=== PATIENT | female | born 1960 | race Caucasian/White ===

== ENCOUNTER 2019-01-30 07:50 | Emergency (ER) | payer BC ==
--- OUTSIDE RECORDS SUMMARY | 2019-01-30 08:04 | XMS REPORT | Continuity of Care Document ---
:1960 External Reference #:[id number] Author Name Bhavana Ragland, [employer] Address [address] [place] [address] Care Team Providers Name Role Phone Danna Capps MD - Internal Medicine Care Team Information International Logistics Coordinator [phone] Jose Newton M.D. - Radiation Care Team Information International Logistics Coordinator [phone] Oncology Problems Active Problems Provider Date Vitamin D deficiency Wilma Goodrich DO Onset: 08/28/2018 Malignant neoplasm of lower lobe, bronchus or Wilma Goodrich DO Onset: 04/2019 lung Screening for malignant neoplasm of colon Chirag Moran MD Onset: 06/01/2016 Digestive symptom Chirag Moran MD Onset: 06/01/2016 Social History Type Date Description Comments Sex Unknown ETOH Use Currently consumes alcohol socially Tobacco Use Start: Unknown End: Patient is a former smoker Recreational Drug Use Denies Drug Use Allergies, Adverse Reactions, Alerts Active Allergies Reaction Severity Comments Date NKDA 08/17/2018 Decongestion make Pt feel high 08/17/2018 Inactive Allergies NKDA 06/01/2016 NKDA 08/17/2018 Medications Active Medications SIG Qnty Indications Ordering Date Provider Docu Soft 1 capsule by mouth 60caps Bokelseyal, 10/11/2018 100mg twice a day as Wilma, DO Capsules needed for constipation Senokot take 1-2 tablets by 60tabs Boufal, 10/11/2018 8.6mg Tablets mouth twice daily Wilma, DO as needed for constipation Emla apply 20 min prior 75gm Crystal, 08/29/2018 2.5-2.5% Cream to port access Wilma, DO Decadron 1 tabl by mouth 6tabs Crystal, 08/28/2018 4mg Tablets twice a day start DO Wilma day before chmo Pantoprazole Sodium 1 tabl by mouth 90tabs Crystal, 08/28/2018 every day DO Wilma 40mg Tablets Ondansetron take one tablet by 30tabs Vidawv, 08/28/2018 8mg Tablets mouth every 8 hours DO Wilma Dispers as needed for nausea Folic Acid 1 tabl by mouth 30tabs Crystal, 08/19/2018 1mg Tablets every day DO Wilma Celexa 1 by mouth every Unknown 20mg Tablets day Meloxicam 1 tablet daily Unknown 15mg Tablets Symbicort 2 puffs PO bid Lamar, 80-4.5mcg/Act Gala Garcia Aerosol Bupropion Rom, Hydrochloride ER (XL) Gypsy BRIGHT 300mg Tablets ER 24HR History Medications Ergocalciferol 1 cap by mouth 6caps Wilma Goodrich, 08/18/2018 - 98358Heyl every week DO 01/03/2019 Capsules Medications Administered in Office Medication SIG Qnty Indications Ordering Provider Date Vitamin B12 Injection 1000 Wilma Goodrich, DO 08/17/2018 mcg/Ml Injection Immunizations Description No Information Available Vital Signs Date Vital Result Comment 01/03/2019 10:35am BP Systolic 144 mmHg BP Diastolic 96 mmHg Body Temperature 97.3 F Heart Rate 88 /min Respiratory Rate 20 /min Weight 219.00 lb O2 % BldC Oximetry 97 % Pain Level 0 12/13/2018 10:20am BP Systolic 134 mmHg Left BP Diastolic 91 mmHg Left Body Temperature 97.7 F Heart Rate 96 /min Respiratory Rate 20 /min Weight 217.38 lb O2 % BldC Oximetry 97 % Pain Level 0 Results Test Date Facility Test Result H/L Range Note CBC 01/02/2019 [facility] White Blood 4.5 K/uL Normal 3.1-10.7 1 W/Automated [address] [place] [address] [phone] Red Blood Count 3.68 M/uL Low 3.90-5.40 Hemoglobin 12.6 gm/dL Normal 11.6-15.8 Hematocrit 36.9 % Normal 36.0-46.1 Mean Cell Volume 100.3 fl High 80.9-99.0 Mean Corpuscular HGB 34.2 pg High 25.9-32.7 Mean Corpuscular HGB Conc 34.1 g/dL Normal 30.8-34.3 Platelet Count 178 K/uL Normal 155-360 Red Cell Distri Width SD 59.3 fl High 36-47 Red Cell Distri Width %CV 16.2 % High 11.7-14.4 Mean Platelet Volume 9.3 fl Normal 8.9-12.4 Neut% 89.4 % High 40.4-72.8 Lymph % 7.2 % Low 20.0-42.0 Evans % 2.5 % Low 4.3-13.2 Eo% 0.0 % Normal 0.0-6.6 Bas% 0.2 % Normal 0.0-1.1 Immature Grans 0.7 % Normal 0.0-5.0 NRBC % 0.0 /100WBC < 10/ 100 WBC Neut# 3.98 K/uL Normal 1.8-7.0 Lymph # 0.32 K/uL Low 1.0-4.0 Evans # 0.11 K/uL Low 0.3-0.9 Eos # 0.00 K/uL Normal 0.0-0.5 Baso # 0.01 K/uL Normal 0.0-0.1 Immature Grans Absolute 0.03 K/uL NRBC # 0.00 K/uL Comprehensive Metabolic 01/02/2019 [facility] Glucose 201 mg/dL High 74-106 Panel [address] [place] [address] [phone] BUN 21 mg/dL High 7-18 Creatinine 1.0 mg/dL Normal 0.6-1.3 Glom Filtration Rate, Estimate >60 mL/min >60 If >60 mL/min >60 2 BUN/Creat 21.0 ratio Sodium 136 mmol/L Normal 136-145 Potassium 4.3 mmol/L Normal 3.5-5.1 Chloride 105 mmol/L Normal 98-107 Carbon Dioxide 23 mmol/L Normal 21-32 Anion Gap 8 mEq/L Normal 8-16 Calcium 9.1 mg/dL Normal 8.5-10.1 Total Protein 7.7 g/dL Normal 6.4-8.2 Albumin 3.2 g/dL Low 3.4-5.0 Globulin 4.5 g/dL High 1.9-4.3 Alb/Glob 0.7 ratio Bilirubin,Total 0.2 mg/dL Normal 0.2-1.0 Sgot/Ast 30 U/L Normal 15-37 SGPT/Alt 45 U/L Normal 12-78 Alkaline Phosphatase 146 U/L High 45-117 Laboratory test 01/02/2019 [facility] Magnesium 2.0 mg/dL Normal 1.8-2.[address] [place], [place] [id number] [phone] CBC W/Automated 12/27/2018 [facility] White Blood 4.2 K/uL Normal 3.1-10.7 [address] [place] [address] [phone] Red Blood Count 3.33 M/uL Low 3.90-5.40 Hemoglobin 11.1 gm/dL Low 11.6-15.8 Hematocrit 33.3 % Low 36.0-46.1 Mean Cell Volume 100.0 fl High 80.9-99.0 Mean Corpuscular HGB 33.3 pg High 25.9-32.7 Mean Corpuscular HGB Conc 33.3 g/dL Normal 30.8-34.3 Platelet Count 104 K/uL Low 155-360 Red Cell Distri Width SD 55.5 fl High 36-47 Red Cell Distri Width %CV 15.9 % High 11.7-14.4 Mean Platelet Volume 9.2 fl Normal 8.9-12.4 Neut% 66.8 % Normal 40.4-72.8 Lymph % 13.4 % Low 20.0-42.0 Evans % 17.9 % High 4.3-13.2 Eo% 1.2 % Normal 0.0-6.6 Bas% 0.2 % Normal 0.0-1.1 Immature Grans 0.5 % Normal 0.0-5.0 NRBC % 0.0 /100WBC < 10/ 100 WBC Neut# 2.79 K/uL Normal 1.8-7.0 Lymph # 0.56 K/uL Low 1.0-4.0 Evans # 0.75 K/uL Normal 0.3-0.9 Eos # 0.05 K/uL Normal 0.0-0.5 Baso # 0.01 K/uL Normal 0.0-0.1 Immature Grans Absolute 0.02 K/uL NRBC # 0.00 K/uL Differential-WBC Confirm 12/19/2018 [facility] Total Cells 100 #CELLS [address] [place] [address] [phone] Neutrophils% 65 % Normal 33-73 Lymph% 20 % Normal 20-42 Monocyte% 11 % High 0-10 Eosinophil% 1 % Normal 0-5 Basophil% 3 % High 0-2 Platelet Estimate NORMAL RBC Morphology NORMAL Laboratory test 12/19/2018 [facility] Path Review: <pending> finding [address] [place] [address] [phone] Slide Review 12/19/2018 [facility] Slide Review DIFF ORDERED [address] [place], [place] [id number] [phone] Laboratory test 12/19/2018 [facility] Vitamin 24.5 ng/mL Low 30.0- 4 finding [address] D,25-Hydroxy 100.0 [place] [address] [phone] Vitamin B12 And 12/19/2018 [facility] Vitamin B12 1343 pg/mL High 193-9 Folate [address] [place], [place] [id number] [phone] Folic Acid > 20.0 ng/mL High 3.1-17.5 Laboratory test 12/19/2018 [facility] Ferritin 618 ng/mL High 8-252 finding [address] [place] [address] [phone] Iron-Tibc-%Sat 12/19/2018 [facility] Serum Iron 264 g/dL High 50-170 [address] [place] [address] [phone] Total Iron Binding Capacity 332 g/dL Normal 250-450 Transferrin %Saturation 80 % High 12-57 Laboratory test 12/19/2018 [facility] Magnesium 2.1 mg/dL Normal 1.8-2.4 finding [address] [place] [address] [phone] Comprehensive 12/19/2018 [facility] Glucose 106 mg/dL Normal 74-106 Metabolic Panel [address] [place] [address] [phone] BUN 17 mg/dL Normal 7-18 Creatinine 0.9 mg/dL Normal 0.6-1.3 Glom Filtration Rate, Estimate >60 mL/min >60 If >60 mL/min >60 5 BUN/Creat 18.8 ratio Sodium 140 mmol/L Normal 136-145 Potassium 4.3 mmol/L Normal 3.5-5.1 Chloride 106 mmol/L Normal 98-107 Carbon Dioxide 29 mmol/L Normal 21-32 Anion Gap 5 mEq/L Low 8-16 Calcium 8.8 mg/dL Normal 8.5-10.1 Total Protein 7.1 g/dL Normal 6.4-8.2 Albumin 3.3 g/dL Low 3.4-5.0 Globulin 3.8 g/dL Normal 1.9-4.3 Alb/Glob 0.9 ratio Bilirubin,Total 0.4 mg/dL Normal 0.2-1.0 Sgot/Ast 33 U/L Normal 15-37 SGPT/Alt 76 U/L 12-78 Alkaline Phosphatase 125 U/L High 45-117 CBC W/Automated 12/19/2018 [facility] White Blood 2.6 K/uL Low 3.1-10.[address] [place] [address] [phone] Red Blood Count 3.56 M/uL Low 3.90-5.40 Hemoglobin 11.9 gm/dL Normal 11.6-15.8 Hematocrit 34.9 % Low 36.0-46.1 Mean Cell Volume 98.0 fl Normal 80.9-99.0 Mean Corpuscular HGB 33.4 pg High 25.9-32.7 Mean Corpuscular HGB Conc 34.1 g/dL Normal 30.8-34.3 Platelet Count 168 K/uL Normal 155-360 Red Cell Distri Width SD 57.0 fl High 36-47 Red Cell Distri Width %CV 15.8 % High 11.7-14.4 Mean Platelet Volume 8.9 fl Normal 8.9-12.4 Neut% 60.7 % Normal 40.4-72.8 Lymph % 22.0 % Normal 20.0-42.0 Evans % 14.5 % High 4.3-13.2 Eo% 1.6 % Normal 0.0-6.6 Bas% 0.8 % Normal 0.0-1.1 Immature Grans 0.4 % Normal 0.0-5.0 NRBC % 0.0 /100WBC < 10/ 100 WBC Neut# 1.55 K/uL Low 1.8-7.0 Lymph # 0.56 K/uL Low 1.0-4.0 Evans # 0.37 K/uL Normal 0.3-0.9 Eos # 0.04 K/uL Normal 0.0-0.5 Baso # 0.02 K/uL Normal 0.0-0.1 Immature Grans Absolute 0.01 K/uL NRBC # 0.00 K/uL Differential-WBC Confirm 12/13/2018 [facility] Total Cells 100 #CELLS 6 [address] [place] [address] [phone] Neutrophils% 92 % High 33-73 Lymph% 7 % Low 20-42 Monocyte% 1 % Normal 0-10 Platelet Estimate NORMAL Polychromasia 0-1+ Anisocytosis 0-1+ Macrocytosis 0-1+ Laboratory test 12/13/2018 [facility] Magnesium 2.1 mg/dL Normal 1.8-2.4 7 finding [address] [place], [place] [id number] [phone] Slide Review DIFF ORDERED 8 Comprehensive Metabolic 12/13/2018 [facility] Glucose 200 mg/dL High 74-106 Panel [address] [place], [place] [id number] [phone] BUN 17 mg/dL Normal 7-18 Creatinine 0.8 mg/dL Normal 0.6-1.3 Glom Filtration Rate, Estimate >60 mL/min >60 If >60 mL/min >60 9 BUN/Creat 21.2 ratio Sodium 139 mmol/L Normal 136-145 Potassium 3.9 mmol/L Normal 3.5-5.1 Chloride 108 mmol/L High 98-107 Carbon Dioxide 25 mmol/L Normal 21-32 Anion Gap 6 mEq/L Low 8-16 Calcium 9.3 mg/dL Normal 8.5-10.1 Total Protein 7.8 g/dL Normal 6.4-8.2 Albumin 3.4 g/dL Normal 3.4-5.0 Globulin 4.4 g/dL High 1.9-4.3 Alb/Glob 0.8 ratio Bilirubin,Total 0.3 mg/dL Normal 0.2-1.0 Sgot/Ast 27 U/L Normal 15-37 SGPT/Alt 38 U/L Normal 12-78 Alkaline Phosphatase 139 U/L High 45-117 CBC W/Automated 12/13/2018 [facility] White Blood 6.6 K/uL Normal 3.1-10.[address] [place], [place] [id number] [phone] Red Blood Count 3.71 M/uL Low 3.90-5.40 Hemoglobin 12.1 gm/dL Normal 11.6-15.8 Hematocrit 35.9 % Low 36.0-46.1 Mean Cell Volume 96.8 fl Normal 80.9-99.0 Mean Corpuscular HGB 32.6 pg Normal 25.9-32.7 Mean Corpuscular HGB Conc 33.7 g/dL Normal 30.8-34.3 Platelet Count 234 K/uL Normal 155-360 Red Cell Distri Width SD 63.7 fl High 36-47 Red Cell Distri Width %CV 17.7 % High 11.7-14.4 Mean Platelet Volume 9.0 fl Normal 8.9-12.4 Neut% 88.3 % High 40.4-72.8 Lymph % 5.9 % Low 20.0-42.0 Evans % 3.6 % Low 4.3-13.2 Eo% 1.5 % Normal 0.0-6.6 Bas% 0.2 % Normal 0.0-1.1 Immature Grans 0.5 % Normal 0.0-5.0 NRBC % 0.0 /100WBC < 10/ 100 WBC Neut# 5.84 K/uL Normal 1.8-7.0 Lymph # 0.39 K/uL Low 1.0-4.0 Evans # 0.24 K/uL Low 0.3-0.9 Eos # 0.10 K/uL Normal 0.0-0.5 Baso # 0.01 K/uL Normal 0.0-0.1 Immature Grans Absolute 0.03 K/uL NRBC # 0.00 K/uL CBC W/Automated 12/06/2018 [facility] White 4.6 K/uL Normal 3.1-10.7 [address] [place] [address] Count [phone] Red Blood Count 3.55 M/uL Low 3.90-5.40 Hemoglobin 11.2 gm/dL Low 11.6-15.8 Hematocrit 34.8 % Low 36.0-46.1 Mean Cell Volume 98.0 fl Normal 80.9-99.0 Mean Corpuscular HGB 31.5 pg Normal 25.9-32.7 Mean Corpuscular HGB Conc 32.2 g/dL Normal 30.8-34.3 Platelet Count 134 K/uL Low 155-360 Red Cell Distri Width SD 65.7 fl High 36-47 Red Cell Distri Width %CV 18.7 % High 11.7-14.4 Mean Platelet Volume 9.2 fl Normal 8.9-12.4 Neut% 66.9 % Normal 40.4-72.8 Lymph % 13.1 % Low 20.0-42.0 Evans % 18.7 % High 4.3-13.2 Eo% 0.7 % Normal 0.0-6.6 Bas% 0.2 % Normal 0.0-1.1 Immature Grans 0.4 % Normal 0.0-5.0 NRBC % 0.0 /100WBC < 10/ 100 WBC Neut# 3.07 K/uL Normal 1.8-7.0 Lymph # 0.60 K/uL Low 1.0-4.0 Evans # 0.86 K/uL Normal 0.3-0.9 Eos # 0.03 K/uL Normal 0.0-0.5 Baso # 0.01 K/uL Normal 0.0-0.1 Immature Grans Absolute 0.02 K/uL NRBC # 0.00 K/uL Comprehensive Metabolic 12/06/2018 [facility] Glucose 120 mg/dL High 74-106 Panel [address] [place] [address] [phone] BUN 21 mg/dL High 7-18 Creatinine 1.0 mg/dL Normal 0.6-1.3 Glom Filtration Rate, Estimate >60 mL/min >60 If >60 mL/min >60 11 BUN/Creat 21.0 ratio Sodium 141 mmol/L Normal 136-145 Potassium 3.9 mmol/L Normal 3.5-5.1 Chloride 109 mmol/L High 98-107 Carbon Dioxide 26 mmol/L Normal 21-32 Anion Gap 6 mEq/L Low 8-16 Calcium 8.7 mg/dL Normal 8.5-10.1 Total Protein 7.3 g/dL Normal 6.4-8.2 Albumin 3.3 g/dL Low 3.4-5.0 Globulin 4.0 g/dL Normal 1.9-4.3 Alb/Glob 0.8 ratio Bilirubin,Total 0.3 mg/dL Normal 0.2-1.0 Sgot/Ast 32 U/L Normal 15-37 SGPT/Alt 49 U/L Normal 12-78 Alkaline Phosphatase 138 U/L High 45-117 Laboratory test 12/06/2018 [facility] Magnesium 2.3 mg/dL Normal 1.8-2.4 [address] [place] [address] [phone] CBC W/Automated 11/27/2018 [facility] White Blood 4.0 K/uL Normal 3.1-10.7 [address] [place] [address] [phone] Red Blood Count 3.96 M/uL Normal 3.90-5.40 Hemoglobin 12.5 gm/dL Normal 11.6-15.8 Hematocrit 37.0 % Normal 36.0-46.1 Mean Cell Volume 93.4 fl Normal 80.9-99.0 Mean Corpuscular HGB 31.6 pg Normal 25.9-32.7 Mean Corpuscular HGB Conc 33.8 g/dL Normal 30.8-34.3 Platelet Count 223 K/uL Normal 155-360 Red Cell Distri Width SD 62.4 fl High 36-47 Red Cell Distri Width %CV 18.2 % High 11.7-14.4 Mean Platelet Volume 8.4 fl Low 8.9-12.4 Neut% 79.1 % High 40.4-72.8 Lymph % 12.3 % Low 20.0-42.0 Evans % 6.0 % Normal 4.3-13.2 Eo% 1.3 % Normal 0.0-6.6 Bas% 0.8 % Normal 0.0-1.1 Immature Grans 0.5 % Normal 0.0-5.0 NRBC % 0.0 /100WBC < 10/ 100 WBC Neut# 3.17 K/uL Normal 1.8-7.0 Lymph # 0.49 K/uL Low 1.0-4.0 Evans # 0.24 K/uL Low 0.3-0.9 Eos # 0.05 K/uL Normal 0.0-0.5 Baso # 0.03 K/uL Normal 0.0-0.1 Immature Grans Absolute 0.02 K/uL NRBC # 0.00 K/uL Comprehensive 11/27/2018 [facility] Glucose 78 mg/dL Normal 74-106 Metabolic Panel [address] [place] [address] [phone] BUN 21 mg/dL High 7-18 Creatinine 0.9 mg/dL Normal 0.6-1.3 Glom Filtration Rate, Estimate >60 mL/min >60 If >60 mL/min >60 14 BUN/Creat 23.3 ratio Sodium 139 mmol/L Normal 136-145 Potassium 4.4 mmol/L Normal 3.5-5.1 Chloride 106 mmol/L Normal 98-107 Carbon Dioxide 28 mmol/L Normal 21-32 Anion Gap 5 mEq/L Low 8-16 Calcium 8.3 mg/dL Low 8.5-10.1 Total Protein 7.2 g/dL Normal 6.4-8.2 Albumin 3.2 g/dL Low 3.4-5.0 Globulin 4.0 g/dL Normal 1.9-4.3 Alb/Glob 0.8 ratio Bilirubin,Total 0.4 mg/dL Normal 0.2-1.0 Sgot/Ast 30 U/L Normal 15-37 SGPT/Alt 54 U/L Normal 12-78 Alkaline Phosphatase 145 U/L High 45-117 Laboratory test 11/27/2018 [facility] Magnesium 2.4 Normal 1.8-2.4 [address] mg/[place] [address] [phone] Slide Review 11/21/2018 [facility] Slide Review (SEE [address], [address] NOTE) 17 [place] [address] [phone] Laboratory test 11/21/2018 [facility] Magnesium 2.3 Normal 1.8-2.[address] mg/[place] [address] [phone] Comprehensive 11/21/2018 [facility] Glucose 209 High 74-106 Metabolic Panel [address] mg/[place] [address] [phone] BUN 17 mg/dL Normal 7-18 Creatinine 1.0 mg/dL Normal 0.6-1.3 Glom Filtration Rate, Estimate >60 mL/min >60 If >60 mL/min >60 18 BUN/Creat 17.0 ratio Sodium 139 mmol/L Normal 136-145 Potassium 4.4 mmol/L Normal 3.5-5.1 Chloride 108 mmol/L High 98-107 Carbon Dioxide 24 mmol/L Normal 21-32 Anion Gap 7 mEq/L Low 8-16 Calcium 9.0 mg/dL Normal 8.5-10.1 Total Protein 7.6 g/dL Normal 6.4-8.2 Albumin 3.3 g/dL Low 3.4-5.0 Globulin 4.3 g/dL Normal 1.9-4.3 Alb/Glob 0.8 ratio Bilirubin,Total 0.2 mg/dL Normal 0.2-1.0 Sgot/Ast 28 U/L Normal 15-37 SGPT/Alt 39 U/L Normal 12-78 Alkaline Phosphatase 153 U/L High 45-117 CBC W/Automated 11/21/2018 [facility] White Blood 4.3 K/uL Normal 3.1-10.[address] [place] [address] [phone] Red Blood Count 3.63 M/uL Low 3.90-5.40 Hemoglobin 11.0 gm/dL Low 11.6-15.8 Hematocrit 34.7 % Low 36.0-46.1 Mean Cell Volume 95.6 fl Normal 80.9-99.0 Mean Corpuscular HGB 30.3 pg Normal 25.9-32.7 Mean Corpuscular HGB Conc 31.7 g/dL Normal 30.8-34.3 Platelet Count 229 K/uL Normal 155-360 Red Cell Distri Width SD 67.1 fl High 36-47 Red Cell Distri Width %CV 19.0 % High 11.7-14.4 Mean Platelet Volume 8.9 fl Normal 8.9-12.4 Neut% 82.9 % High 40.4-72.8 Lymph % 9.6 % Low 20.0-42.0 Evans % 6.1 % Normal 4.3-13.2 Eo% 0.0 % Normal 0.0-6.6 Bas% 0.2 % Normal 0.0-1.1 Immature Grans 1.2 % Normal 0.0-5.0 NRBC % 0.0 /100WBC < 10/ 100 WBC Neut# 3.56 K/uL Normal 1.8-7.0 Lymph # 0.41 K/uL Low 1.0-4.0 Evans # 0.26 K/uL Low 0.3-0.9 Eos # 0.00 K/uL Normal 0.0-0.5 Baso # 0.01 K/uL Normal 0.0-0.1 Immature Grans Absolute 0.05 K/uL NRBC # 0.00 K/uL CBC W/Automated 10/31/2018 [facility] White 4.2 K/uL Normal 3.1-10.7 19 Diff [address] [facility] [place] [address] Count [phone] Red Blood Count 3.93 M/uL Normal 3.90-5.40 Hemoglobin 11.7 gm/dL Normal 11.6-15.8 Hematocrit 35.5 % Low 36.0-46.1 Mean Cell Volume 90.3 fl Normal 80.9-99.0 Mean Corpuscular HGB 29.8 pg Normal 25.9-32.7 Mean Corpuscular HGB Conc 33.0 g/dL Normal 30.8-34.3 Platelet Count 259 K/uL Normal 155-360 Red Cell Distri Width SD 62.7 fl High 36-47 Red Cell Distri Width %CV 19.6 % High 11.7-14.4 Mean Platelet Volume 8.9 fl Normal 8.9-12.4 Neut% 80.6 % High 40.4-72.8 Lymph % 10.3 % Low 20.0-42.0 Evans % 7.9 % Normal 4.3-13.2 Eo% 0.0 % Normal 0.0-6.6 Bas% 0.2 % Normal 0.0-1.1 Immature Grans 1.0 % Normal 0.0-5.0 NRBC % 0.0 /100WBC < 10/ 100 WBC Neut# 3.38 K/uL Normal 1.8-7.0 Lymph # 0.43 K/uL Low 1.0-4.0 Evans # 0.33 K/uL Normal 0.3-0.9 Eos # 0.00 K/uL Normal 0.0-0.5 Baso # 0.01 K/uL Normal 0.0-0.1 Immature Grans Absolute 0.04 K/uL NRBC # 0.00 K/uL Comprehensive Metabolic 10/31/2018 [facility] Glucose 112 mg/dL High 74-[address] [place] [address] [phone] BUN 15 mg/dL Normal 7-18 Creatinine 0.9 mg/dL Normal 0.6-1.3 Glom Filtration Rate, Estimate >60 mL/min >60 If >60 mL/min >60 20 BUN/Creat 16.6 ratio Sodium 136 mmol/L Normal 136-145 Potassium 4.6 mmol/L Normal 3.5-5.1 Chloride 106 mmol/L Normal 98-107 Carbon Dioxide 23 mmol/L Normal 21-32 Anion Gap 7 mEq/L Low 8-16 Calcium 9.1 mg/dL Normal 8.5-10.1 Total Protein 8.1 g/dL Normal 6.4-8.2 Albumin 3.5 g/dL Normal 3.4-5.0 Globulin 4.6 g/dL High 1.9-4.3 Alb/Glob 0.8 ratio Bilirubin,Total 0.3 mg/dL Normal 0.2-1.0 Sgot/Ast 31 U/L Normal 15-37 SGPT/Alt 49 U/L Normal 12-78 Alkaline Phosphatase 170 U/L High 45-117 Laboratory test 10/31/2018 [facility] Magnesium 2.3 mg/dL Normal 1.8-2.4 [address] [place] [address] [phone] CBC W/Automated 10/10/2018 [facility] White Blood 2.9 K/uL Low 3.1-10.[address] [place] [address] [phone] Red Blood Count 3.91 M/uL Normal 3.90-5.40 Hemoglobin 11.1 gm/dL Low 11.6-15.8 Hematocrit 34.2 % Low 36.0-46.1 Mean Cell Volume 87.5 fl Normal 80.9-99.0 Mean Corpuscular HGB 28.4 pg Normal 25.9-32.7 Mean Corpuscular HGB Conc 32.5 g/dL Normal 30.8-34.3 Platelet Count 184 K/uL Normal 155-360 Red Cell Distri Width SD 48.0 fl High 36-47 Red Cell Distri Width %CV 17.0 % High 11.7-14.4 Mean Platelet Volume 8.9 fl Normal 8.9-12.4 Neut% 89.2 % High 40.4-72.8 Lymph % 5.6 % Low 20.0-42.0 Evans % 4.2 % Low 4.3-13.2 Eo% 0.0 % Normal 0.0-6.6 Bas% 0.3 % Normal 0.0-1.1 Immature Grans 0.7 % Normal 0.0-5.0 NRBC % 0.0 /100WBC < 10/ 100 WBC Neut# 2.56 K/uL Normal 1.8-7.0 Lymph # 0.16 K/uL Low 1.0-4.0 Evans # 0.12 K/uL Low 0.3-0.9 Eos # 0.00 K/uL Normal 0.0-0.5 Baso # 0.01 K/uL Normal 0.0-0.1 Immature Grans Absolute 0.02 K/uL NRBC # 0.00 K/uL Comprehensive Metabolic 10/10/2018 [facility] Glucose 259 mg/dL High 74-106 Panel [address] [place] [address] [phone] BUN 12 mg/dL Normal 7-18 Creatinine 0.9 mg/dL Normal 0.6-1.3 Glom Filtration Rate, Estimate >60 mL/min >60 If >60 mL/min >60 22 BUN/Creat 13.3 ratio Sodium 136 mmol/L Normal 136-145 Potassium 4.1 mmol/L Normal 3.5-5.1 Chloride 104 mmol/L Normal 98-107 Carbon Dioxide 22 mmol/L Normal 21-32 Anion Gap 10 mEq/L Normal 8-16 Calcium 8.9 mg/dL Normal 8.5-10.1 Total Protein 7.5 g/dL Normal 6.4-8.2 Albumin 3.3 g/dL Low 3.4-5.0 Globulin 4.2 g/dL Normal 1.9-4.3 Alb/Glob 0.8 ratio Bilirubin,Total 0.1 mg/dL Low 0.2-1.0 Sgot/Ast 23 U/L Normal 15-37 SGPT/Alt 46 U/L Normal 12-78 Alkaline Phosphatase 132 U/L High 45-117 Laboratory test 10/10/2018 [facility] Magnesium 2.2 mg/dL Normal 1.8-2.[address] [place] [id number] [phone] Slide Review 10/10/2018 [facility] Slide Review DIFF [address] [place] [phone] Laboratory test 10/10/2018 [facility] Path Review: <pending> finding [address] [place] [phone] Differential-WB 10/10/2018 [facility] Total Cells 100 #CELLS C Confirm [address] [place]ed [place] [phone] Neutrophils% 91 % High 33-73 Lymph% 4 % Low 20-42 Monocyte% 3 % Normal 0-10 Eosinophil% 1 % Normal 0-5 Basophil% 1 % Normal 0-2 Platelet Estimate NORMAL Polychromasia 0-1+ Anisocytosis 0-1+ Differential Comment LARGE PLATELETS <SEE NOTE> 23 CBC W/Automated 09/19/2018 [facility] White Blood 4.5 K/uL Normal 3.1-10.[address] [place] [id number] [phone] Red Blood Count 4.19 M/uL Normal 3.90-5.40 Hemoglobin 11.2 gm/dL Low 11.6-15.8 Hematocrit 36.3 % Normal 36.0-46.1 Mean Cell Volume 86.6 fl Normal 80.9-99.0 Mean Corpuscular HGB 26.7 pg Normal 25.9-32.7 Mean Corpuscular HGB Conc 30.9 g/dL Normal 30.8-34.3 Platelet Count 449 K/uL High 155-360 Red Cell Distri Width SD 44.4 fl Normal 36-47 Red Cell Distri Width %CV 14.5 % High 11.7-14.4 Mean Platelet Volume 8.7 fl Low 8.9-12.4 Neut% 85.8 % High 40.4-72.8 Lymph % 8.0 % Low 20.0-42.0 Evans % 4.5 % Normal 4.3-13.2 Eo% 0.0 % Normal 0.0-6.6 Bas% 0.4 % Normal 0.0-1.1 Immature Grans 1.3 % Normal 0.0-5.0 NRBC % 0.0 /100WBC < 10/ 100 WBC Neut# 3.85 K/uL Normal 1.8-7.0 Lymph # 0.36 K/uL Low 1.0-4.0 Evans # 0.20 K/uL Low 0.3-0.9 Eos # 0.00 K/uL Normal 0.0-0.5 Baso # 0.02 K/uL Normal 0.0-0.1 Immature Grans Absolute 0.06 K/uL NRBC # 0.00 K/uL Comprehensive Metabolic 09/19/2018 [facility] Glucose 191 mg/dL High 74-106 Panel [address] [place] [address] [phone] BUN 11 mg/dL Normal 7-18 Creatinine 0.9 mg/dL 0.6-1.3 Glom Filtration Rate, Estimate >60 mL/min >60 If >60 mL/min >60 24 BUN/Creat 12.2 ratio Sodium 135 mmol/L Low 136-145 Potassium 4.1 mmol/L Normal 3.5-5.1 Chloride 104 mmol/L Normal 98-107 Carbon Dioxide 24 mmol/L Normal 21-32 Anion Gap 7 mEq/L Low 8-16 Calcium 8.9 mg/dL Normal 8.5-10.1 Total Protein 8.0 g/dL Normal 6.4-8.2 Albumin 3.1 g/dL Low 3.4-5.0 Globulin 4.9 g/dL High 1.9-4.3 Alb/Glob 0.6 ratio Bilirubin,Total 0.1 mg/dL Low 0.2-1.0 Sgot/Ast 16 U/L Normal 15-37 SGPT/Alt 25 U/L Normal 12-78 Alkaline Phosphatase 116 U/L Normal 45-117 Laboratory test 09/19/2018 [facility] Magnesium 2.2 mg/dL Normal 1.8-2.[address] [place], [place] [phone] CBC W/Automated 09/13/2018 [facility] White Blood 3.5 K/uL Normal 3.1-10.[address] Count [place], [place] [phone] Red Blood Count 3.74 M/uL Low 3.90-5.40 Hemoglobin 9.8 gm/dL Low 11.6-15.8 Hematocrit 32.6 % Low 36.0-46.1 Mean Cell Volume 87.2 fl Normal 80.9-99.0 Mean Corpuscular HGB 26.2 pg Normal 25.9-32.7 Mean Corpuscular HGB Conc 30.1 g/dL Low 30.8-34.3 Platelet Count 330 K/uL Normal 155-360 Red Cell Distri Width SD 43.4 fl Normal 36-47 Red Cell Distri Width %CV 13.9 % Normal 11.7-14.4 Mean Platelet Volume 8.9 fl Normal 8.9-12.4 Neut% 67.4 % Normal 40.4-72.8 Lymph % 18.7 % Low 20.0-42.0 Evans % 12.1 % Normal 4.3-13.2 Eo% 1.2 % Normal 0.0-6.6 Bas% 0.3 % Normal 0.0-1.1 Immature Grans 0.3 % Normal 0.0-5.0 NRBC % 0.0 /100WBC < 10/ 100 WBC Neut# 2.34 K/uL Normal 1.8-7.0 Lymph # 0.65 K/uL Low 1.0-4.0 Evans # 0.42 K/uL Normal 0.3-0.9 Eos # 0.04 K/uL Normal 0.0-0.5 Baso # 0.01 K/uL Normal 0.0-0.1 Immature Grans Absolute 0.01 K/uL NRBC # 0.00 K/uL CBC W/Automated 09/06/2018 [facility] White 4.1 K/uL Normal 3.1-10.7 [address] [place] [address] Count [phone] Red Blood Count 3.76 M/uL Low 3.90-5.40 Hemoglobin 9.9 gm/dL Low 11.6-15.8 Hematocrit 31.9 % Low 36.0-46.1 Mean Cell Volume 84.8 fl Normal 80.9-99.0 Mean Corpuscular HGB 26.3 pg Normal 25.9-32.7 Mean Corpuscular HGB Conc 31.0 g/dL Normal 30.8-34.3 Platelet Count 344 K/uL Normal 155-360 Red Cell Distri Width SD 43.4 fl Normal 36-47 Red Cell Distri Width %CV 13.9 % Normal 11.7-14.4 Mean Platelet Volume 8.3 fl Low 8.9-12.4 Neut% 67.7 % Normal 40.4-72.8 Lymph % 17.4 % Low 20.0-42.0 Evans % 12.0 % Normal 4.3-13.2 Eo% 1.2 % Normal 0.0-6.6 Bas% 0.5 % Normal 0.0-1.1 Immature Grans 1.2 % Normal 0.0-5.0 NRBC % 0.0 /100WBC < 10/ 100 WBC Neut# 2.77 K/uL Normal 1.8-7.0 Lymph # 0.71 K/uL Low 1.0-4.0 Evans # 0.49 K/uL Normal 0.3-0.9 Eos # 0.05 K/uL Normal 0.0-0.5 Baso # 0.02 K/uL Normal 0.0-0.1 Immature Grans Absolute 0.05 K/uL NRBC # 0.00 K/uL Comprehensive 09/06/2018 [facility] Glucose 84 mg/dL Normal 74-106 Metabolic Panel [address] [place] [address] [phone] BUN 9 mg/dL Normal 7-18 Creatinine 0.7 mg/dL Normal 0.6-1.3 Glom Filtration Rate, Estimate >60 mL/min >60 If >60 mL/min >60 26 BUN/Creat 12.8 ratio Sodium 133 mmol/L Low 136-145 Potassium 4.5 mmol/L Normal 3.5-5.1 Chloride 101 mmol/L Normal 98-107 Carbon Dioxide 28 mmol/L Normal 21-32 Anion Gap 4 mEq/L Low 8-16 Calcium 8.8 mg/dL Normal 8.5-10.1 Total Protein 7.5 g/dL Normal 6.4-8.2 Albumin 2.6 g/dL Low 3.4-5.0 Globulin 4.9 g/dL High 1.9-4.3 Alb/Glob 0.5 ratio Bilirubin,Total 0.5 mg/dL Normal 0.2-1.0 Sgot/Ast 30 U/L Normal 15-37 SGPT/Alt 20 U/L Normal 12-78 Alkaline Phosphatase 96 U/L Normal 45-117 Laboratory test 09/06/2018 [facility] Magnesium 2.5 mg/dL High 1.8-2.[address] [place], [place] [id number] [phone] Vitamin B12 And 08/29/2018 [facility] Vitamin B12 719 pg/mL Normal 193-986 [address] [place], [place] [id number] [phone] Folic Acid > 20.0 ng/mL High 3.1-17.5 Laboratory 08/29/2018 [facility] Vitamin 24.1 Low 30.0-100.0 28 test finding [address] D,25-Hydroxy ng/mL [place], [place] [address] [phone] CBC 08/29/2018 [facility] White Blood 9.3 K/uL Normal 3.1-10.7 W/Automated [address] [place] [place] [address] [phone] Red Blood Count 4.07 M/uL Normal 3.90-5.40 Hemoglobin 10.9 gm/dL Low 11.6-15.8 Hematocrit 34.8 % Low 36.0-46.1 Mean Cell Volume 85.5 fl Normal 80.9-99.0 Mean Corpuscular HGB 26.8 pg Normal 25.9-32.7 Mean Corpuscular HGB Conc 31.3 g/dL Normal 30.8-34.3 Platelet Count 496 K/uL High 155-360 Red Cell Distri Width SD 45.1 fl Normal 36-47 Red Cell Distri Width %CV 14.6 % High 11.7-14.4 Mean Platelet Volume 9.0 fl Normal 8.9-12.4 Neut% 66.0 % Normal 40.4-72.8 Lymph % 21.8 % Normal 20.0-42.0 Evans % 8.4 % Normal 4.3-13.2 Eo% 2.3 % Normal 0.0-6.6 Bas% 0.9 % Normal 0.0-1.1 Immature Grans 0.6 % Normal 0.0-5.0 NRBC % 0.0 /100WBC < 10/ 100 WBC Neut# 6.13 K/uL Normal 1.8-7.0 Lymph # 2.02 K/uL Normal 1.0-4.0 Evans # 0.78 K/uL Normal 0.3-0.9 Eos # 0.21 K/uL Normal 0.0-0.5 Baso # 0.08 K/uL Normal 0.0-0.1 Immature Grans Absolute 0.06 K/uL NRBC # 0.00 K/uL Comprehensive Metabolic 08/29/2018 [facility] Glucose 163 mg/dL High 74-106 Panel [address] [place] [address] [phone] BUN 17 mg/dL Normal 7-18 Creatinine 0.9 mg/dL Normal 0.6-1.3 Glom Filtration Rate, Estimate >60 mL/min >60 If >60 mL/min >60 29 BUN/Creat 18.8 ratio Sodium 135 mmol/L Low 136-145 Potassium 4.0 mmol/L Normal 3.5-5.1 Chloride 102 mmol/L Normal 98-107 Carbon Dioxide 27 mmol/L Normal 21-32 Anion Gap 6 mEq/L Low 8-16 Calcium 8.5 mg/dL Normal 8.5-10.1 Total Protein 7.9 g/dL Normal 6.4-8.2 Albumin 3.1 g/dL Low 3.4-5.0 Globulin 4.8 g/dL High 1.9-4.3 Alb/Glob 0.6 ratio Bilirubin,Total 0.2 mg/dL Normal 0.2-1.0 Sgot/Ast 21 U/L Normal 15-37 SGPT/Alt 14 U/L Normal 12-78 Alkaline Phosphatase 91 U/L Normal 45-117 Iron-Tibc-%Sat 08/29/2018 [facility] Serum Iron 26 g/dL Low 50-170 [address] [place] [address] [phone] Total Iron Binding Capacity 231 g/dL Low 250-450 Transferrin %Saturation 11 % Low 12-57 Laboratory test 08/29/2018 [facility] Ferritin 228 ng/mL Normal 8-[address] [place] [address] [phone] Vitamin B12 And 08/17/2018 [facility] Vitamin B12 515 pg/mL Normal 193-[address] [place], [place] [address] [phone] Folic Acid 9.7 ng/mL Normal 3.1-17.5 Laboratory 08/17/2018 [facility] Vitamin 15.5 Low 30.0-100.0 30 test finding [address] D,25-Hydroxy ng/mL [place], [place] [id number] [phone] CBC 08/17/2018 [facility] White Blood 9.1 K/uL Normal 3.1-10.7 W/Automated [address] [place] [address] [phone] Red Blood Count 4.33 M/uL Normal 3.90-5.40 Hemoglobin 11.3 gm/dL Low 11.6-15.8 Hematocrit 36.9 % Normal 36.0-46.1 Mean Cell Volume 85.2 fl Normal 80.9-99.0 Mean Corpuscular HGB 26.1 pg Normal 25.9-32.7 Mean Corpuscular HGB Conc 30.6 g/dL Low 30.8-34.3 Platelet Count 472 K/uL High 155-360 Red Cell Distri Width SD 44.9 fl Normal 36-47 Red Cell Distri Width %CV 14.6 % High 11.7-14.4 Mean Platelet Volume 8.8 fl Low 8.9-12.4 Neut% 66.9 % Normal 40.4-72.8 Lymph % 23.4 % Normal 20.0-42.0 Evans % 7.1 % Normal 4.3-13.2 Eo% 1.5 % Normal 0.0-6.6 Bas% 0.7 % Normal 0.0-1.1 Immature Grans 0.4 % Normal 0.0-5.0 NRBC % 0.0 /100WBC < 10/ 100 WBC Neut# 6.06 K/uL Normal 1.8-7.0 Lymph # 2.12 K/uL Normal 1.0-4.0 Evans # 0.64 K/uL Normal 0.3-0.9 Eos # 0.14 K/uL Normal 0.0-0.5 Baso # 0.06 K/uL Normal 0.0-0.1 Immature Grans Absolute 0.04 K/uL NRBC # 0.00 K/uL 1 C34.31 C78.7 2 Note: Persistent reduction for 3 months or more in an eGFR <60 mL/min/1.73 m2 defines CKD. Patients with eGFR values >/=60 mL/min/1.73 m2 may also have CKD if evidence of persistent proteinuria is present. The original MDRD equation for estimated GFR is not valid for patients less than 18 years of age. Additional information may be found at [email or web address]. 3 C34.31 C78.7 D64.81 4 Vitamin D deficiency has been defined by the [facility] and an Endocrine Society practice guideline as a level of serum 25-OH vitamin D less than 20 ng/mL (1,2). The Endocrine Society went on to further define vitamin D insufficiency as a level between 21 and 29 ng/mL (2). 1. IOM ([facility]). 2010. Dietary reference intakes for calcium and D. [place]: The National Academies Press. 2. Kip MF, Shawn NC, Sultana PEARL, et al. Evaluation, treatment, and prevention of vitamin D deficiency: an Endocrine Society clinical practice guideline. JCEM. 2010; 96(7):1911-30. Performed at: RN - [facility] [address] [id number] Prescription Clerk Lenses: Carlee Ramos MD, Phone: [phone] 5 Note: Persistent reduction for 3 months or more in an eGFR <60 mL/min/1.73 m2 defines CKD. Patients with eGFR values >/=60 mL/min/1.73 m2 may also have CKD if evidence of persistent proteinuria is present. The original MDRD equation for estimated GFR is not valid for patients less than 18 years of age. Additional information may be found at [email or web address]. 6 C34.31 C78.7 Z51.11 E86.[address] GOODRICH [address] GOODRICH 9 Note: Persistent reduction for 3 months or more in an eGFR <60 mL/min/1.73 m2 defines CKD. Patients with eGFR values >/=60 mL/min/1.73 m2 may also have CKD if evidence of persistent proteinuria is present. The original MDRD equation for estimated GFR is not valid for patients less than 18 years of age. Additional information may be found at [email or web address]. 10 C34.31 C78.7 D64.81 E86.0 11 Note: Persistent reduction for 3 months or more in an eGFR <60 mL/min/1.73 m2 defines CKD. Patients with eGFR values >/=60 mL/min/1.73 m2 may also have CKD if evidence of persistent proteinuria is present. The original MDRD equation for estimated GFR is not valid for patients less than 18 years of age. Additional information may be found at [email or web address]. 12 STAT 13 Z51.11 C34.31 C78.7 E86.0 E56.9 E55.9 D64.81 14 Note: Persistent reduction for 3 months or more in an eGFR <60 mL/min/1.73 m2 defines CKD. Patients with eGFR values >/=60 mL/min/1.73 m2 may also have CKD if evidence of persistent proteinuria is present. The original MDRD equation for estimated GFR is not valid for patients less than 18 years of age. Additional information may be found at [email or web address]. 15 STAT [place] PORT DRAW 16 Z51.11 C34.31 C78.7 17 Instrument flagged sample for slide review. Less than 10% Bands seen, no other immature WBC's seen. RBC morphology essentially normal. Platelet estimate = NORMAL 18 Note: Persistent reduction for 3 months or more in an eGFR <60 mL/min/1.73 m2 defines CKD. Patients with eGFR values >/=60 mL/min/1.73 m2 may also have CKD if evidence of persistent proteinuria is present. The original MDRD equation for estimated GFR is not valid for patients less than 18 years of age. Additional information may be found at [email or web address]. 19 C34.31 20 Note: Persistent reduction for 3 months or more in an eGFR <60 mL/min/1.73 m2 defines CKD. Patients with eGFR values >/=60 mL/min/1.73 m2 may also have CKD if evidence of persistent proteinuria is present. The original MDRD equation for estimated GFR is not valid for patients less than 18 years of age. Additional information may be found at [email or web address]. [address] GOODRICH 22 Note: Persistent reduction for 3 months or more in an eGFR <60 mL/min/1.73 m2 defines CKD. Patients with eGFR values >/=60 mL/min/1.73 m2 may also have CKD if evidence of persistent proteinuria is present. The original MDRD equation for estimated GFR is not valid for patients less than 18 years of age. Additional information may be found at [email or web address]. 23 LARGE PLATELETS PRESENT. 24 Note: Persistent reduction for 3 months or more in an eGFR <60 mL/min/1.73 m2 defines CKD. Patients with eGFR values >/=60 mL/min/1.73 m2 may also have CKD if evidence of persistent proteinuria is present. The original MDRD equation for estimated GFR is not valid for patients less than 18 years of age. Additional information may be found at [email or web address]. 25 C34.31 E86.0 26 Note: Persistent reduction for 3 months or more in an eGFR <60 mL/min/1.73 m2 defines CKD. Patients with eGFR values >/=60 mL/min/1.73 m2 may also have CKD if evidence of persistent proteinuria is present. The original MDRD equation for estimated GFR is not valid for patients less than 18 years of age. Additional information may be found at [email or web address]. 27 E56.9 28 Vitamin D deficiency has been defined by the [facility] and an Endocrine Society practice guideline as a level of serum 25-OH vitamin D less than 20 ng/mL (1,2). The Endocrine Society went on to further define vitamin D insufficiency as a level between 21 and 29 ng/mL (2). 1. IOM ([facility]). 2010. Dietary reference intakes for calcium and D. [place]: The National Academies Press. 2. Kip MF, Shawn LOVE, Sultana PEARL, et al. Evaluation, treatment, and prevention of vitamin D deficiency: an Endocrine Society clinical practice guideline. JCEM. 2010; 96(7):1911-30. Performed at: - [facility] [id number] Prescription Clerk Lenses: Carlee Ramos MD, Phone: [phone] 29 Note: Persistent reduction for 3 months or more in an eGFR <60 mL/min/1.73 m2 defines CKD. Patients with eGFR values >/=60 mL/min/1.73 m2 may also have CKD if evidence of persistent proteinuria is present. The original MDRD equation for estimated GFR is not valid for patients less than 18 years of age. Additional information may be found at [email or web address]. 30 Vitamin D deficiency has been defined by the [facility] and an Endocrine Society practice guideline as a level of serum 25-OH vitamin D less than 20 ng/mL (1,2). The Endocrine Society went on to further define vitamin D insufficiency as a level between 21 and 29 ng/mL (2). 1. IOM ([facility]). 2010. Dietary reference intakes for calcium and D. [place]: The National Academies Press. 2. Kip MF, Shawn NC, Sultana PEARL, et al. Evaluation, treatment, and prevention of vitamin D deficiency: an Endocrine Society clinical practice guideline. JCEM. 2010; 96(7):1911-30. Performed at: RN - [facility] [address] [place], [place] [id number] Prescription Clerk Lenses: Carlee Ramos MD, Phone: [phone] Procedures Date Code Description Status 08/29/2018 88848 Irrigation Implanted Venous Access Device For Drug System Completed 08/29/2018 97475 Collect Blood Specimen From Completely Implant Venous Completed Access Dev 08/17/2018 71374 Theraputic Or Diagnostic Injection Completed 08/15/2018 29969 Bronchospasm Provocation Evaluation Multi Spirometric Completed Determinati 08/15/2018 69126 Spirometry Completed Medical Devices Description No Information Available Encounters Type Date Location Provider Dx Diagnosis Office Visit 11/27/2018 9:15a Infusion Center Bhavana Ragland, E86.0 Dehydration SPR[facility]ER C34.31 Malignant neoplasm of lower lobe, right bronchus or lung 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 Office Visit 11/22/2018 11:00a [facility] [place] Z51.11 Encounter for Bhavana Maurer, antineoplastic [facility] [place] chemotherapy C34.31 Malignant neoplasm of lower lobe, right bronchus or lung 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 Office Visit 11/01/2018 11:00a [facility] [place] Z51.11 Encounter for Bhavana Ayala., antineoplastic [place] chemotherapy C34.31 Malignant neoplasm of lower lobe, right bronchus or lung 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 D64.81 Anemia due to antineoplastic chemotherapy Office Visit 10/11/2018 10[facility] [place] Z51.11 Encounter for Bhavana Ayala., antineoplastic [place] chemotherapy C34.31 Malignant neoplasm of lower lobe, right bronchus or lung 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0 Nausea Office Visit 08/28/2018 7:45a Oncology Office [place], C34.31 Malignant Wilma, DO neoplasm of lower lobe, right bronchus or lung E55.9 Vitamin D deficiency, unspecified Office Visit 08/17/2018 8:15a Oncology Office [place], C34.31 Malignant Wilma, DO neoplasm of lower lobe, right bronchus or lung Assessments Date Code Description Provider 01/03/2019 Z51.11 Encounter for antineoplastic chemotherapy EllynBhavana, [place] [place] 01/03/2019 C34.31 Malignant neoplasm of lower lobe, right EllynBhavana , [place] [place] bronchus or lung 01/03/2019 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 Bhavana Ragland, [place] intrahepatic bile duct 01/03/2019 D64.81 Anemia due to antineoplastic chemotherapy Bhavana Ragland, [facility] [place] 01/02/2019 C34.31 Malignant neoplasm of lower lobe, right Boufal, Wilma, DO bronchus or lung 01/02/2019 C34.31 Malignant neoplasm of lower lobe, right Oncology Nurse bronchus or lung 01/02/2019 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 Boufal, Wilma , DO intrahepatic bile duct 01/02/2019 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 Oncology Nurse intrahepatic bile duct 12/27/2018 C34.31 Malignant neoplasm of lower lobe, right Boufal, Wilma, DO bronchus or lung 12/27/2018 C34.31 Malignant neoplasm of lower lobe, right Oncology Nurse bronchus or lung 12/27/2018 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 Boufal, Wilma , DO intrahepatic bile duct 12/27/2018 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 Oncology Nurse intrahepatic bile duct 12/27/2018 D64.81 Anemia due to antineoplastic chemotherapy Boufal, Wilma , DO 12/27/2018 D64.81 Anemia due to antineoplastic chemotherapy Oncology Nurse 12/19/2018 C34.31 Malignant neoplasm of lower lobe, right Boufal, Wilma, DO bronchus or lung 12/19/2018 C34.31 Malignant neoplasm of lower lobe, right Oncology Nurse bronchus or lung 12/19/2018 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 Boufal, Wilma , DO intrahepatic bile duct 12/19/2018 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 Oncology Nurse intrahepatic bile duct 12/19/2018 D64.81 Anemia due to antineoplastic chemotherapy Boufal, Wilma , DO 12/19/2018 D64.81 Anemia due to antineoplastic chemotherapy Oncology Nurse 12/06/2018 C34.31 Malignant neoplasm of lower lobe, right Boufal, Wilma, DO bronchus or lung 12/06/2018 C34.31 Malignant neoplasm of lower lobe, right Oncology Nurse bronchus or lung 12/06/2018 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 Bhavana Ragland., SPR[place]ER intrahepatic bile duct 11/21/2018 Z51.11 Encounter for antineoplastic chemotherapy Wilma Goodrich , DO 11/21/2018 Z51.11 Encounter for antineoplastic chemotherapy Oncology Nurse 11/21/2018 C34.31 Malignant neoplasm of lower lobe, right Wilma Goodrich, DO bronchus or lung 11/21/2018 C34.31 Malignant neoplasm of lower lobe, right Oncology Nurse bronchus or lung 11/21/2018 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 Wilma Goodrich , DO intrahepatic bile duct 11/21/2018 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 Oncology Nurse intrahepatic bile duct 11/01/2018 Z51.11 Encounter for antineoplastic chemotherapy Bhavana Ragland, [employer] [employer]ER 11/01/2018 C34.31 Malignant neoplasm of lower lobe, right Bhavana Ragland , [place] bronchus or lung 11/01/2018 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 Bhavana Ragland., [employer] [place] intrahepatic bile 10/11/2018 D64.81 Anemia due to antineoplastic chemotherapy Bhavana Ragland., [employer] [place] 10/10/2018 C34.31 Malignant neoplasm of lower lobe, right Boufal, Wilma, DO bronchus or lung 10/10/2018 C34.31 Malignant neoplasm of lower lobe, right Oncology Nurse bronchus or lung 10/02/2018 C34.31 Malignant neoplasm of lower lobe, right Boufal, Wilma, DO bronchus or lung 10/02/2018 C34.31 Malignant neoplasm of lower lobe, right Oncology Nurse bronchus or lung 09/20/2018 Z51.11 Encounter for antineoplastic chemotherapy Bhavana Ragland., [facility] [place] 09/20/2018 C34.31 Malignant neoplasm of lower lobe, right Bhavana Ragland. 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 Bhavana Ragland., [employer] intrahepatic bile 09/20/2018 D64.81 Anemia due to antineoplastic chemotherapy Bhavana Ragland, [employer] 09/19/2018 C34.31 Malignant neoplasm of lower lobe, right Boufal, Wilma, DO bronchus or lung 09/19/2018 C34.31 Malignant neoplasm of lower lobe, right Oncology Nurse bronchus or lung 09/13/2018 C34.31 Malignant neoplasm of lower lobe, right Boufal, Wilma, DO bronchus or lung 09/13/2018 C34.31 Malignant neoplasm of lower lobe, right Oncology Nurse bronchus or lung 09/06/2018 E86.0 Dehydration Bhavana Ragland., [employer] [place] 09/06/2018 C34.31 Malignant neoplasm of lower lobe, right Bhavana Ragland B. 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 Bhavana Ragland, [place] intrahepatic bile 08/30/2018 R11.0 Nausea Bhavana Ragland, [place] 08/29/2018 E56.9 Vitamin deficiency, unspecified Boufal, Wilma, DO 08/29/2018 E56.9 Vitamin deficiency, unspecified Oncology Nurse 08/29/2018 C34.31 Malignant neoplasm of lower lobe, right Boufal, Wilma, DO bronchus or lung 08/28/2018 C34.31 Malignant neoplasm of lower lobe, right Boufal, Wilma, DO bronchus or lung 08/28/2018 E55.9 Vitamin D deficiency, unspecified Boufal, Wilma, DO 08/17/2018 C34.31 Malignant neoplasm of lower lobe, right Boufal, Wilma, DO bronchus or lung 08/15/2018 C34.31 Malignant neoplasm of lower lobe, right Deven Francis MD bronchus or lung Plan of Treatment Future Appointment(s):01/24/2019 10:30 am - Infusion Chair 1 at [facility]/24/2019 11:00 am - Bhavana Ragland NP at Infusion Center Functional Status Description No Information Available Mental Status Description No Information Available Referrals Description No Information Available
--- OUTSIDE RECORDS SUMMARY | 2019-01-30 08:04 | XMS REPORT | Continuity of Care Document ---
:1960 External Reference #:[id number] Author Name Wilma Goodrich DO Address [address] [place] [address] Care Team Providers Name Role Phone Danna Capps MD - Internal Medicine Care Team Information Record Systems Analyst Jose Newton M.D. - Radiation Care Team Information Record Systems Analyst Oncology Problems Active Problems Provider Date Encounter for antineoplastic chemotherapy Wilma Goodrich DO Onset: 2018 Vitamin D deficiency Wilma Goodrich DO Onset: [...] Docu Soft 1 capsule by mouth 60caps Boufal, 10/11/2018 100mg twice a day as Wilma, DO Capsules needed for constipation Senokot take 1-2 tablets by 60tabs Boufal, 10/11/2018 8.6mg Tablets mouth twice daily Wilma, DO as needed for constipation Emla apply 20 min prior 75gm Boufal, 08/29/2018 2.5-2.5% Cream to port access Wilma, DO Decadron 1 tabl by mouth 6tabs Bokelseyal, 08/28/2018 4mg Tablets twice a day start Wilma, DO day before chmo Pantoprazole Sodium 1 tabl by mouth 90tabs Boufal, 08/28/2018 every day Wilma, DO 40mg Tablets DR Ondansetron take one tablet by 30tabs Boufal, 08/28/2018 8mg Tablets mouth every 8 hours Wilma, DO Dispers as needed for nausea Folic Acid 1 tabl by mouth 30tabs Boufal, 08/19/2018 1mg Tablets every day Wilma, DO Celexa 1 by mouth every Unknown 20mg Tablets day Meloxicam 1 tablet daily Unknown 15mg Tablets Symbicort 2 puffs PO bid [place], 80-4.5mcg/Act Gala Garcia Aerosol Bupropion Rom, Hydrochloride ER (XL) Gypsy BRIGHT 300mg Tablets ER 24HR History Medications Ergocalciferol 1 cap by mouth 6caps Wilma Goodrich, 08/18/2018 - [id number] every week DO 01/03/2019 Capsules Medications Administered in Office Medication SIG Qnty Indications Ordering Provider Date Vitamin B12 Injection 1000 Crystal Wilma, DO 08/17/2018 mcg/Ml Injection Immunizations Description No Information Available Vital Signs Date Vital Result Comment 01/25/2019 3:42pm BP Systolic 160 mmHg BP Diastolic 90 mmHg Body Temperature 98.1 F Heart Rate 78 /min Respiratory Rate 18 /min Weight 221.12 lb O2 % BldC Oximetry 97 % Pain Level 0 01/24/2019 10:20am BP Systolic 142 mmHg Ra BP Diastolic 85 mmHg Ra Body Temperature 97.3 F Heart Rate 92 /min Respiratory Rate 16 /min Height 61.25 inches 5'1.25" Weight 219.12 lb BMI (Body Mass Index) 41.1 kg/m2 BSA (Body Surface Area) 1.97 m2 [place] body weight in kilograms 48 kg O2 % BldC Oximetry 96 % Pain Level 0 Results Test Date Facility Test Result H/L Range Note CBC 01/23/2019 [facility] White Blood 4.2 K/uL Normal 3.1-10.7 1 W/Automated [address] [place] [address] [phone] Red Blood Count 3.61 M/uL Low 3.90-5.40 Hemoglobin 12.4 gm/dL Normal 11.6-15.8 Hematocrit 36.3 % Normal 36.0-46.1 Mean Cell Volume 100.6 fl High 80.9-99.0 Mean Corpuscular HGB 34.3 pg High 25.9-32.7 Mean Corpuscular HGB Conc 34.2 g/dL Normal 30.8-34.3 Platelet Count 175 K/uL Normal 155-360 Red Cell Distri Width SD 56.3 fl High 36-47 Red Cell Distri Width %CV 15.2 % High 11.7-14.4 Mean Platelet Volume 9.6 fl Normal 8.9-12.4 Neut% 88.0 % High 40.4-72.8 Lymph % 8.2 % Low 20.0-42.0 [place] % 2.9 % Low 4.3-13.2 Eo% 0.0 % Normal 0.0-6.6 Bas% 0.2 % Normal 0.0-1.1 Immature Grans 0.7 % Normal 0.0-5.0 NRBC % 0.0 /100WBC < 10/ 100 WBC Neut# 3.67 K/uL Normal 1.8-7.0 Lymph # 0.34 K/uL Low 1.0-4.0 [place] # 0.12 K/uL Low 0.3-0.9 Eos # 0.00 K/uL Normal 0.0-0.5 Baso # 0.01 K/uL Normal 0.0-0.1 Immature Grans Absolute 0.03 K/uL NRBC # 0.00 K/uL Comprehensive Metabolic 01/23/2019 [facility] Glucose 139 mg/dL High 74-[address] [place], [place] [id number] [phone] BUN 18 mg/dL Normal 7-18 Creatinine 1.0 mg/dL Normal 0.6-1.3 Glom Filtration Rate, Estimate >60 mL/min >60 If >60 mL/min >60 2 BUN/Creat 18.0 ratio Sodium 140 mmol/L Normal 136-145 Potassium 4.2 mmol/L Normal 3.5-5.1 Chloride 108 mmol/L High 98-107 Carbon Dioxide 25 mmol/L Normal 21-32 Anion Gap 7 mEq/L Low 8-16 Calcium 9.3 mg/dL Normal 8.5-10.1 Total Protein 7.3 g/dL Normal 6.4-8.2 Albumin 3.5 g/dL Normal 3.4-5.0 Globulin 3.8 g/dL Normal 1.9-4.3 Alb/Glob 0.9 ratio Bilirubin,Total 0.3 mg/dL Normal 0.2-1.0 Sgot/Ast 34 U/L Normal 15-37 SGPT/Alt 42 U/L Normal 12-78 Alkaline Phosphatase 131 U/L High 45-117 Laboratory test 01/23/2019 [facility] Magnesium 1.8 mg/dL Normal 1.8-2.[address] [place], [place] [id number] [phone] CBC W/Automated 01/02/2019 [facility] White Blood 4.5 K/uL Normal 3.1-10.[address] Count [place], [place] [id number] [phone] Red Blood Count 3.68 M/uL Low 3.90-5.40 [...] 40.4-72.8 Lymph % 7.2 % Low 20.0-42.0 [place] % 2.5 % Low 4.3-13.2 Eo% 0.0 % Normal 0.0-6.6 Bas% 0.2 % Normal 0.0-1.1 Immature Grans 0.7 % Normal 0.0-5.0 NRBC % 0.0 /100WBC < 10/ 100 WBC Neut# 3.98 K/uL Normal 1.8-7.0 Lymph # 0.32 K/uL Low 1.0-4.0 [place] # 0.11 K/uL Low 0.3-0.9 Eos # 0.00 K/uL Normal 0.0-0.5 Baso # 0.01 K/uL Normal 0.0-0.1 Immature Grans Absolute 0.03 K/uL NRBC # 0.00 K/uL Comprehensive Metabolic 01/02/2019 [facility] Glucose 201 mg/dL High 74-106 Panel [address] [place] [address] [phone] BUN 21 mg/dL High 7-18 Creatinine 1.0 mg/dL Normal 0.6-1.3 Glom Filtration Rate, Estimate >60 mL/min >60 If >60 mL/min >60 3 BUN/Creat 21.0 ratio Sodium 136 mmol/L Normal [...] 146 U/L High 45-117 Laboratory test 01/02/2019 [facility] Magnesium 2.0 mg/dL Normal 1.8-2.4 finding [address] [place] [address] [phone] CBC W/Automated 12/27/2018 [facility] White Blood 4.2 K/uL Normal 3.1-10.7 [address] [place] [address] [phone] Red Blood Count 3.33 M/uL Low 3.90-5.40 [...] 40.4-72.8 Lymph % 13.4 % Low 20.0-42.0 [place] % 17.9 % High 4.3-13.2 Eo% 1.2 % Normal 0.0-6.6 Bas% 0.2 % Normal 0.0-1.1 Immature Grans 0.5 % Normal 0.0-5.0 NRBC % 0.0 /100WBC < 10/ 100 WBC Neut# 2.79 K/uL Normal 1.8-7.0 Lymph # 0.56 K/uL Low 1.0-4.0 [place] # 0.75 K/uL Normal 0.3-0.9 Eos # 0.05 K/uL Normal 0.0-0.5 Baso # 0.01 K/uL Normal 0.0-0.1 Immature Grans Absolute 0.02 K/uL NRBC # 0.00 K/uL Differential-WBC Confirm 12/19/2018 [facility] Total Cells 100 #CELLS [address] [place] [address] [phone] Neutrophils% 65 % Normal 33-73 Lymph% 20 % Normal 20-42 Monocyte% 11 % High 0-10 Eosinophil% 1 % Normal 0-5 Basophil% 3 % High 0-2 Platelet Estimate NORMAL RBC Morphology NORMAL Laboratory test 12/19/2018 [facility] Path Review: <pending> finding [address] [place] [address] [phone] Slide Review 12/19/2018 [facility] Slide Review DIFF ORDERED [address] [place] [address] [phone] Laboratory test 12/19/2018 [facility] Vitamin 24.5 ng/mL Low 30.0- 5 finding [address],25-Hydroxy 100.0 [place] [address] [phone] Vitamin B12 And 12/19/2018 [facility] Vitamin B12 1343 pg/mL High 193-9 Folate [address] [place], [place] [id number] [phone] Folic Acid > 20.0 ng/mL High 3.1-17.5 Laboratory test 12/19/2018 [facility] Ferritin 618 ng/mL High 8-252 finding [address] [place] [address] [phone] Iron-Tibc-%Sat 12/19/2018 [facility] Serum Iron 264 g/dL High 50-170 [address] [place] [address] [phone] Total Iron Binding Capacity 332 g/dL Normal 250-450 Transferrin %Saturation 80 % High 12-57 Laboratory test 12/19/2018 [facility] Magnesium 2.1 mg/dL Normal 1.8-2.4 finding [address] [place] [address] [phone] Comprehensive 12/19/2018 [facility] Glucose 106 mg/dL Normal 74-106 Metabolic Panel [address] [place] [address] [phone] BUN 17 mg/dL Normal 7-18 Creatinine 0.9 mg/dL Normal 0.6-1.3 Glom Filtration Rate, Estimate >60 mL/min >60 If >60 mL/min >60 6 BUN/Creat 18.8 ratio Sodium 140 mmol/L Normal [...] 125 U/L High 45-117 CBC W/Automated 12/19/2018 [facility] White Blood 2.6 K/uL Low 3.1-10.[address] [place] [address] [phone] Red Blood Count 3.56 M/uL Low 3.90-5.40 [...] 40.4-72.8 Lymph % 22.0 % Normal 20.0-42.0 [place] % 14.5 % High 4.3-13.2 Eo% 1.6 % Normal 0.0-6.6 Bas% 0.8 % Normal 0.0-1.1 Immature Grans 0.4 % Normal 0.0-5.0 NRBC % 0.0 /100WBC < 10/ 100 WBC Neut# 1.55 K/uL Low 1.8-7.0 Lymph # 0.56 K/uL Low 1.0-4.0 [place] # 0.37 K/uL Normal 0.3-0.9 Eos # 0.04 K/uL Normal 0.0-0.5 Baso # 0.02 K/uL Normal 0.0-0.1 Immature Grans Absolute 0.01 K/uL NRBC # 0.00 K/uL Differential-WBC Confirm 12/13/2018 [facility] Total Cells 100 #CELLS [address] [place] [address] [phone] Neutrophils% 92 % High 33-73 Lymph% 7 % Low 20-42 Monocyte% 1 % Normal 0-10 Platelet Estimate NORMAL Polychromasia 0-1+ Anisocytosis 0-1+ Macrocytosis 0-1+ Laboratory test 12/13/2018 [facility] Magnesium 2.1 mg/dL Normal 1.8-2.4 8 finding [address] [place] [address] [phone] Slide Review DIFF ORDERED 9 Comprehensive Metabolic 12/13/2018 [facility] Glucose 200 mg/dL High 74-106 Panel [address] [place] [address] [phone] BUN 17 mg/dL Normal 7-18 Creatinine 0.8 mg/dL Normal 0.6-1.3 Glom Filtration Rate, Estimate >60 mL/min >60 If >60 mL/min >60 10 BUN/Creat 21.2 ratio Sodium 139 mmol/L Normal [...] 139 U/L High 45-117 CBC W/Automated 12/13/2018 [facility] White Blood 6.6 K/uL Normal 3.1-10.7 Diff [address] [place] [address] [phone] Red Blood Count 3.71 M/uL Low 3.90-5.40 [...] 40.4-72.8 Lymph % 5.9 % Low 20.0-42.0 [place] % 3.6 % Low 4.3-13.2 Eo% 1.5 % Normal 0.0-6.6 Bas% 0.2 % Normal 0.0-1.1 Immature Grans 0.5 % Normal 0.0-5.0 NRBC % 0.0 /100WBC < 10/ 100 WBC Neut# 5.84 K/uL Normal 1.8-7.0 Lymph # 0.39 K/uL Low 1.0-4.0 [place] # 0.24 K/uL Low 0.3-0.9 Eos # 0.10 K/uL Normal 0.0-0.5 Baso # 0.01 K/uL Normal 0.0-0.1 Immature Grans Absolute 0.03 K/uL NRBC # 0.00 K/uL CBC W/Automated 12/06/2018 [facility] White 4.6 K/uL Normal 3.1-10.7 11 Diff [address] [facility] [place] [address] Count [phone] Red Blood Count 3.55 M/uL Low 3.90-5.40 [...] 40.4-72.8 Lymph % 13.1 % Low 20.0-42.0 [place] % 18.7 % High 4.3-13.2 Eo% 0.7 % Normal 0.0-6.6 Bas% 0.2 % Normal 0.0-1.1 Immature Grans 0.4 % Normal 0.0-5.0 NRBC % 0.0 /100WBC < 10/ 100 WBC Neut# 3.07 K/uL Normal 1.8-7.0 Lymph # 0.60 K/uL Low 1.0-4.0 [place] # 0.86 K/uL Normal 0.3-0.9 Eos # 0.03 K/uL Normal 0.0-0.5 Baso # 0.01 K/uL Normal 0.0-0.1 Immature Grans Absolute 0.02 K/uL NRBC # 0.00 K/uL Comprehensive Metabolic 12/06/2018 [facility] Glucose 120 mg/dL High 74-106 Panel [address] [place] [address] [phone] BUN 21 mg/dL High 7-18 Creatinine 1.0 mg/dL Normal 0.6-1.3 Glom Filtration Rate, Estimate >60 mL/min >60 If >60 mL/min >60 12 BUN/Creat 21.0 ratio Sodium 141 mmol/L Normal [...] 138 U/L High 45-117 Laboratory test 12/06/2018 [facility] Magnesium 2.3 mg/dL Normal 1.8-2.4 13 finding [address] [place] [address] [phone] CBC W/Automated 11/27/2018 [facility] White Blood 4.0 K/uL Normal 3.1-10.7 [address] Count [place], [place] [id number] [phone] Red Blood Count 3.96 M/uL Normal 3.90-5.40 [...] 40.4-72.8 Lymph % 12.3 % Low 20.0-42.0 [place] % 6.0 % Normal 4.3-13.2 Eo% 1.3 % Normal 0.0-6.6 Bas% 0.8 % Normal 0.0-1.1 Immature Grans 0.5 % Normal 0.0-5.0 NRBC % 0.0 /100WBC < 10/ 100 WBC Neut# 3.17 K/uL Normal 1.8-7.0 Lymph # 0.49 K/uL Low 1.0-4.0 [place] # 0.24 K/uL Low 0.3-0.9 Eos # 0.05 K/uL Normal 0.0-0.5 Baso # 0.03 K/uL Normal 0.0-0.1 Immature Grans Absolute 0.02 K/uL NRBC # 0.00 K/uL Comprehensive 11/27/2018 [facility] Glucose 78 mg/dL Normal 74-106 Metabolic Panel [address] [place], [place] [id number] [phone] BUN 21 mg/dL High 7-18 Creatinine 0.9 mg/dL Normal 0.6-1.3 Glom Filtration Rate, Estimate >60 mL/min >60 If >60 mL/min >60 15 BUN/Creat 23.3 ratio Sodium 139 mmol/L Normal [...] 145 U/L High 45-117 Laboratory test 11/27/2018 [facility] Magnesium 2.4 Normal 1.8-2.4 [address] mg/[place] [address] [phone] Slide Review 11/21/2018 [facility] Slide Review (SEE 17, [address] NOTE) 18 [place] [address] [phone] Laboratory test 11/21/2018 [facility] Magnesium 2.3 Normal 1.8-2.[address] mg/[place] [address] [phone] Comprehensive 11/21/2018 [facility] Glucose 209 High 74-106 Metabolic Panel [address] mg/[place] [address] [phone] BUN 17 mg/dL Normal 7-18 Creatinine 1.0 mg/dL Normal 0.6-1.3 Glom Filtration Rate, Estimate >60 mL/min >60 If >60 mL/min >60 19 BUN/Creat 17.0 ratio Sodium 139 mmol/L Normal [...] 153 U/L High 45-117 CBC W/Automated 11/21/2018 [facility] White Blood 4.3 K/uL Normal 3.1-10.[address] Count [place], [place] [address] [phone] Red Blood Count 3.63 M/uL Low 3.90-5.40 [...] 40.4-72.8 Lymph % 9.6 % Low 20.0-42.0 [place] % 6.1 % Normal 4.3-13.2 Eo% 0.0 % Normal 0.0-6.6 Bas% 0.2 % Normal 0.0-1.1 Immature Grans 1.2 % Normal 0.0-5.0 NRBC % 0.0 /100WBC < 10/ 100 WBC Neut# 3.56 K/uL Normal 1.8-7.0 Lymph # 0.41 K/uL Low 1.0-4.0 [place] # 0.26 K/uL Low 0.3-0.9 Eos # 0.00 K/uL Normal 0.0-0.5 Baso # 0.01 K/uL Normal 0.0-0.1 Immature Grans Absolute 0.05 K/uL NRBC # 0.00 K/uL CBC W/Automated 10/31/2018 [facility] White 4.2 K/uL Normal 3.1-10.7 [address] [place] [address] Count [phone] Red Blood Count 3.93 M/uL Normal 3.90-5.40 [...] 40.4-72.8 Lymph % 10.3 % Low 20.0-42.0 [place] % 7.9 % Normal 4.3-13.2 Eo% 0.0 % Normal 0.0-6.6 Bas% 0.2 % Normal 0.0-1.1 Immature Grans 1.0 % Normal 0.0-5.0 NRBC % 0.0 /100WBC < 10/ 100 WBC Neut# 3.38 K/uL Normal 1.8-7.0 Lymph # 0.43 K/uL Low 1.0-4.0 [place] # 0.33 K/uL Normal 0.3-0.9 Eos # 0.00 K/uL Normal 0.0-0.5 Baso # 0.01 K/uL Normal 0.0-0.1 Immature Grans Absolute 0.04 K/uL NRBC # 0.00 K/uL Comprehensive Metabolic 10/31/2018 [facility] Glucose 112 mg/dL High 74-106 Panel [address] [place] [address] [phone] BUN 15 mg/dL Normal 7-18 Creatinine 0.9 mg/dL Normal 0.6-1.3 Glom Filtration Rate, Estimate >60 mL/min >60 If >60 mL/min >60 21 BUN/Creat 16.6 ratio Sodium 136 mmol/L Normal [...] 10/31/2018 [facility] Magnesium 2.3 mg/dL Normal 1.8-2.4 [address] [place] [address] [phone] CBC W/Automated 10/10/2018 [facility] White Blood 2.9 K/uL Low 3.1-10.[address] [place] [address] [phone] Red Blood Count 3.91 M/uL Normal 3.90-5.40 [...] 40.4-72.8 Lymph % 5.6 % Low 20.0-42.0 [place] % 4.2 % Low 4.3-13.2 Eo% 0.0 % Normal 0.0-6.6 Bas% 0.3 % Normal 0.0-1.1 Immature Grans 0.7 % Normal 0.0-5.0 NRBC % 0.0 /100WBC < 10/ 100 WBC Neut# 2.56 K/uL Normal 1.8-7.0 Lymph # 0.16 K/uL Low 1.0-4.0 [place] # 0.12 K/uL Low 0.3-0.9 Eos # 0.00 K/uL Normal 0.0-0.5 Baso # 0.01 K/uL Normal 0.0-0.1 Immature Grans Absolute 0.02 K/uL NRBC # 0.00 K/uL Comprehensive Metabolic 10/10/2018 [facility] Glucose 259 mg/dL High 74-106 Panel [address] [place] [address] [phone] BUN 12 mg/dL Normal 7-18 Creatinine 0.9 mg/dL Normal 0.6-1.3 Glom Filtration Rate, Estimate >60 mL/min >60 If >60 mL/min >60 23 BUN/Creat 13.3 ratio Sodium 136 mmol/L Normal [...] 132 U/L High 45-117 Laboratory test 10/10/2018 [facility] Magnesium 2.2 mg/dL Normal 1.8-2.4 finding [address] [place] [address] [phone] Slide Review 10/10/2018 [facility] Slide Review DIFF [address] [place] [address] [phone] Laboratory test 10/10/2018 [facility] Path Review: <pending> finding [address] [place] [address] [phone] Differential-WB 10/10/2018 [facility] Total Cells 100 #CELLS C Confirm [address] Counted [place], [place] [id number] [phone] Neutrophils% 91 % High 33-73 Lymph% 4 % Low 20-42 Monocyte% 3 % Normal 0-10 Eosinophil% 1 % Normal 0-5 Basophil% 1 % Normal 0-2 Platelet Estimate NORMAL Polychromasia 0-1+ Anisocytosis 0-1+ Differential Comment LARGE PLATELETS <SEE NOTE> 24 CBC W/Automated 09/19/2018 [facility] White Blood 4.5 K/uL Normal 3.1-10.[address] [place] [address] [phone] Red Blood Count 4.19 M/uL Normal 3.90-5.40 [...] 40.4-72.8 Lymph % 8.0 % Low 20.0-42.0 [place] % 4.5 % Normal 4.3-13.2 Eo% 0.0 % Normal 0.0-6.6 Bas% 0.4 % Normal 0.0-1.1 Immature Grans 1.3 % Normal 0.0-5.0 NRBC % 0.0 /100WBC < 10/ 100 WBC Neut# 3.85 K/uL Normal 1.8-7.0 Lymph # 0.36 K/uL Low 1.0-4.0 [place] # 0.20 K/uL Low 0.3-0.9 Eos # 0.00 K/uL Normal 0.0-0.5 Baso # 0.02 K/uL Normal 0.0-0.1 Immature Grans Absolute 0.06 K/uL NRBC # 0.00 K/uL Comprehensive Metabolic 09/19/2018 [facility] Glucose 191 mg/dL High 74-106 Panel [address] [place] [address] [phone] BUN 11 mg/dL Normal 7-18 Creatinine 0.9 mg/dL 0.6-1.3 Glom Filtration Rate, Estimate >60 mL/min >60 If >60 mL/min >60 25 BUN/Creat 12.2 ratio Sodium 135 mmol/L Low [...] 116 U/L Normal 45-117 Laboratory test 09/19/2018 [facility] Magnesium 2.2 mg/dL Normal 1.8-2.4 finding [address] [place] [address] [phone] CBC W/Automated 09/13/2018 [facility] White Blood 3.5 K/uL Normal 3.1-10.7 Diff [address] [place] [address] [phone] Red Blood Count 3.74 M/uL Low 3.90-5.40 [...] 40.4-72.8 Lymph % 18.7 % Low 20.0-42.0 [place] % 12.1 % Normal 4.3-13.2 Eo% 1.2 % Normal 0.0-6.6 Bas% 0.3 % Normal 0.0-1.1 Immature Grans 0.3 % Normal 0.0-5.0 NRBC % 0.0 /100WBC < 10/ 100 WBC Neut# 2.34 K/uL Normal 1.8-7.0 Lymph # 0.65 K/uL Low 1.0-4.0 [place] # 0.42 K/uL Normal 0.3-0.9 Eos # 0.04 K/uL Normal 0.0-0.5 Baso # 0.01 K/uL Normal 0.0-0.1 Immature Grans Absolute 0.01 K/uL NRBC # 0.00 K/uL CBC W/Automated 09/06/2018 [facility] White 4.1 K/uL Normal 3.1-10.7 26 Diff [address] [facility] [place] [address] Count [phone] Red Blood Count 3.76 M/uL Low 3.90-5.40 [...] 40.4-72.8 Lymph % 17.4 % Low 20.0-42.0 [place] % 12.0 % Normal 4.3-13.2 Eo% 1.2 % Normal 0.0-6.6 Bas% 0.5 % Normal 0.0-1.1 Immature Grans 1.2 % Normal 0.0-5.0 NRBC % 0.0 /100WBC < 10/ 100 WBC Neut# 2.77 K/uL Normal 1.8-7.0 Lymph # 0.71 K/uL Low 1.0-4.0 [place] # 0.49 K/uL Normal 0.3-0.9 Eos # 0.05 K/uL Normal 0.0-0.5 Baso # 0.02 K/uL Normal 0.0-0.1 Immature Grans Absolute 0.05 K/uL NRBC # 0.00 K/uL Comprehensive 09/06/2018 [facility] Glucose 84 mg/dL Normal 74-106 Metabolic Panel [address] [place] [address] [phone] BUN 9 mg/dL Normal 7-18 Creatinine 0.7 mg/dL Normal 0.6-1.3 Glom Filtration Rate, Estimate >60 mL/min >60 If >60 mL/min >60 27 BUN/Creat 12.8 ratio Sodium 133 mmol/L Low [...] 96 U/L Normal 45-117 Laboratory test 09/06/2018 [facility] Magnesium 2.5 mg/dL High 1.8-2.4 finding [address] [place] [address] [phone] Vitamin B12 And 08/29/2018 [facility] Vitamin B12 719 pg/mL Normal 193-986 28 Folate [address] [place] [address] [phone] Folic Acid > 20.0 ng/mL High 3.1-17.5 Laboratory 08/29/2018 [facility] Vitamin 24.1 Low 30.0-100.0 29 test finding [address] D,25-Hydroxy ng/[place] [address] [phone] CBC 08/29/2018 [facility] White Blood 9.3 K/uL Normal 3.1-10.7 W/Automated [address] [place] [place] [address] [phone] Red Blood Count 4.07 M/uL Normal 3.90-5.40 [...] 40.4-72.8 Lymph % 21.8 % Normal 20.0-42.0 [place] % 8.4 % Normal 4.3-13.2 Eo% 2.3 % Normal 0.0-6.6 Bas% 0.9 % Normal 0.0-1.1 Immature Grans 0.6 % Normal 0.0-5.0 NRBC % 0.0 /100WBC < 10/ 100 WBC Neut# 6.13 K/uL Normal 1.8-7.0 Lymph # 2.02 K/uL Normal 1.0-4.0 [place] # 0.78 K/uL Normal 0.3-0.9 Eos # 0.21 K/uL Normal 0.0-0.5 Baso # 0.08 K/uL Normal 0.0-0.1 Immature Grans Absolute 0.06 K/uL NRBC # 0.00 K/uL Comprehensive Metabolic 08/29/2018 [facility] Glucose 163 mg/dL High 74-[address] [place], [place] [address] [phone] BUN 17 mg/dL Normal 7-18 Creatinine 0.9 mg/dL Normal 0.6-1.3 Glom Filtration Rate, Estimate >60 mL/min >60 If >60 mL/min >60 30 BUN/Creat 18.8 ratio Sodium 135 mmol/L Low [...] Phosphatase 91 U/L Normal 45-117 Iron-Tibc-%Sat 08/29/2018 [facility] Serum Iron 26 g/dL Low 50-170 [address] [place], [place] [id number] [phone] Total Iron Binding Capacity 231 g/dL Low 250-450 Transferrin %Saturation 11 % Low 12-57 Laboratory test 08/29/2018 [facility] Ferritin 228 ng/mL Normal 8-252 finding [address] [place] [address] [phone] Vitamin B12 And 08/17/2018 [facility] Vitamin B12 515 pg/mL Normal 193-986 Folate [address] [place], [place] [address] [phone] Folic Acid 9.7 ng/mL Normal 3.1-17.5 Laboratory 08/17/2018 [facility] Vitamin 15.5 Low 30.0-100.0 31 test finding [address] [facility] D,25-Hydroxy ng/[place] [address] [phone] CBC 08/17/2018 [facility] White Blood 9.1 K/uL Normal 3.1-10.7 W/Automated [address] [place] [address] [phone] Red Blood Count 4.33 M/uL Normal 3.90-5.40 [...] 40.4-72.8 Lymph % 23.4 % Normal 20.0-42.0 [place] % 7.1 % Normal 4.3-13.2 Eo% 1.5 % Normal 0.0-6.6 Bas% 0.7 % Normal 0.0-1.1 Immature Grans 0.4 % Normal 0.0-5.0 NRBC % 0.0 /100WBC < 10/ 100 WBC Neut# 6.06 K/uL Normal 1.8-7.0 Lymph # 2.12 K/uL Normal 1.0-4.0 [place] # 0.64 K/uL Normal 0.3-0.9 Eos # [...] information may be found at [email or web address]. 3 Note: Persistent reduction for 3 months or more in an eGFR <60 mL/min/1.73 m2 defines CKD. Patients with eGFR values >/=60 mL/min/1.73 m2 may also have CKD if evidence of persistent proteinuria is present. The original MDRD equation for estimated GFR is not valid for patients less than 18 years of age. Additional information may be found at [email or web address]. 4 C34.31 C78.7 D64.81 5 Vitamin D deficiency has been defined by the [place] [employer] and an Endocrine Society practice guideline as a level of serum 25-OH vitamin D less than 20 ng/mL (1,2). The Endocrine Society went on to further define vitamin D insufficiency as a level between 21 and 29 ng/mL (2). 1. IOM ([place] [employer]). 2010. Dietary reference intakes for calcium and D. [place]: The National Academies Press. 2. Kip MF, Shawn NC, Sultana PEARL, et al. Evaluation, treatment, and prevention of vitamin D deficiency: an Endocrine Society clinical practice guideline. JCEM. 2010; 96(7):1911-30. Performed at: RN - [facility] [address] [id number] Supervisor Finishing: Carlee Ramos MD, Phone: [phone] 6 Note: Persistent reduction for 3 months or more in an eGFR <60 mL/min/1.73 m2 defines CKD. Patients with eGFR values >/=60 mL/min/1.73 m2 may also have CKD if evidence of persistent proteinuria is present. The original MDRD equation for estimated GFR is not valid for patients less than 18 years of age. Additional information may be found at [email or web address]. 7 C34.31 C78.7 Z51.11 E86.[address] GOODRICH [address] GOODRICH 10 Note: Persistent reduction for 3 months or more in an eGFR <60 mL/min/1.73 m2 defines CKD. Patients with eGFR values >/=60 mL/min/1.73 m2 may also have CKD if evidence of persistent proteinuria is present. The original MDRD equation for estimated GFR is not valid for patients less than 18 years of age. Additional information may be found at [email or web address]. 11 C34.31 C78.7 D64.81 E86.0 12 Note: Persistent reduction for 3 months or more in an eGFR <60 mL/min/1.73 m2 defines CKD. Patients with eGFR values >/=60 mL/min/1.73 m2 may also have CKD if evidence of persistent proteinuria is present. The original MDRD equation for estimated GFR is not valid for patients less than 18 years of age. Additional information may be found at [email or web address]. 13 STAT 14 Z51.11 C34.31 C78.7 E86.0 E56.9 E55.9 D64.81 15 Note: Persistent reduction for 3 months or more in an eGFR <60 mL/min/1.73 m2 defines CKD. Patients with eGFR values >/=60 mL/min/1.73 m2 may also have CKD if evidence of persistent proteinuria is present. The original MDRD equation for estimated GFR is not valid for patients less than 18 years of age. Additional information may be found at [email or web address]. 16 STAT [employer] PORT DRAW 17 Z51.11 C34.31 C78.7 18 Instrument flagged sample for slide review. Less than 10% Bands seen, no other immature WBC's seen. RBC morphology essentially normal. Platelet estimate = NORMAL 19 Note: Persistent reduction for 3 months or more in an eGFR <60 mL/min/1.73 m2 defines CKD. Patients with eGFR values >/=60 mL/min/1.73 m2 may also have CKD if evidence of persistent proteinuria is present. The original MDRD equation for estimated GFR is not valid for patients less than 18 years of age. Additional information may be found at [email or web address]. 20 C34.31 21 Note: Persistent reduction for 3 months or more in an eGFR <60 mL/min/1.73 m2 defines CKD. Patients with eGFR values >/=60 mL/min/1.73 m2 may also have CKD if evidence of persistent proteinuria is present. The original MDRD equation for estimated GFR is not valid for patients less than 18 years of age. Additional information may be found at [email or web address]. [address] GOODRICH 23 Note: Persistent reduction for 3 months or more in an eGFR <60 mL/min/1.73 m2 defines CKD. Patients with eGFR values >/=60 mL/min/1.73 m2 may also have CKD if evidence of persistent proteinuria is present. The original MDRD equation for estimated GFR is not valid for patients less than 18 years of age. Additional information may be found at [email or web address]. 24 LARGE PLATELETS PRESENT. 25 Note: Persistent reduction for 3 months or more in an eGFR <60 mL/min/1.73 m2 defines CKD. Patients with eGFR values >/=60 mL/min/1.73 m2 may also have CKD if evidence of persistent proteinuria is present. The original MDRD equation for estimated GFR is not valid for patients less than 18 years of age. Additional information may be found at [email or web address]. 26 C34.31 E86.0 27 Note: Persistent reduction for 3 months or more in an eGFR <60 mL/min/1.73 m2 defines CKD. Patients with eGFR values >/=60 mL/min/1.73 m2 may also have CKD if evidence of persistent proteinuria is present. The original MDRD equation for estimated GFR is not valid for patients less than 18 years of age. Additional information may be found at [email or web address]. 28 E56.9 29 Vitamin D deficiency has been defined by the [place] [employer] and an Endocrine Society practice guideline as a level of serum 25-OH vitamin D less than 20 ng/mL (1,2). The Endocrine Society went on to further define vitamin D insufficiency as a level between 21 and 29 ng/mL (2). 1. IOM ([place] [employer]). 2010. Dietary reference intakes for calcium and D. [place]: The National Academies Press. 2. Kip MF, Shawn NC, Sultana PEARL, et al. Evaluation, treatment, and prevention of vitamin D deficiency: an Endocrine Society clinical practice guideline. JCEM. 2010; 96(7):1911-30. Performed at: RN - [facility] [address] [id number] Supervisor Finishing: Carlee Ramos MD, Phone: [phone] 30 Note: Persistent reduction for 3 months or more in an eGFR <60 mL/min/1.73 m2 defines CKD. Patients with eGFR values >/=60 mL/min/1.73 m2 may also have CKD if evidence of persistent proteinuria is present. The original MDRD equation for estimated GFR is not valid for patients less than 18 years of age. Additional information may be found at [email or web address]. 31 Vitamin D deficiency has been defined by the [place] [employer] and an Endocrine Society practice guideline as a level of serum 25-OH vitamin D less than 20 ng/mL (1,2). The Endocrine Society went on to further define vitamin D insufficiency as a level between 21 and 29 ng/mL (2). 1. IOM ([place] [employer]). 2010. Dietary reference intakes for calcium and D. [place]: The National Academies Press. 2. Kip MF, Shawn [place], Sultana PEARL, et al. Evaluation, treatment, and prevention of vitamin D deficiency: an Endocrine Society clinical practice guideline. JCEM. 2010; 96(9):1911-30. Performed at: RN - [facility] [address] [id number] Supervisor Finishing: Carlee Ramos MD, Phone: [phone] Procedures Date Code Description Status 08/29/2018 13219 Irrigation Implanted Venous Access Device For Drug System Completed 08/29/2018 91385 Collect Blood Specimen From Completely Implant Venous Completed Access Dev 08/17/2018 36175 Theraputic Or Diagnostic Injection Completed 08/15/2018 01394 Bronchospasm Provocation Evaluation Multi Spirometric Completed Determinati 08/15/2018 70411 Spirometry Completed Medical Devices Description No Information Available Encounters Type Date Location Provider Dx Diagnosis Office Visit 01/03/2019 Infusion Center Bhavana Ragland Z51.11 Encounter for 11:00a B., [employer]ER antineoplastic chemotherapy C34.31 Malignant neoplasm of lower lobe, right bronchus or lung 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 D64.81 Anemia due to antineoplastic chemotherapy Office Visit 12/13/2018 10:30a Oncology Office Boufal, C34.31 Malignant Wilma, DO neoplasm of lower lobe, right bronchus or lung Z51.11 Encounter for antineoplastic chemotherapy Office Visit 11/27/2018 9:15a Infusion Center Bhavana Ragland, E86.0 Dehydration [employer]ER C34.31 Malignant neoplasm of lower lobe, right bronchus or lung 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 Office Visit 11/22/2018 11:00a Infusion Center [place] Z51.11 Encounter for Bhavana Maurer, antineoplastic [employer]ER chemotherapy C34.31 Malignant neoplasm of lower lobe, right bronchus or lung 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 Office Visit 11/14/2018 Oncology Boufal, C34.31 Malignant neoplasm 8:30a Office Wilma, DO of lower lobe, right bronchus or lung Office Visit 11/01/2018 Infusion Bhavana Ragland Z51.11 Encounter for 11:00a Center BYaakov, MACHINE [employer]ER antineoplastic chemotherapy C34.31 Malignant neoplasm of lower lobe, right bronchus or lung 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 D64.81 Anemia due to antineoplastic chemotherapy Office Visit 10/11/2018 10:30a [facility] Z51.11 Encounter for Bhavana AyalaYaakov, antineoplastic [employer]ER chemotherapy C34.31 Malignant neoplasm of lower lobe, right bronchus or lung 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 D64.81 Anemia due to antineoplastic chemotherapy Office Visit 09/20/2018 10:30a [facility] [place] Z51.11 Encounter for Bhavana AyalaYaakov, antineoplastic [employer]ACHINE [employer]ER chemotherapy C34.31 Malignant neoplasm of lower lobe, right bronchus or lung 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 D64.81 Anemia due to antineoplastic chemotherapy Office Visit 09/06/2018 7:30a [facility] EllynBhavana, E86.0 Dehydration MACHINE STEAK T[employer]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 C34.31 Malignant neoplasm of lower lobe, right bronchus or lung 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 D64.81 Anemia due to antineoplastic chemotherapy Office Visit 08/30/2018 9:00a [facility] [place] Z51.11 Encounter for Bhavana AyalaYaakov, antineoplastic [employer]ER chemotherapy C34.31 Malignant neoplasm of lower lobe, [...] or lung Assessments Date Code Description Provider 01/25/2019 C34.31 Malignant neoplasm of lower lobe, right Boufal, Wilma, DO bronchus or lung 01/23/2019 C34.31 Malignant neoplasm of lower lobe, right Boufal, Wilma, DO bronchus or lung 01/23/2019 C34.31 Malignant neoplasm of lower lobe, right Oncology Nurse bronchus or lung 01/23/2019 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 Boufal, Wilma , DO intrahepatic bile duct 01/23/2019 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 Oncology Nurse intrahepatic bile duct 01/03/2019 Z51.11 Encounter for antineoplastic chemotherapy Bhavana Ragland, MACHINE STEAK T[employer]ER[employer]ER 01/03/2019 C34.31 Malignant neoplasm of lower lobe, right Bhavana Ragland , MACHINE [employer]ER[employer]ER bronchus or lung 01/03/2019 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 Bhavana Ragland, MACHINE STE[employer] T[employer]ER[employer]ER intrahepatic bile duct 01/03/2019 D64.81 Anemia due to antineoplastic chemotherapy Bhavana Ragland, MACHINE STE[employer] T[employer]ER[employer]ER 01/02/2019 C34.31 Malignant neoplasm of lower lobe, [...] 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 BokelseyalElenWilma , DO intrahepatic bile duct 12/19/2018 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 Oncology Nurse intrahepatic bile duct 12/19/2018 D64.81 Anemia due to antineoplastic chemotherapy BokelseyalElenWilma , DO 12/19/2018 D64.81 Anemia due to antineoplastic chemotherapy Oncology Nurse 12/13/2018 C34.31 Malignant neoplasm of lower lobe, right Boufal Wilma, DO bronchus or lung 12/13/2018 Z51.11 Encounter for antineoplastic chemotherapy BoufalElenWilma , DO 12/06/2018 C34.31 Malignant neoplasm of lower lobe, right Boufal, Wilma, DO bronchus or lung 12/06/2018 C34.31 Malignant neoplasm of lower lobe, right Oncology Nurse bronchus or lung 12/06/2018 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 BoufalElenWilma , DO intrahepatic bile duct 12/06/2018 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 Oncology Nurse intrahepatic bile duct 12/06/2018 D64.81 Anemia due to antineoplastic chemotherapy Elen Goodricharet , DO 12/06/2018 D64.81 Anemia due to antineoplastic chemotherapy Oncology Nurse 12/06/2018 E86.0 Dehydration Elen Goodricharet, DO 12/06/2018 E86.0 Dehydration Oncology Nurse 11/27/2018 E86.0 Dehydration Bhavana Ragland, MACHINE STE[employer]ER[employer]ER 11/27/2018 C34.31 Malignant neoplasm of lower lobe, right Bhavana Ragland. , MACHINE STEAK [employer]ER[employer]ER bronchus or lung 11/27/2018 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 Bhavana Ragland., MACHINE STEAK TENDER[employer]ER intrahepatic bile duct 11/22/2018 Z51.11 Encounter for antineoplastic chemotherapy Bhavana Ragland., MACHINE STEAK TENDER[employer]ER 11/22/2018 C34.31 Malignant neoplasm of lower lobe, right Bhavana Ragland. , MACHINE STEAK T[employer]ER[employer]ER bronchus or lung 11/22/2018 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 Bhavana Ragland B., MACHINE STEAK TENDER[employer]ER intrahepatic bile duct 11/21/2018 Z51.11 Encounter for antineoplastic chemotherapy BokelseyalElenWilma , DO 11/21/2018 Z51.11 Encounter for antineoplastic chemotherapy Oncology Nurse 11/21/2018 C34.31 Malignant neoplasm of lower lobe, right Boufal, Wilma, DO bronchus or lung 11/21/2018 C34.31 Malignant neoplasm of lower lobe, right Oncology Nurse bronchus or lung 11/21/2018 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 Boufal, Wilma , DO intrahepatic bile duct 11/21/2018 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 Oncology Nurse intrahepatic bile duct 11/14/2018 C34.31 Malignant neoplasm of lower lobe, right Boufal, Wilma, DO bronchus or lung 11/01/2018 Z51.11 Encounter for antineoplastic chemotherapy Bhavana Ragland, MACHINE STEAK T[employer]ER[employer]ER 11/01/2018 C34.31 Malignant neoplasm of lower lobe, right Bhavana Ragland. , MACHINE STEAK T[employer]ER[employer]ER bronchus or lung 11/01/2018 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 Bhavana Ragland., MACHINE STEAK TENDER[employer]ER intrahepatic bile 11/01/2018 D64.81 Anemia due to antineoplastic chemotherapy Bhavana Ragland, MACHINE STEAK T[employer]ER[employer]ER 10/31/2018 C34.31 Malignant neoplasm of lower lobe, right Boufal, Wilma, DO bronchus or lung 10/31/2018 C34.31 Malignant neoplasm of lower lobe, right Oncology Nurse bronchus or lung 10/11/2018 Z51.11 Encounter for antineoplastic chemotherapy Bhavana Ragland, MACHINE STEAK TENDERIZER 10/11/2018 C34.31 Malignant neoplasm of lower lobe, right Bhavana Ragland. , MACHINE STEAK TENDER[employer]ER bronchus or lung 10/11/2018 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 Bhavana Ragland, MACHINE STEAK TENDER[employer]ER intrahepatic bile 10/11/2018 D64.81 Anemia due to antineoplastic chemotherapy Bhavana Ragland, MACHINE STEAK TENDERIZER 10/10/2018 C34.31 Malignant neoplasm of lower lobe, right Boufal, Wilma, DO bronchus or lung 10/10/2018 C34.31 Malignant neoplasm of lower lobe, right Oncology Nurse bronchus or lung 10/02/2018 C34.31 Malignant neoplasm of lower lobe, right Boufal, Wilma, DO bronchus or lung 10/02/2018 C34.31 Malignant neoplasm of lower lobe, right Oncology Nurse bronchus or lung 09/20/2018 Z51.11 Encounter for antineoplastic chemotherapy Bhavana Ragland, MACHINE STEAK TENDERIZER 09/20/2018 C34.31 Malignant neoplasm of lower lobe, right VintonBhavana B. , MACHINE STEAK TENDERIZER bronchus or lung 09/20/2018 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 VintonBhavana myers B., MACHINE STEAK TENDER[employer]ER intrahepatic bile 09/20/2018 D64.81 Anemia due to antineoplastic chemotherapy Bhavana Ragland., MACHINE STEAK TENDER[employer]ER 09/19/2018 C34.31 Malignant neoplasm of lower lobe, right Boufal, Wilma, DO bronchus or lung 09/19/2018 C34.31 Malignant neoplasm of lower lobe, right Oncology Nurse bronchus or lung 09/13/2018 C34.31 Malignant neoplasm of lower lobe, right Boufal, Wilma, DO bronchus or lung 09/13/2018 C34.31 Malignant neoplasm of lower lobe, right Oncology Nurse bronchus or lung 09/06/2018 E86.0 Dehydration Bhavana Ragland., MACHINE STEAK T[employer]ER[employer]ER 09/06/2018 C34.31 Malignant neoplasm of lower lobe, right Bhavana Ragland. , MACHINE STEAK TENDER[employer]ER bronchus or lung 09/06/2018 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 [place], Bhavana B., MACHINE STEAK TENDER[employer]ER intrahepatic bile 09/06/2018 D64.81 Anemia due to antineoplastic chemotherapy Bhavana Ragland., MACHINE STEAK TENDER[employer]ER 08/30/2018 Z51.11 Encounter for antineoplastic chemotherapy Bhavana Ragland., MACHINE STEAK TENDERIZER 08/30/2018 C34.31 Malignant neoplasm of lower lobe, right Bhavana Ragland B. , MACHINE STEAK TENDER[employer]ER bronchus or lung 08/30/2018 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 Bhavana Ragland B., MACHINE STEAK TENDER[employer]ER intrahepatic bile 08/30/2018 R11.0 Nausea Bhavana Ragland B., MACHINE STEAK T[employer]ER[employer]ER 08/29/2018 E56.9 Vitamin deficiency, unspecified Boufal, Wilma, DO 08/29/2018 E56.9 Vitamin deficiency, unspecified Oncology Nurse 08/29/2018 C34.31 Malignant neoplasm of lower lobe, right Boufal, Wilma, DO bronchus or lung 08/28/2018 C34.31 Malignant neoplasm of lower lobe, right Boufal, Wilma, DO bronchus or lung 08/28/2018 E55.9 Vitamin D deficiency, unspecified Boufal, Wilma, DO 08/17/2018 C34.31 Malignant neoplasm of lower lobe, right Wilma Goodrich DO bronchus or lung 08/15/2018 C34.31 Malignant neoplasm of lower lobe, right Deven Francis MD bronchus or lung Plan of Treatment Future Appointment(s):02/01/2019 4:30 pm - Wilma Goodrich DO at Oncology Mmidoy2102/13/2019 1:00 pm - Oncology Nurse at Oncology [id number]/14/2019 10:30 am - Bhavana Ragland MACHINE STEAK TENDERIZER at Infusion Glmmdc4402/14/2019 10:30 am - Infusion Chair 2 at Infusion Center Functional Status Description No Information Available Mental Status Description No Information Available Referrals Description No Information Available
--- OUTSIDE RECORDS SUMMARY | 2019-01-30 08:04 | XMS REPORT | Continuity of Care Document ---
:1960 External Reference #:[id number] Author Name Wilma Goodrich DO (transmitted by agent of provider Mindi Rosales) Address [address] [place] [phone] Care Team Providers Name Role Phone Danna Capps MD - Internal Medicine Care Team Information Technical Buyer Jose Newton M.D. - Radiation Care Team Information Technical Buyer Oncology Problems Active Problems Provider Date Encounter [...] 08/29/2018 2.5-2.5% Cream to port access Wilma, Decadron 1 tabl by mouth 6tabs Crystal, 08/28/2018 4mg Tablets twice a day start Wilma, DO day before chmo Pantoprazole Sodium 1 tabl by mouth 90tabs Crystal, 08/28/2018 every day Wilma, DO 40mg Tablets Ondansetron take one tablet by 30tabs Crystal, 08/28/2018 8mg Tablets mouth every 8 hours Wilma DO Dispers as needed for nausea Folic Acid 1 tabl by mouth 30tabs Crystal, 08/19/2018 1mg Tablets every day Wilma, DO Celexa 1 by mouth every Unknown 20mg Tablets day Meloxicam 1 tablet daily Unknown 15mg Tablets Symbicort 2 puffs PO bid [place], 80-4.5mcg/Dara Garcia M.D. Aerosol Bupropion Rom, Hydrochloride ER (XL) Gypsy BRIGHT 300mg Tablets ER 24HR History Medications Ergocalciferol 1 cap by mouth 6caps Rishikelseyjuan jElenWilma, 08/18/2018 - [id number] every week DO 01/03/2019 Capsules Medications Administered in Office Medication SIG Qnty Indications Ordering Provider Date Vitamin B12 Injection 1000 RishiFede nuñezt, DO 08/17/2018 mcg/Ml Injection Immunizations Description No [...] 1 W/Automated [address] [place] [address] [phone] Red Blood Count 3.68 M/uL Low 3.90-5.40 [...] 40.4-72.8 Lymph % 7.2 % Low 20.0-42.0 [place] % 2.5 % Low 4.3-13.2 Eo% 0.0 % Normal 0.0-6.6 Bas% 0.2 % Normal 0.0-1.1 Immature Grans 0.7 % Normal 0.0-5.0 NRBC % 0.0 /100WBC < 10/ 100 WBC Neut# 3.98 K/uL Normal 1.8-7.0 Lymph # 0.32 K/uL Low 1.0-4.0 [place] # 0.11 K/uL Low 0.3-0.9 Eos # 0.00 K/uL Normal 0.0-0.5 Baso # 0.01 K/uL Normal 0.0-0.1 Immature Grans Absolute 0.03 K/uL NRBC # 0.00 K/uL Comprehensive Metabolic 01/02/2019 [facility] Glucose 201 mg/dL High 74-106 Panel [address] [place], [place] [phone] [phone] BUN 21 mg/dL High 7-18 Creatinine 1.0 [...] 146 U/L High 45-117 Laboratory test 01/02/2019 [facility] Magnesium 2.0 mg/dL Normal 1.8-2.[address] [place] [address] [phone] CBC W/Automated 12/27/2018 [facility] White Blood 4.2 K/uL Normal 3.1-10.[address] [place] [address] [phone] Red Blood Count 3.33 M/uL Low 3.90-5.40 [...] 40.4-72.8 Lymph % 13.4 % Low 20.0-42.0 [place] % 17.9 % High 4.3-13.2 Eo% 1.2 % Normal 0.0-6.6 Bas% 0.2 % Normal 0.0-1.1 Immature Grans 0.5 % Normal 0.0-5.0 NRBC % 0.0 /100WBC < 10/ 100 WBC Neut# 2.79 K/uL Normal 1.8-7.0 Lymph # 0.56 K/uL Low 1.0-4.0 [place] # 0.75 K/uL Normal 0.3-0.9 Eos # 0.05 K/uL Normal 0.0-0.5 Baso # 0.01 K/uL Normal 0.0-0.1 Immature Grans Absolute 0.02 K/uL NRBC # 0.00 K/uL Differential-WBC Confirm 12/19/2018 [facility] Total Cells 100 #CELLS [address] Counted [place], [place] [id number] [phone] Neutrophils% 65 % Normal 33-73 Lymph% 20 % Normal 20-42 Monocyte% 11 % High 0-10 Eosinophil% 1 % Normal 0-5 Basophil% 3 % High 0-2 Platelet Estimate NORMAL RBC Morphology NORMAL Laboratory test 12/19/2018 [facility] Path Review: <pending> finding [address] [place], [place] [id number] [phone] Slide Review 12/19/2018 [facility] Slide Review DIFF ORDERED [address] [place] [address] [phone] Laboratory test 12/19/2018 [facility] Vitamin 24.5 ng/mL Low 30.0- 4 finding [address] D,25-Hydroxy 100.0 [place] [address] [phone] Vitamin B12 And 12/19/2018 [facility] Vitamin B12 1343 pg/mL High 193-9 Folate [address] [place] [address] [phone] Folic Acid > 20.0 ng/mL High 3.1-17.5 Laboratory test 12/19/2018 [facility] Ferritin 618 ng/mL High 8-252 finding [address] [facility] [place] [address] [phone] Iron-Tibc-%Sat 12/19/2018 [facility] Serum Iron 264 g/dL High 50-170 [address] [place] [address] [phone] Total Iron Binding Capacity 332 g/dL Normal 250-450 Transferrin %Saturation 80 % High 12-57 Laboratory test 12/19/2018 [facility] Magnesium 2.1 mg/dL Normal 1.8-2.4 finding [address] [place] [address] [phone] [facility] 12/19/2018 [facility] Glucose 106 mg/dL Normal 74-106 Metabolic Panel [address] [place] [address] [phone] BUN 17 mg/dL Normal 7-18 Creatinine 0.9 [...] 125 U/L High 45-117 CBC W/Automated 12/19/2018 [facility] White Blood 2.6 K/uL Low 3.1-10.[address] Count [place], [place] [address] [phone] Red Blood Count 3.56 M/uL Low 3.90-5.40 [...] 40.4-72.8 Lymph % 22.0 % Normal 20.0-42.0 [place] % 14.5 % High 4.3-13.2 Eo% 1.6 % Normal 0.0-6.6 Bas% 0.8 % Normal 0.0-1.1 Immature Grans 0.4 % Normal 0.0-5.0 NRBC % 0.0 /100WBC < 10/ 100 WBC Neut# 1.55 K/uL Low 1.8-7.0 Lymph # 0.56 K/uL Low 1.0-4.0 [place] # 0.37 K/uL Normal 0.3-0.9 Eos # 0.04 K/uL Normal 0.0-0.5 Baso # 0.02 K/uL Normal 0.0-0.1 Immature Grans Absolute 0.01 K/uL NRBC # 0.00 K/uL Differential-WBC Confirm 12/13/2018 [facility] Total Cells 100 #CELLS [address] [place] [address] [phone] Neutrophils% 92 % High 33-73 Lymph% 7 % Low 20-42 Monocyte% 1 % Normal 0-10 Platelet Estimate NORMAL Polychromasia 0-1+ Anisocytosis 0-1+ Macrocytosis 0-1+ Laboratory test 12/13/2018 [facility] Magnesium 2.1 mg/dL Normal 1.8-2.4 7 finding [address] [place] [address] [phone] Slide Review DIFF ORDERED 8 Comprehensive Metabolic 12/13/2018 [facility] Glucose 200 mg/dL High 74-106 Panel [address] [place] [address] [phone] BUN 17 mg/dL Normal 7-18 Creatinine 0.8 [...] 139 U/L High 45-117 CBC W/Automated 12/13/2018 [facility] White Blood 6.6 K/uL Normal 3.1-10.[address] [place] [address] [phone] Red Blood Count 3.71 M/uL Low 3.90-5.40 [...] 40.4-72.8 Lymph % 5.9 % Low 20.0-42.0 [place] % 3.6 % Low 4.3-13.2 Eo% 1.5 % Normal 0.0-6.6 Bas% 0.2 % Normal 0.0-1.1 Immature Grans 0.5 % Normal 0.0-5.0 NRBC % 0.0 /100WBC < 10/ 100 WBC Neut# 5.84 K/uL Normal 1.8-7.0 Lymph # 0.39 K/uL Low 1.0-4.0 [place] # 0.24 K/uL Low 0.3-0.9 Eos # 0.10 K/uL Normal 0.0-0.5 Baso # 0.01 K/uL Normal 0.0-0.1 Immature Grans Absolute 0.03 K/uL NRBC # 0.00 K/uL CBC W/Automated 12/06/2018 [facility] White 4.6 K/uL Normal 3.1-10.7 10 Diff 134 [facility] [place] [address] Count [phone] Red Blood Count 3.55 M/uL Low 3.90-5.40 [...] 40.4-72.8 Lymph % 13.1 % Low 20.0-42.0 [place] % 18.7 % High 4.3-13.2 Eo% 0.7 % Normal 0.0-6.6 Bas% 0.2 % Normal 0.0-1.1 Immature Grans 0.4 % Normal 0.0-5.0 NRBC % 0.0 /100WBC < 10/ 100 WBC Neut# 3.07 K/uL Normal 1.8-7.0 Lymph # 0.60 K/uL Low 1.0-4.0 [place] # 0.86 K/uL Normal 0.3-0.9 Eos # 0.03 K/uL Normal 0.0-0.5 Baso # 0.01 K/uL Normal 0.0-0.1 Immature Grans Absolute 0.02 K/uL NRBC # 0.00 K/uL Comprehensive Metabolic 12/06/2018 [facility] Glucose 120 mg/dL High 74-106 Panel [address] [place] [address] [phone] BUN 21 mg/dL High 7-18 Creatinine 1.0 [...] 138 U/L High 45-117 Laboratory test 12/06/2018 [facility] Magnesium 2.3 mg/dL Normal 1.8-2.4 [address] [place], [place] [address] [phone] CBC W/Automated 11/27/2018 [facility] White Blood 4.0 K/uL Normal 3.1-10.7 [address] Count [place], [place] [address] [phone] Red Blood Count 3.96 M/uL Normal 3.90-5.40 [...] 40.4-72.8 Lymph % 12.3 % Low 20.0-42.0 [place] % 6.0 % Normal 4.3-13.2 Eo% 1.3 % Normal 0.0-6.6 Bas% 0.8 % Normal 0.0-1.1 Immature Grans 0.5 % Normal 0.0-5.0 NRBC % 0.0 /100WBC < 10/ 100 WBC Neut# 3.17 K/uL Normal 1.8-7.0 Lymph # 0.49 K/uL Low 1.0-4.0 [place] # 0.24 K/uL Low 0.3-0.9 Eos # 0.05 K/uL Normal 0.0-0.5 Baso # 0.03 K/uL Normal 0.0-0.1 Immature Grans Absolute 0.02 K/uL NRBC # 0.00 K/uL Comprehensive 11/27/2018 [facility] Glucose 78 mg/dL Normal 74-106 Metabolic Panel [address] [place] [address] [phone] BUN 21 mg/dL High 7-18 Creatinine 0.9 [...] 145 U/L High 45-117 Laboratory test 11/27/2018 [facility] Magnesium 2.4 Normal 1.8-2.4 [address] mg/dL [place] [address] [phone] Slide Review 11/21/2018 [facility] Slide Review (SEE 16, [address] NOTE) 17 [place] [address] [phone] Laboratory test 11/21/2018 [facility] Magnesium 2.3 Normal 1.8-2.[address] mg/[place] [address] [phone] Comprehensive 11/21/2018 [facility] Glucose 209 High 74-106 Metabolic Panel [address] mg/[place] [address] [phone] BUN 17 mg/dL Normal 7-18 Creatinine 1.0 [...] 153 U/L High 45-117 CBC W/Automated 11/21/2018 [facility] White Blood 4.3 K/uL Normal 3.1-10.[address] [place] [address] [phone] Red Blood Count 3.63 M/uL Low 3.90-5.40 [...] 40.4-72.8 Lymph % 9.6 % Low 20.0-42.0 [place] % 6.1 % Normal 4.3-13.2 Eo% 0.0 % Normal 0.0-6.6 Bas% 0.2 % Normal 0.0-1.1 Immature Grans 1.2 % Normal 0.0-5.0 NRBC % 0.0 /100WBC < 10/ 100 WBC Neut# 3.56 K/uL Normal 1.8-7.0 Lymph # 0.41 K/uL Low 1.0-4.0 [place] # 0.26 K/uL Low 0.3-0.9 Eos # 0.00 K/uL Normal 0.0-0.5 Baso # 0.01 K/uL Normal 0.0-0.1 Immature Grans Absolute 0.05 K/uL NRBC # 0.00 K/uL CBC W/Automated 10/31/2018 [facility] White 4.2 K/uL Normal 3.1-10.7 19 Diff [address] [facility] [place] [address] Count [phone] Red Blood Count 3.93 M/uL Normal 3.90-5.40 [...] 40.4-72.8 Lymph % 10.3 % Low 20.0-42.0 [place] % 7.9 % Normal 4.3-13.2 Eo% 0.0 % Normal 0.0-6.6 Bas% 0.2 % Normal 0.0-1.1 Immature Grans 1.0 % Normal 0.0-5.0 NRBC % 0.0 /100WBC < 10/ 100 WBC Neut# 3.38 K/uL Normal 1.8-7.0 Lymph # 0.43 K/uL Low 1.0-4.0 [place] # 0.33 K/uL Normal 0.3-0.9 Eos # 0.00 K/uL Normal 0.0-0.5 Baso # 0.01 K/uL Normal 0.0-0.1 Immature Grans Absolute 0.04 K/uL NRBC # 0.00 K/uL Comprehensive Metabolic 10/31/2018 [facility] Glucose 112 mg/dL High 74-106 Panel [address] [place] [address] [phone] BUN 15 mg/dL Normal 7-18 Creatinine 0.9 [...] 170 U/L High 45-117 Laboratory test 10/31/2018 [facility] Magnesium 2.3 mg/dL Normal 1.8-2.4 21 finding [place] [address] [phone] CBC W/Automated 10/10/2018 [facility] White Blood 2.9 K/uL Low 3.1-10.[address] [place] [address] [phone] Red Blood Count 3.91 M/uL Normal 3.90-5.40 [...] 40.4-72.8 Lymph % 5.6 % Low 20.0-42.0 [place] % 4.2 % Low 4.3-13.2 Eo% 0.0 % Normal 0.0-6.6 Bas% 0.3 % Normal 0.0-1.1 Immature Grans 0.7 % Normal 0.0-5.0 NRBC % 0.0 /100WBC < 10/ 100 WBC Neut# 2.56 K/uL Normal 1.8-7.0 Lymph # 0.16 K/uL Low 1.0-4.0 [place] # 0.12 K/uL Low 0.3-0.9 Eos # 0.00 K/uL Normal 0.0-0.5 Baso # 0.01 K/uL Normal 0.0-0.1 Immature Grans Absolute 0.02 K/uL NRBC # 0.00 K/uL Comprehensive Metabolic 10/10/2018 [facility] Glucose 259 mg/dL High 74-106 Panel [address] [place], [place] [address] [phone] BUN 12 mg/dL Normal 7-18 Creatinine 0.9 [...] 132 U/L High 45-117 Laboratory test 10/10/2018 [facility] Magnesium 2.2 mg/dL Normal 1.8-2.[address] [place] [address] [phone] Slide Review 10/10/2018 [facility] Slide Review DIFF [address] ORDERED [place] [address] [phone] Laboratory test 10/10/2018 [facility] Path Review: <pending> finding [address] [place] [address] [phone] Differential-WB 10/10/2018 [facility] Total Cells 100 #CELLS C Confirm [address] Counted [place] [address] [phone] Neutrophils% 91 % High 33-73 Lymph% 4 % Low 20-42 Monocyte% 3 % Normal 0-10 Eosinophil% 1 % Normal 0-5 Basophil% 1 % Normal 0-2 Platelet Estimate NORMAL Polychromasia 0-1+ Anisocytosis 0-1+ Differential Comment LARGE PLATELETS <SEE NOTE> 23 CBC W/Automated 09/19/2018 [facility] White Blood 4.5 K/uL Normal 3.1-10.[address] Count [place] [address] [phone] Red Blood Count 4.19 M/uL Normal 3.90-5.40 [...] 40.4-72.8 Lymph % 8.0 % Low 20.0-42.0 [place] % 4.5 % Normal 4.3-13.2 Eo% 0.0 % Normal 0.0-6.6 Bas% 0.4 % Normal 0.0-1.1 Immature Grans 1.3 % Normal 0.0-5.0 NRBC % 0.0 /100WBC < 10/ 100 WBC Neut# 3.85 K/uL Normal 1.8-7.0 Lymph # 0.36 K/uL Low 1.0-4.0 [place] # 0.20 K/uL Low 0.3-0.9 Eos # 0.00 K/uL Normal 0.0-0.5 Baso # 0.02 K/uL Normal 0.0-0.1 Immature Grans Absolute 0.06 K/uL NRBC # 0.00 K/uL Comprehensive Metabolic 09/19/2018 [facility] Glucose 191 mg/dL High 74-106 Panel [address] [place] [address] [phone] BUN 11 mg/dL Normal 7-18 Creatinine 0.9 [...] 116 U/L Normal 45-117 Laboratory test 09/19/2018 [facility] Magnesium 2.2 mg/dL Normal 1.8-2.[address] [place], [place] [address] [phone] CBC W/Automated 09/13/2018 [facility] White Blood 3.5 K/uL Normal 3.1-10.[address] Count [place], [place] [address] [phone] Red Blood Count 3.74 M/uL Low 3.90-5.40 [...] 40.4-72.8 Lymph % 18.7 % Low 20.0-42.0 [place] % 12.1 % Normal 4.3-13.2 Eo% 1.2 % Normal 0.0-6.6 Bas% 0.3 % Normal 0.0-1.1 Immature Grans 0.3 % Normal 0.0-5.0 NRBC % 0.0 /100WBC < 10/ 100 WBC Neut# 2.34 K/uL Normal 1.8-7.0 Lymph # 0.65 K/uL Low 1.0-4.0 [place] # 0.42 K/uL Normal 0.3-0.9 Eos # 0.04 K/uL Normal 0.0-0.5 Baso # 0.01 K/uL Normal 0.0-0.1 Immature Grans Absolute 0.01 K/uL NRBC # 0.00 K/uL CBC W/Automated 09/06/2018 [facility] White 4.1 K/uL Normal 3.1-10.7 [address] [place] [place] [address] Count [phone] Red Blood Count 3.76 M/uL Low 3.90-5.40 [...] 40.4-72.8 Lymph % 17.4 % Low 20.0-42.0 [place] % 12.0 % Normal 4.3-13.2 Eo% 1.2 % Normal 0.0-6.6 Bas% 0.5 % Normal 0.0-1.1 Immature Grans 1.2 % Normal 0.0-5.0 NRBC % 0.0 /100WBC < 10/ 100 WBC Neut# 2.77 K/uL Normal 1.8-7.0 Lymph # 0.71 K/uL Low 1.0-4.0 [place] # 0.49 K/uL Normal 0.3-0.9 Eos # 0.05 K/uL Normal 0.0-0.5 Baso # 0.02 K/uL Normal 0.0-0.1 Immature Grans Absolute 0.05 K/uL NRBC # 0.00 K/uL Comprehensive 09/06/2018 [facility] Glucose 84 mg/dL Normal 74-106 Metabolic Panel [address] [place] [address] [phone] BUN 9 mg/dL Normal 7-18 Creatinine 0.7 [...] 96 U/L Normal 45-117 Laboratory test 09/06/2018 [facility] Magnesium 2.5 mg/dL High 1.8-2.[address] [place] [address] [phone] Vitamin B12 And 08/29/2018 [facility] Vitamin B12 719 pg/mL Normal 193-986 [address] [place] [address] [phone] Folic Acid > 20.0 ng/mL High 3.1-17.5 Laboratory 08/29/2018 [facility] Vitamin 24.1 Low 30.0-100.0 28 test finding [address] D,25-Hydroxy ng/[place] [address] [phone] CBC 08/29/2018 [facility] White Blood 9.3 K/uL Normal 3.1-10.7 W/Automated [address] [place] [address] [phone] Red Blood Count 4.07 M/uL Normal 3.90-5.40 [...] 40.4-72.8 Lymph % 21.8 % Normal 20.0-42.0 [place] % 8.4 % Normal 4.3-13.2 Eo% 2.3 % Normal 0.0-6.6 Bas% 0.9 % Normal 0.0-1.1 Immature Grans 0.6 % Normal 0.0-5.0 NRBC % 0.0 /100WBC < 10/ 100 WBC Neut# 6.13 K/uL Normal 1.8-7.0 Lymph # 2.02 K/uL Normal 1.0-4.0 [place] # 0.78 K/uL Normal 0.3-0.9 Eos # 0.21 K/uL Normal 0.0-0.5 Baso # 0.08 K/uL Normal 0.0-0.1 Immature Grans Absolute 0.06 K/uL NRBC # 0.00 K/uL Comprehensive Metabolic 08/29/2018 [facility] Glucose 163 mg/dL High 74-106 Panel [address] [place] [address] [phone] BUN 17 mg/dL Normal 7-18 Creatinine 0.9 [...] Phosphatase 91 U/L Normal 45-117 Iron-Tibc-%Sat 08/29/2018 [facility] Serum Iron 26 g/dL Low 50-[address] [place] [address] [phone] Total Iron Binding Capacity 231 g/dL Low 250-450 Transferrin %Saturation 11 % Low 12-57 Laboratory test 08/29/2018 [facility] Ferritin 228 ng/mL Normal 8-[address] [place] [address] [phone] Vitamin B12 And 08/17/2018 [facility] Vitamin B12 515 pg/mL Normal 193-[address] [place], [place] [address] [phone] Folic Acid 9.7 ng/mL Normal 3.1-17.5 Laboratory 08/17/2018 [facility] Vitamin 15.5 Low 30.0-100.0 30 test finding [address] D,25-Hydroxy ng/[place] [address] [phone] CBC 08/17/2018 [facility] White Blood 9.1 K/uL Normal 3.1-10.7 W/Automated [address] [place] [address] [phone] Red Blood Count 4.33 M/uL Normal 3.90-5.40 [...] 40.4-72.8 Lymph % 23.4 % Normal 20.0-42.0 [place] % 7.1 % Normal 4.3-13.2 Eo% 1.5 % Normal 0.0-6.6 Bas% 0.7 % Normal 0.0-1.1 Immature Grans 0.4 % Normal 0.0-5.0 NRBC % 0.0 /100WBC < 10/ 100 WBC Neut# 6.06 K/uL Normal 1.8-7.0 Lymph # 2.12 K/uL Normal 1.0-4.0 [place] # 0.64 K/uL Normal 0.3-0.9 Eos # [...] D deficiency has been defined by the [employer] and an Endocrine Society practice guideline as a level of serum 25-OH vitamin D less than 20 ng/mL (1,2). The Endocrine Society went on to further define vitamin D insufficiency as a level between 21 and 29 ng/mL (2). 1. IOM ([employer]). 2010. Dietary reference intakes for calcium and D. [place]: The National Academies Press. 2. Kip MF, Shawn NC, Sultana PEARL, et al. Evaluation, treatment, and prevention of vitamin D deficiency: an Endocrine Society clinical practice guideline. JCEM. 2010; 96(7):1911-30. Performed at: RN - [facility] [address] [id number] Plant Facilities Technician: Carlee Ramos MD, Phone: [phone] Note: Persistent reduction for 3 months [...] found at [email or web address]. 15 STAT BHAVANA [place] [employer] ANALYST PORT DRAW 16 Z51.11 C34.31 C78.7 17 [...] D deficiency has been defined by the [employer] and an Endocrine Society practice guideline as a level of serum 25-OH vitamin D less than 20 ng/mL (1,2). The Endocrine Society went on to further define vitamin D insufficiency as a level between 21 and 29 ng/mL (2). 1. IOM ([employer]). 2010. Dietary reference intakes for calcium and D. [place]: The National Academies Press. 2. Kip MF, Shawn [place], Sultana PEARL, et al. Evaluation, treatment, and prevention of vitamin D deficiency: an Endocrine Society clinical practice guideline. JCEM. 2011 Nov; 96(7):1911-30. Performed at: RN - [facility] [address] [id number] Plant Facilities Technician: Carlee Ramos MD, Phone: [phone] Note: Persistent reduction for 3 months [...] D deficiency has been defined by the [employer] and an Endocrine Society practice guideline as a level of serum 25-OH vitamin D less than 20 ng/mL (1,2). The Endocrine Society went on to further define vitamin D insufficiency as a level between 21 and 29 ng/mL (2). 1. IOM ([employer]). 2010. Dietary reference intakes for calcium and D. [place]: The National Academies Press. 2. Kip MF, Shawn [place], Sultana PEARL, et al. Evaluation, treatment, and prevention of vitamin D deficiency: an Endocrine Society clinical practice guideline. JCEM. 2010; 96(7):1911-30. Performed at: RN - [facility] [address] [id number] Plant Facilities Technician: Carlee Ramos MD, Phone: [phone] Procedures Date Code Description Status 08/29/2018 06868 Irrigation Implanted Venous Access Device For Drug System Completed 08/29/2018 41753 Collect Blood Specimen From Completely Implant Venous Completed Access Dev 08/17/2018 96873 Theraputic Or Diagnostic Injection Completed 08/15/2018 51192 Bronchospasm Provocation Evaluation Multi Spirometric Completed Determinati 08/15/2018 99915 Spirometry Completed Medical Devices Description No Information Available Encounters Type Date Location Provider Dx Diagnosis Office Visit 11/27/2018 9:15a [facility] Bhavana Ragland, E86.0 Dehydration SALES COMMISSIONS ANALYST C34.31 Malignant neoplasm of lower lobe, right bronchus or lung 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 Office Visit 11/22/2018 11:00a [facility] [place] Z51.11 Encounter for Bhavana Ayala., antineoplastic SALES COMMISSIONS ANALYST chemotherapy C34.31 Malignant neoplasm of lower lobe, right bronchus or lung 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 Office Visit 11/01/2018 11:00a [facility] [place] Z51.11 Encounter for Bhavana Ayala., antineoplastic SALES COMMISSIONS ANALYST chemotherapy C34.31 Malignant neoplasm of lower lobe, right bronchus or lung 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 D64.81 Anemia due to antineoplastic chemotherapy Office Visit 10/11/2018 10:30a [facility] [place] Z51.11 Encounter for Bhavana Ayala., antineoplastic SALES COMMISSIONS ANALYST chemotherapy C34.31 Malignant neoplasm of lower lobe, right bronchus or lung 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 D64.81 Anemia due to antineoplastic chemotherapy Office Visit 09/20/2018 10:30a [facility] [place] Z51.11 Encounter for Bhavana Ayala., antineoplastic SALES COMMISSIONS ANALYST chemotherapy C34.31 Malignant neoplasm of lower lobe, right bronchus or lung 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 D64.81 Anemia due to antineoplastic chemotherapy Office Visit 09/06/2018 7:30a [facility] Bhavana RaglandYaakov, E86.0 Dehydration SALES COMMISSIONS ANALYST C34.31 Malignant neoplasm of lower lobe, right bronchus or lung 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 , SALES COMMISSIONS ANALYST bronchus or lung 01/03/2019 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 EllynBhavana., SALES COMMISSIONS ANALYST intrahepatic bile duct 01/03/2019 D64.81 Anemia due to antineoplastic chemotherapy Bhavana Ragland., SALES COMMISSIONS ANALYST 01/02/2019 C34.31 Malignant neoplasm of lower lobe, [...] right Boufal, Wilma, DO bronchus or lung 12/13/2018 Z51.11 Encounter for antineoplastic chemotherapy Boufal, Wilma , DO 12/06/2018 C34.31 Malignant neoplasm of lower lobe, right BoElen nuñezaret, DO bronchus or lung 12/06/2018 C34.31 Malignant neoplasm of lower lobe, right Oncology Nurse bronchus or lung 12/06/2018 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 BoElen nuñezaret , DO intrahepatic bile duct 12/06/2018 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 Oncology Nurse intrahepatic bile duct 12/06/2018 D64.81 Anemia due to antineoplastic chemotherapy Fede Goodricht , DO 12/06/2018 D64.81 Anemia due to antineoplastic chemotherapy Oncology Nurse 12/06/2018 E86.0 Dehydration Fede Goodricht, DO 12/06/2018 E86.0 Dehydration Oncology Nurse 11/27/2018 E86.0 Dehydration Bhavana Ragland, SALES COMMISSIONS ANALYST 11/27/2018 C34.31 Malignant neoplasm of lower lobe, right Bhavana Ragland , SALES COMMISSIONS ANALYST bronchus or lung 11/27/2018 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 Bhavana Ragland, SALES COMMISSIONS ANALYST intrahepatic bile duct 11/22/2018 Z51.11 Encounter for antineoplastic chemotherapy Bhavana Ragland, SALES COMMISSIONS ANALYST 11/22/2018 C34.31 Malignant neoplasm of lower lobe, right Bhavana Ragland , SALES COMMISSIONS ANALYST bronchus or lung 11/22/2018 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 Bhavana Ragland, SALES COMMISSIONS ANALYST intrahepatic bile duct 11/21/2018 Z51.11 Encounter for antineoplastic chemotherapy Fede Goodricht , DO 11/21/2018 Z51.11 Encounter for antineoplastic chemotherapy Oncology Nurse 11/21/2018 C34.31 Malignant neoplasm of lower lobe, right BoufalElenWilma, DO bronchus or lung 11/21/2018 C34.31 Malignant neoplasm of lower lobe, right Oncology Nurse bronchus or lung 11/21/2018 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 , SALES COMMISSIONS ANALYST bronchus or lung 10/11/2018 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 [place]Nadira myersie B., SALES COMMISSIONS ANALYST intrahepatic bile 10/11/2018 D64.81 Anemia due to antineoplastic chemotherapy [place]havana B., SALES COMMISSIONS ANALYST 10/10/2018 C34.31 Malignant neoplasm of lower lobe, right Boufal, Wilma, DO bronchus or lung 10/10/2018 C34.31 Malignant neoplasm of lower lobe, right Oncology Nurse bronchus or lung 10/02/2018 C34.31 Malignant neoplasm of lower lobe, right Boufal, Wilma, DO bronchus or lung 10/02/2018 C34.31 Malignant neoplasm of lower lobe, right Oncology Nurse bronchus or lung 09/20/2018 Z51.11 Encounter for antineoplastic chemotherapy EllynNadiraie B., SALES COMMISSIONS ANALYST 09/20/2018 C34.31 Malignant neoplasm of lower lobe, right [place]lyn, Bhavana B. 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 [place]ad[place] B., SALES COMMISSIONS ANALYST intrahepatic bile 09/20/2018 D64.81 Anemia due to antineoplastic chemotherapy [place]Nadiraie B., SALES COMMISSIONS ANALYST 09/19/2018 C34.31 Malignant neoplasm of lower lobe, right Boufal, Wilma, DO bronchus or lung 09/19/2018 C34.31 Malignant neoplasm of lower lobe, right Oncology Nurse bronchus or lung 09/13/2018 C34.31 Malignant neoplasm of lower lobe, right Boufal, Wilma, DO bronchus or lung 09/13/2018 C34.31 Malignant neoplasm of lower lobe, right Oncology Nurse bronchus or lung 09/06/2018 E86.0 Dehydration Bhavana Ragland, SALES COMMISSIONS ANALYST 09/06/2018 C34.31 Malignant neoplasm of lower lobe, right Bhavana Ragland , SALES COMMISSIONS ANALYST bronchus or lung 09/06/2018 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 Bhavana Ragland, SALES COMMISSIONS ANALYST intrahepatic bile 09/06/2018 D64.81 Anemia due to antineoplastic chemotherapy Bhavana Ragland, SALES COMMISSIONS ANALYST 08/30/2018 Z51.11 Encounter for antineoplastic chemotherapy Bhavana Ragland, SALES COMMISSIONS ANALYST 08/30/2018 C34.31 Malignant neoplasm of lower lobe, right Bhavana Ragland , SALES COMMISSIONS ANALYST bronchus or lung 08/30/2018 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 Bhavana Ragland, SALES COMMISSIONS ANALYST intrahepatic bile 08/30/2018 R11.0 Nausea Bhavana Ragland, SALES COMMISSIONS ANALYST 08/29/2018 E56.9 Vitamin deficiency, unspecified Boufal, Wilma, [...] am - Infusion Chair 1 at Infusion [id number]/24/2019 11:00 am - Bhavana Ragland, SALES COMMISSIONS ANALYST at Infusion [id number]/03/2019 - Bhavana Ragland, NPZ51.11 Encounter for antineoplastic chemotherapyComments :No contraindication to [id number] Malignant neoplasm of lower lobe, right bronchus or lungComments:Patient has completed 4 cycles of carboplatin/ pemetrexed with concurrent RT. Patient completed 33 RT fractions from 08/30/18 to 10/16/18. Today, pt will be given C3 bevacizumab/pemetrexed/ carboplatin.Primary treatment related complaint is fatigue.Follow up:RTC in 3 weeks for evaluation for treatment.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 intrahepatic bile ductComments:As [id number] Anemia due to antineoplastic chemotherapyComments:Improved Functional Status Description No Information Available Mental Status Description No Information Available Referrals Description No Information Available
--- OUTSIDE RECORDS SUMMARY | 2019-01-30 08:04 | XMS REPORT | Continuity of Care Document ---
:1960 External Reference #:[id number] Author Name Wilma Goodrich DO Address [address] [place] [address] Care Team Providers Name Role Phone Danna Capps MD - Internal Medicine Care Team Information Steel Roller Jose Newton M.D. - Radiation Care Team Information Steel Roller [phone] Oncology Problems Active Problems Provider Date Encounter [...] Wilma, Decadron 1 tabl by mouth 6tabs Bokelseyal, 08/28/2018 4mg Tablets twice a day start Wilma, day before chmo Pantoprazole Sodium 1 tabl [...] by mouth 6caps Wilma Goodrich, 08/18/2018 - 34063Enpi every week DO 01/03/2019 Capsules Medications Administered in Office Medication SIG Qnty Indications Ordering Provider Date Vitamin B12 Injection 1000 CrystalElenWilma, DO 08/17/2018 mcg/Ml Injection Immunizations Description No [...] 1 W/Automated [address] [place] [address] [phone] Red Blood Count 3.68 M/uL Low 3.90-5.40 [...] 40.4-72.8 Lymph % 7.2 % Low 20.0-42.0 [place] % 2.5 % Low 4.3-13.2 Eo% 0.0 % Normal 0.0-6.6 Bas% 0.2 % Normal 0.0-1.1 Immature Grans 0.7 % Normal 0.0-5.0 NRBC % 0.0 /100WBC < 10/ 100 WBC Neut# 3.98 K/uL Normal 1.8-7.0 Lymph # 0.32 K/uL Low 1.0-4.0 [place] # 0.11 K/uL Low 0.3-0.9 Eos # 0.00 K/uL Normal 0.0-0.5 Baso # 0.01 K/uL Normal 0.0-0.1 Immature Grans Absolute 0.03 K/uL NRBC # 0.00 K/uL Comprehensive Metabolic 01/02/2019 [facility] Glucose 201 mg/dL High 74-106 Panel [address] [place] [address] [phone] BUN 21 mg/dL High 7-18 Creatinine 1.0 [...] 146 U/L High 45-117 Laboratory test 01/02/2019 [facility] Magnesium 2.0 mg/dL Normal 1.8-2.[address] [place] [address] [phone] CBC W/Automated 12/27/2018 [facility] White Blood 4.2 K/uL Normal 3.1-10.7 [address] [place] [address] [phone] Red Blood Count 3.33 M/uL Low 3.90-5.40 [...] 40.4-72.8 Lymph % 13.4 % Low 20.0-42.0 [place] % 17.9 % High 4.3-13.2 Eo% 1.2 % Normal 0.0-6.6 Bas% 0.2 % Normal 0.0-1.1 Immature Grans 0.5 % Normal 0.0-5.0 NRBC % 0.0 /100WBC < 10/ 100 WBC Neut# 2.79 K/uL Normal 1.8-7.0 Lymph # 0.56 K/uL Low 1.0-4.0 [place] # 0.75 K/uL Normal 0.3-0.9 Eos # 0.05 K/uL Normal 0.0-0.5 Baso # 0.01 K/uL Normal 0.0-0.1 Immature Grans Absolute 0.02 K/uL NRBC # 0.00 K/uL Differential-WBC Confirm 12/19/2018 [facility] Total Cells 100 #CELLS [address] Counted [place], [place] [id number] [phone] Neutrophils% 65 % Normal 33-73 Lymph% 20 % Normal 20-42 Monocyte% 11 % High 0-10 Eosinophil% 1 % Normal 0-5 Basophil% 3 % High 0-2 Platelet Estimate NORMAL RBC Morphology NORMAL Laboratory test 12/19/2018 [facility] Path Review: <pending> finding [address] [address] [phone] Slide Review 12/19/2018 [facility] Slide Review DIFF ORDERED [address] [address] [phone] Laboratory test 12/19/2018 [facility] Vitamin 24.5 ng/mL Low 30.0- 4 finding [address] D,25-Hydroxy 100.0 [place] [address] [phone] Vitamin B12 And 12/19/2018 [facility] Vitamin B12 1343 pg/mL High 193-9 Folate [address] [place], [place] [id number] [phone] Folic Acid > 20.0 ng/mL High 3.1-17.5 Laboratory test 12/19/2018 [facility] Ferritin 618 ng/mL High 8-252 finding [address] [address] [phone] Iron-Tibc-%Sat 12/19/2018 [facility] Serum Iron 264 g/dL High 50-170 [address] [address] [phone] Total Iron Binding Capacity 332 g/dL Normal 250-450 Transferrin %Saturation 80 % High 12-57 Laboratory test 12/19/2018 [facility] Magnesium 2.1 mg/dL Normal 1.8-2.4 finding [address] [place] [address] [phone] Comprehensive 12/19/2018 [facility] Glucose 106 mg/dL Normal 74-106 Metabolic Panel [address] [place] [address] [phone] BUN 17 mg/dL Normal 7-18 Creatinine 0.9 [...] 125 U/L High 45-117 CBC W/Automated 12/19/2018 [facility] White Blood 2.6 K/uL Low 3.1-10.[address] [place] [address] [phone] Red Blood Count 3.56 M/uL Low 3.90-5.40 [...] 40.4-72.8 Lymph % 22.0 % Normal 20.0-42.0 [place] % 14.5 % High 4.3-13.2 Eo% 1.6 % Normal 0.0-6.6 Bas% 0.8 % Normal 0.0-1.1 Immature Grans 0.4 % Normal 0.0-5.0 NRBC % 0.0 /100WBC < 10/ 100 WBC Neut# 1.55 K/uL Low 1.8-7.0 Lymph # 0.56 K/uL Low 1.0-4.0 [place] # 0.37 K/uL Normal 0.3-0.9 Eos # 0.04 K/uL Normal 0.0-0.5 Baso # 0.02 K/uL Normal 0.0-0.1 Immature Grans Absolute 0.01 K/uL NRBC # 0.00 K/uL Differential-WBC Confirm 12/13/2018 [facility] Total Cells 100 #CELLS [address] [place] [address] [phone] Neutrophils% 92 % High 33-73 Lymph% 7 % Low 20-42 Monocyte% 1 % Normal 0-10 Platelet Estimate NORMAL Polychromasia 0-1+ Anisocytosis 0-1+ Macrocytosis 0-1+ Laboratory test 12/13/2018 [facility] Magnesium 2.1 mg/dL Normal 1.8-2.4 7 finding [address] [place], [place] [phone] Slide Review DIFF ORDERED 8 Comprehensive Metabolic 12/13/2018 [facility] Glucose 200 mg/dL High 74-106 Panel [address] [place] [address] [phone] BUN 17 mg/dL Normal 7-18 Creatinine 0.8 [...] 139 U/L High 45-117 CBC W/Automated 12/13/2018 [facility] White Blood 6.6 K/uL Normal 3.1-10.[address] [place] [address] [phone] Red Blood Count 3.71 M/uL Low 3.90-5.40 [...] 40.4-72.8 Lymph % 5.9 % Low 20.0-42.0 [place] % 3.6 % Low 4.3-13.2 Eo% 1.5 % Normal 0.0-6.6 Bas% 0.2 % Normal 0.0-1.1 Immature Grans 0.5 % Normal 0.0-5.0 NRBC % 0.0 /100WBC < 10/ 100 WBC Neut# 5.84 K/uL Normal 1.8-7.0 Lymph # 0.39 K/uL Low 1.0-4.0 [place] # 0.24 K/uL Low 0.3-0.9 Eos # 0.10 K/uL Normal 0.0-0.5 Baso # 0.01 K/uL Normal 0.0-0.1 Immature Grans Absolute 0.03 K/uL NRBC # 0.00 K/uL CBC W/Automated 12/06/2018 [facility] White 4.6 K/uL Normal 3.1-10.7 10 Diff [address] [facility] [place] [address] Count [phone] Red Blood Count 3.55 M/uL Low 3.90-5.40 [...] 40.4-72.8 Lymph % 13.1 % Low 20.0-42.0 [place] % 18.7 % High 4.3-13.2 Eo% 0.7 % Normal 0.0-6.6 Bas% 0.2 % Normal 0.0-1.1 Immature Grans 0.4 % Normal 0.0-5.0 NRBC % 0.0 /100WBC < 10/ 100 WBC Neut# 3.07 K/uL Normal 1.8-7.0 Lymph # 0.60 K/uL Low 1.0-4.0 [place] # 0.86 K/uL Normal 0.3-0.9 Eos # 0.03 K/uL Normal 0.0-0.5 Baso # 0.01 K/uL Normal 0.0-0.1 Immature Grans Absolute 0.02 K/uL NRBC # 0.00 K/uL Comprehensive Metabolic 12/06/2018 [facility] Glucose 120 mg/dL High 74-106 Panel [address] [place] [address] [phone] BUN 21 mg/dL High 7-18 Creatinine 1.0 [...] 138 U/L High 45-117 Laboratory test 12/06/2018 [facility] Magnesium 2.3 mg/dL Normal 1.8-2.4 [address] [place] [address] [phone] CBC W/Automated 11/27/2018 [facility] White Blood 4.0 K/uL Normal 3.1-10.7 [address] Count [place], [place] [address] [phone] Red Blood Count 3.96 M/uL Normal 3.90-5.40 [...] 40.4-72.8 Lymph % 12.3 % Low 20.0-42.0 [place] % 6.0 % Normal 4.3-13.2 Eo% 1.3 % Normal 0.0-6.6 Bas% 0.8 % Normal 0.0-1.1 Immature Grans 0.5 % Normal 0.0-5.0 NRBC % 0.0 /100WBC < 10/ 100 WBC Neut# 3.17 K/uL Normal 1.8-7.0 Lymph # 0.49 K/uL Low 1.0-4.0 [place] # 0.24 K/uL Low 0.3-0.9 Eos # 0.05 K/uL Normal 0.0-0.5 Baso # 0.03 K/uL Normal 0.0-0.1 Immature Grans Absolute 0.02 K/uL NRBC # 0.00 K/uL Comprehensive 11/27/2018 [facility] Glucose 78 mg/dL Normal 74-106 Metabolic Panel [address] [place] [address] [phone] BUN 21 mg/dL High 7-18 Creatinine 0.9 [...] 145 U/L High 45-117 Laboratory test 11/27/2018 [facility] Magnesium 2.4 Normal 1.8-2.4 [address] mg/[place] [address] [phone] Slide Review 11/21/2018 [facility] Slide Review (SEE 16, [address] NOTE) 17 [place] [address] [phone] Laboratory test 11/21/2018 [facility] Magnesium 2.3 Normal 1.8-2.[address] mg/[place] [address] [phone] Comprehensive 11/21/2018 [facility] Glucose 209 High 74-106 Metabolic Panel [address] mg/[place] [address] [phone] BUN 17 mg/dL Normal 7-18 Creatinine 1.0 [...] 153 U/L High 45-117 CBC W/Automated 11/21/2018 [facility] White Blood 4.3 K/uL Normal 3.1-10.[address] [place] [address] [phone] Red Blood Count 3.63 M/uL Low 3.90-5.40 [...] 40.4-72.8 Lymph % 9.6 % Low 20.0-42.0 [place] % 6.1 % Normal 4.3-13.2 Eo% 0.0 % Normal 0.0-6.6 Bas% 0.2 % Normal 0.0-1.1 Immature Grans 1.2 % Normal 0.0-5.0 NRBC % 0.0 /100WBC < 10/ 100 WBC Neut# 3.56 K/uL Normal 1.8-7.0 Lymph # 0.41 K/uL Low 1.0-4.0 [place] # 0.26 K/uL Low 0.3-0.9 Eos # 0.00 K/uL Normal 0.0-0.5 Baso # 0.01 K/uL Normal 0.0-0.1 Immature Grans Absolute 0.05 K/uL NRBC # 0.00 K/uL CBC W/Automated 10/31/2018 [facility] White 4.2 K/uL Normal 3.1-10.7 19 Diff [address] [facility] [place] [address] Count [phone] Red Blood Count 3.93 M/uL Normal 3.90-5.40 [...] 40.4-72.8 Lymph % 10.3 % Low 20.0-42.0 [place] % 7.9 % Normal 4.3-13.2 Eo% 0.0 % Normal 0.0-6.6 Bas% 0.2 % Normal 0.0-1.1 Immature Grans 1.0 % Normal 0.0-5.0 NRBC % 0.0 /100WBC < 10/ 100 WBC Neut# 3.38 K/uL Normal 1.8-7.0 Lymph # 0.43 K/uL Low 1.0-4.0 [place] # 0.33 K/uL Normal 0.3-0.9 Eos # 0.00 K/uL Normal 0.0-0.5 Baso # 0.01 K/uL Normal 0.0-0.1 Immature Grans Absolute 0.04 K/uL NRBC # 0.00 K/uL Comprehensive Metabolic 10/31/2018 [facility] Glucose 112 mg/dL High 74-106 Panel [address] [place] [address] [phone] BUN 15 mg/dL Normal 7-18 Creatinine 0.9 [...] 170 U/L High 45-117 Laboratory test 10/31/2018 [facility] Magnesium 2.3 mg/dL Normal 1.8-2.4 [address] [place] [address] [phone] CBC W/Automated 10/10/2018 [facility] White Blood 2.9 K/uL Low 3.1-10.[address] [place] [address] [phone] Red Blood Count 3.91 M/uL Normal 3.90-5.40 [...] 40.4-72.8 Lymph % 5.6 % Low 20.0-42.0 [place] % 4.2 % Low 4.3-13.2 Eo% 0.0 % Normal 0.0-6.6 Bas% 0.3 % Normal 0.0-1.1 Immature Grans 0.7 % Normal 0.0-5.0 NRBC % 0.0 /100WBC < 10/ 100 WBC Neut# 2.56 K/uL Normal 1.8-7.0 Lymph # 0.16 K/uL Low 1.0-4.0 [place] # 0.12 K/uL Low 0.3-0.9 Eos # 0.00 K/uL Normal 0.0-0.5 Baso # 0.01 K/uL Normal 0.0-0.1 Immature Grans Absolute 0.02 K/uL NRBC # 0.00 K/uL Comprehensive Metabolic 10/10/2018 [facility] Glucose 259 mg/dL High 74-106 Panel [address] [place] [address] [phone] BUN 12 mg/dL Normal 7-18 Creatinine 0.9 [...] 132 U/L High 45-117 Laboratory test 10/10/2018 [facility] Magnesium 2.2 mg/dL Normal 1.8-2.[address] [place] [address] [phone] Slide Review 10/10/2018 [facility] Slide Review DIFF [address] ORDERED [place] [address] [phone] Laboratory test 10/10/2018 [facility] Path Review: <pending> finding [address] [place] [address] [phone] Differential-WB 10/10/2018 [facility] Total Cells 100 #CELLS C Confirm [address] Counted [place] [address] [phone] Neutrophils% 91 % High 33-73 Lymph% 4 % Low 20-42 Monocyte% 3 % Normal 0-10 Eosinophil% 1 % Normal 0-5 Basophil% 1 % Normal 0-2 Platelet Estimate NORMAL Polychromasia 0-1+ Anisocytosis 0-1+ Differential Comment LARGE PLATELETS <SEE NOTE> 23 CBC W/Automated 09/19/2018 [facility] White Blood 4.5 K/uL Normal 3.1-10.[address] Count [place] [address] [phone] Red Blood Count 4.19 M/uL Normal 3.90-5.40 [...] 40.4-72.8 Lymph % 8.0 % Low 20.0-42.0 [place] % 4.5 % Normal 4.3-13.2 Eo% 0.0 % Normal 0.0-6.6 Bas% 0.4 % Normal 0.0-1.1 Immature Grans 1.3 % Normal 0.0-5.0 NRBC % 0.0 /100WBC < 10/ 100 WBC Neut# 3.85 K/uL Normal 1.8-7.0 Lymph # 0.36 K/uL Low 1.0-4.0 [place] # 0.20 K/uL Low 0.3-0.9 Eos # 0.00 K/uL Normal 0.0-0.5 Baso # 0.02 K/uL Normal 0.0-0.1 Immature Grans Absolute 0.06 K/uL NRBC # 0.00 K/uL Comprehensive Metabolic 09/19/2018 [facility] Glucose 191 mg/dL High 74-106 Panel [address] [place], [place] [address] [phone] BUN 11 mg/dL Normal 7-18 Creatinine 0.9 [...] 116 U/L Normal 45-117 Laboratory test 09/19/2018 [facility] Magnesium 2.2 mg/dL Normal 1.8-2.[address] [place], [place] [address] [phone] CBC W/Automated 09/13/2018 [facility] White Blood 3.5 K/uL Normal 3.1-10.[address] Count [place], [place] [address] [phone] Red Blood Count 3.74 M/uL Low 3.90-5.40 [...] 40.4-72.8 Lymph % 18.7 % Low 20.0-42.0 [place] % 12.1 % Normal 4.3-13.2 Eo% 1.2 % Normal 0.0-6.6 Bas% 0.3 % Normal 0.0-1.1 Immature Grans 0.3 % Normal 0.0-5.0 NRBC % 0.0 /100WBC < 10/ 100 WBC Neut# 2.34 K/uL Normal 1.8-7.0 Lymph # 0.65 K/uL Low 1.0-4.0 [place] # 0.42 K/uL Normal 0.3-0.9 Eos # 0.04 K/uL Normal 0.0-0.5 Baso # 0.01 K/uL Normal 0.0-0.1 Immature Grans Absolute 0.01 K/uL NRBC # 0.00 K/uL CBC W/Automated 09/06/2018 [facility] White 4.1 K/uL Normal 3.1-10.7 [address] [place] [address] Count [phone] Red Blood Count 3.76 M/uL Low 3.90-5.40 [...] 40.4-72.8 Lymph % 17.4 % Low 20.0-42.0 [place] % 12.0 % Normal 4.3-13.2 Eo% 1.2 % Normal 0.0-6.6 Bas% 0.5 % Normal 0.0-1.1 Immature Grans 1.2 % Normal 0.0-5.0 NRBC % 0.0 /100WBC < 10/ 100 WBC Neut# 2.77 K/uL Normal 1.8-7.0 Lymph # 0.71 K/uL Low 1.0-4.0 [place] # 0.49 K/uL Normal 0.3-0.9 Eos # 0.05 K/uL Normal 0.0-0.5 Baso # 0.02 K/uL Normal 0.0-0.1 Immature Grans Absolute 0.05 K/uL NRBC # 0.00 K/uL Comprehensive 09/06/2018 [facility] Glucose 84 mg/dL Normal 74-106 Metabolic Panel [address] [place] [address] [phone] BUN 9 mg/dL Normal 7-18 Creatinine 0.7 [...] 96 U/L Normal 45-117 Laboratory test 09/06/2018 [facility] Magnesium 2.5 mg/dL High 1.8-2.[address] [place] [address] [phone] Vitamin B12 And 08/29/2018 [facility] Vitamin B12 719 pg/mL Normal 193-986 [address] [place] [address] [phone] Folic Acid > 20.0 ng/mL High 3.1-17.5 Laboratory 08/29/2018 [facility] Vitamin 24.1 Low 30.0-100.0 28 test finding [address] D,25-Hydroxy ng/[place] [address] [phone] CBC 08/29/2018 [facility] White Blood 9.3 K/uL Normal 3.1-10.7 W/Automated [address] [place] [address] [phone] Red Blood Count 4.07 M/uL Normal 3.90-5.40 [...] 40.4-72.8 Lymph % 21.8 % Normal 20.0-42.0 [place] % 8.4 % Normal 4.3-13.2 Eo% 2.3 % Normal 0.0-6.6 Bas% 0.9 % Normal 0.0-1.1 Immature Grans 0.6 % Normal 0.0-5.0 NRBC % 0.0 /100WBC < 10/ 100 WBC Neut# 6.13 K/uL Normal 1.8-7.0 Lymph # 2.02 K/uL Normal 1.0-4.0 [place] # 0.78 K/uL Normal 0.3-0.9 Eos # 0.21 K/uL Normal 0.0-0.5 Baso # 0.08 K/uL Normal 0.0-0.1 Immature Grans Absolute 0.06 K/uL NRBC # 0.00 K/uL Comprehensive Metabolic 08/29/2018 [facility] Glucose 163 mg/dL High 74-106 Panel [address] [place] [address] [phone] BUN 17 mg/dL Normal 7-18 Creatinine 0.9 [...] Phosphatase 91 U/L Normal 45-117 Iron-Tibc-%Sat 08/29/2018 [facility] Serum Iron 26 g/dL Low 50-170 [address] [place] [address] [phone] Total Iron Binding Capacity 231 g/dL Low 250-450 Transferrin %Saturation 11 % Low 12-57 Laboratory test 08/29/2018 [facility] Ferritin 228 ng/mL Normal 8-252 finding [address] [place] [address] [phone] Vitamin B12 And 08/17/2018 [facility] Vitamin B12 515 pg/mL Normal 193-986 Folate [address] [place], [place] [address] [phone] Folic Acid 9.7 ng/mL Normal 3.1-17.5 Laboratory 08/17/2018 [facility] Vitamin 15.5 Low 30.0-100.0 30 test finding [address],25-Hydroxy ng/[place] [address] [phone] CBC 08/17/2018 [facility] White Blood 9.1 K/uL Normal 3.1-10.7 W/Automated [address] [place] [address] [phone] Red Blood Count 4.33 M/uL Normal 3.90-5.40 [...] 40.4-72.8 Lymph % 23.4 % Normal 20.0-42.0 [place] % 7.1 % Normal 4.3-13.2 Eo% 1.5 % Normal 0.0-6.6 Bas% 0.7 % Normal 0.0-1.1 Immature Grans 0.4 % Normal 0.0-5.0 NRBC % 0.0 /100WBC < 10/ 100 WBC Neut# 6.06 K/uL Normal 1.8-7.0 Lymph # 2.12 K/uL Normal 1.0-4.0 [place] # 0.64 K/uL Normal 0.3-0.9 Eos # [...] D deficiency has been defined by the [place] [employer] and an Endocrine Society practice guideline as a level of serum 25-OH vitamin D less than 20 ng/mL (1,2). The Endocrine Society went on to further define vitamin D insufficiency as a level between 21 and 29 ng/mL (2). 1. IOM ([place] [employer]). 2010. Dietary reference intakes for calcium and D. Devi [place]: The National Academies Press. 2. Kip MF, Shawn [place], Sultana PEARL, et al. Evaluation, treatment, and prevention of vitamin D deficiency: an Endocrine Society clinical practice guideline. JCEM. 2010; 96(7):1911-30. Performed at: RN - [facility] [address] [id number] Application Development Team Lead: Carlee Ramos MD, Phone: [phone] Note: Persistent reduction for 3 months [...] found at [email or web address].org. 15 STAT BHAVANA [place] INDUSTRIAL TECHNOLOGY EDUCATION TEACHER PORT DRAW 16 Z51.11 C34.31 C78.7 17 [...] D deficiency has been defined by the [employer] [employer] and an Endocrine Society practice guideline as a level of serum 25-OH vitamin D less than 20 ng/mL (1,2). The Endocrine Society went on to further define vitamin D insufficiency as a level between 21 and 29 ng/mL (2). 1. IOM ([employer] [employer]). 2010. Dietary reference intakes for calcium and D. Dvei [place]: The National Academies Press. 2. Kip MF, Shawn LOVE, Sultana PEARL, et al. Evaluation, treatment, and prevention of vitamin D deficiency: an Endocrine Society clinical practice guideline. JCEM. 2010; 96(7):1911-30. Performed at: RN - [facility] [address] [id number] Application Development Team Lead: Carlee Ramos MD, Phone: [phone] Note: Persistent reduction for 3 months [...] D deficiency has been defined by the [place] [employer] and an Endocrine Society practice guideline as a level of serum 25-OH vitamin D less than 20 ng/mL (1,2). The Endocrine Society went on to further define vitamin D insufficiency as a level between 21 and 29 ng/mL (2). 1. IOM ([place] [employer]). 2010. Dietary reference intakes for calcium and D. Devi [place]: The National Academies Press. 2. Kip MF, Shawn [place], Sultana PEARL, et al. Evaluation, treatment, and prevention of vitamin D deficiency: an Endocrine Society clinical practice guideline. JCEM. 2010; 96(7):1911-30. Performed at: [facility] - [facility] [address] [id number] Application Development Team Lead: Carlee Ramos MD, Phone: [phone] Procedures Date Code Description Status 08/29/2018 95039 Irrigation Implanted Venous Access Device For Drug System Completed 08/29/2018 43615 Collect Blood Specimen From Completely Implant Venous Completed Access Dev 08/17/2018 12547 Theraputic Or Diagnostic Injection Completed 08/15/2018 03280 Bronchospasm Provocation Evaluation Multi Spirometric Completed Determinati 08/15/2018 45475 Spirometry Completed Medical Devices Description No Information Available Encounters Type Date Location Provider Dx Diagnosis Office Visit 11/27/2018 9:15a Infusion [facility] Bhavana Ragland, E86.0 Dehydration INDUSTRIAL TECHNOLOGY EDUCATION TEACHER C34.31 Malignant neoplasm of lower lobe, right bronchus or lung 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 Office Visit 11/22/2018 11:00a [facility]fusion [facility] [place] Z51.11 Encounter for Bhavana B., antineoplastic INDUSTRIAL TECHNOLOGY EDUCATION TEACHER chemotherapy C34.31 Malignant neoplasm of lower lobe, right bronchus or lung 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 Office Visit 11/01/2018 11:00a [facility]fusion [place] Z51.11 Encounter for Bhavana Ayala., antineoplastic INDUSTRIAL TECHNOLOGY EDUCATION TEACHER chemotherapy C34.31 Malignant neoplasm of lower lobe, right bronchus or lung 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 D64.81 Anemia due to antineoplastic chemotherapy Office Visit 10/11/2018 10:30a [facility] [place] Z51.11 Encounter for Bhavana Ayala., antineoplastic INDUSTRIAL TECHNOLOGY EDUCATION TEACHER chemotherapy C34.31 Malignant neoplasm of lower lobe, right bronchus or lung 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 D64.81 Anemia due to antineoplastic chemotherapy Office Visit 09/20/2018 10:30a [facility] [place] Z51.11 Encounter for Bhavana Ayala., antineoplastic IND[employer]RIAL TECHNOLOGY EDUCATION TEACHER chemotherapy C34.31 Malignant neoplasm of lower lobe, right bronchus or lung 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 D64.81 Anemia due to antineoplastic chemotherapy Office Visit 09/06/2018 7:30a [facility] [place]Bhavana[place], E86.0 Dehydration IND[employer]RIAL TECHNOLOGY EDUCATION TEACHER C34.31 Malignant neoplasm of lower lobe, right bronchus or lung 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 , INDUSTRIAL TECHNOLOGY EDUCATION TEACHER bronchus or lung 01/03/2019 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 EllynBhavana., INDUSTRIAL TECHNOLOGY EDUCATION TEACHER intrahepatic bile duct 01/03/2019 D64.81 Anemia due to antineoplastic chemotherapy [place] Bhavana Lucy., INDUSTRIAL TECHNOLOGY EDUCATION TEACHER 01/02/2019 C34.31 Malignant neoplasm of lower lobe, [...] 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 Elen Goodricharet , DO intrahepatic bile duct 12/06/2018 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 Oncology Nurse intrahepatic bile duct 12/06/2018 D64.81 Anemia due to antineoplastic chemotherapy Fede Goodricht , DO 12/06/2018 D64.81 Anemia due to antineoplastic chemotherapy Oncology Nurse 12/06/2018 E86.0 Dehydration Fede Goodricht, DO 12/06/2018 E86.0 Dehydration Oncology Nurse 11/27/2018 E86.0 Dehydration Bhavana Ragland, INDUSTRIAL TECHN[employer]Y [employer]UCATION TEACHER 11/27/2018 C34.31 Malignant neoplasm of lower lobe, right Bhavana Ragland , INDUSTRIAL TECHNOLOGY EDUCATION TEACHER bronchus or lung 11/27/2018 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 Bhavana Ragland, INDUSTRIAL TECHNOLOGY EDUCATION TEACHER intrahepatic bile duct 11/22/2018 Z51.11 Encounter for antineoplastic chemotherapy Bhavana Ragland, 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 Bhavana Ragland B., INDUSTRIAL TECHNOLOGY EDUCATION TEACHER intrahepatic bile 10/11/2018 D64.81 Anemia due to antineoplastic chemotherapy Bhavana Ragland., INDUSTRIAL TECHNOLOGY EDUCATION TEACHER 10/10/2018 C34.31 Malignant neoplasm of lower lobe, right Boufal, Wilma, DO bronchus or lung 10/10/2018 C34.31 Malignant neoplasm of lower lobe, right Oncology Nurse bronchus or lung 10/02/2018 C34.31 Malignant neoplasm of lower lobe, right Boufal, Wilma, DO bronchus or lung 10/02/2018 C34.31 Malignant neoplasm of lower lobe, right Oncology Nurse bronchus or lung 09/20/2018 Z51.11 Encounter for antineoplastic chemotherapy Bhavana Ragland., INDUSTRIAL TECHNOLOGY EDUCATION TEACHER 09/20/2018 C34.31 Malignant neoplasm of lower lobe, right EllynBhavana myers B. 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 Bhavana Ragland B., INDUSTRIAL TECHNOLOGY EDUCATION TEACHER intrahepatic bile 09/20/2018 D64.81 Anemia due to antineoplastic chemotherapy Bhavana Ragland., INDUSTRIAL TECHNOLOGY EDUCATION TEACHER 09/19/2018 C34.31 Malignant neoplasm of lower lobe, right Boufal, Wilma, DO bronchus or lung 09/19/2018 C34.31 Malignant neoplasm of lower lobe, right Oncology Nurse bronchus or lung 09/13/2018 C34.31 Malignant neoplasm of lower lobe, right Boufal, Wilma, DO bronchus or lung 09/13/2018 C34.31 Malignant neoplasm of lower lobe, right Oncology Nurse bronchus or lung 09/06/2018 E86.0 Dehydration Bhavana Ragland, INDUSTRIAL TECHNOLOGY EDUCATION TEACHER 09/06/2018 C34.31 Malignant neoplasm of lower lobe, right Bhavana Ragland , INDUSTRIAL TECHNOLOGY EDUCATION TEACHER bronchus or lung 09/06/2018 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 Bhavana Ragland, INDUSTRIAL TECHNOLOGY EDUCATION TEACHER intrahepatic bile 09/06/2018 D64.81 Anemia due to antineoplastic chemotherapy Bhavana Ragland, INDUSTRIAL TECHNOLOGY EDUCATION TEACHER 08/30/2018 Z51.11 Encounter for antineoplastic chemotherapy Bhavana Ragland, INDUSTRIAL TECHNOLOGY EDUCATION TEACHER 08/30/2018 C34.31 Malignant neoplasm of lower lobe, right Bhavana Ragland , INDUSTRIAL TECHNOLOGY EDUCATION TEACHER bronchus or lung 08/30/2018 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 She hardly have any side effects, is able to work. Willcontinue with the chemotherapy with additional Avastin. After 4 cycles she will be placed on a maintenance treatment Functional Status Description No Information Available Mental Status Description No Information Available Referrals Description No Information Available
--- OUTSIDE RECORDS SUMMARY | 2019-01-30 08:05 | XMS REPORT | Continuity of Care Document ---
:1960 External Reference #:[id number] Author Name Bhavana Ragland, NEUROSURGICAL NURSE Address [address] [place] [address] Care Team Providers Name Role Phone Danna Capps MD Care Team Information Laminator Unavailable Danna Capps MD Primary Care Physician Unavailable Payers Date Identification Numbers Payment Provider Subscriber Policy Number: [id number] [employer] Jenny Koch PayID: [id number] [address] [address] [place] [address] Problems Active Problems Provider Date Vitamin D deficiency Wilma Goodrich DO Onset: 08/28/2018 Malignant neoplasm of lower lobe, bronchus or Wilma Goodrich DO Onset: 04/2019 lung Screening for malignant neoplasm of colon Chirag Moran MD Onset: 06/01/2016 Digestive symptom Chirag Moran MD Onset: 06/01/2016 Family History Date Family Member(s) Observation Comments First Sister Diabetic Neuropothy Abd Social History Type Date Description Comments Sex Unknown Marital Status Home Environment Lives With Work Status Currently Working ETOH Use Currently consumes alcohol socially Tobacco Use Start: Unknown End: Patient is a former smoker Recreational Drug Use Denies Drug Use Allergies, Adverse Reactions, Alerts Active Allergies Reaction Severity Comments Date NKDA 08/17/2018 Decongestion make Pt feel high 08/17/2018 Inactive Allergies NKDA 06/01/2016 NKDA 08/17/2018 Medications Active Medications SIG Qnty Indications Ordering Date Provider Docu Soft 1 capsule by mouth 60caps Crystal, 10/11/2018 100mg twice a day as DO Wilma Capsules needed for constipation Senokot take 1-2 tablets by 60tabs Boufal, 10/11/2018 8.6mg Tablets mouth twice daily Wilma, DO as needed for constipation Emla apply 20 min prior 75gm Boufal, 08/29/2018 2.5-2.5% Cream to port access Wilma, DO Decadron 1 tabl by mouth 6tabs Boufal, 08/28/2018 4mg Tablets twice a day start Wilma, DO day before chmo Pantoprazole Sodium 1 tabl by mouth 90tabs Boufal, 08/28/2018 every day Wilma, DO 40mg Tablets Ondansetron take one tablet by 30tabs Boufal, 08/28/2018 8mg Tablets mouth every 8 hours Wilma, DO Dispers as needed for nausea Folic Acid 1 tabl by mouth 30tabs Boufal, 08/19/2018 1mg Tablets every day Wilma, DO Ergocalciferol 1 cap by mouth 6caps Boufal, 08/18/2018 every week [place], [place] [id number] Capsules Bupropion Rom, Hydrochloride ER (XL) Gypsy NEUROSURGICAL NURSE 300mg Tablets ER 24HR Symbicort [address] [facility], 80-4.5mcg/Dara Garcia M.D. Aerosol Meloxicam 1 tablet daily Unknown 15mg Tablets Celexa 1 by mouth every Unknown 20mg Tablets day History Medications Golytely drink half the 4000ml Z12.11 Chirag Moran MD 06/01/2016 - 236gm Solution evening before 08/17/2018 Rec and half the morning of the procedure (1 cup every 10') Dulcolax 4 tablets taken a 4tabs Z12.11 Chirag Moran MD 06/01/2016 - 5mg Tablets DR 8pm the day 08/17/2018 before the procedure Magnesium Citrate 1 bottle po x one 296ml Z12.11 Chirag Moran MD 06/01/2016 - as directed 08/17/2018 1.745GM/30ML Solution Colestipol HCL 1 tab by mouth 270tabs R19.4 Chirag Moran MD 06/01/2016 - 1gm three times a day 08/17/2018 Tablets with meals and avoid taking with other meds Provera 1 po qd Unknown - 2.5mg Tablets 08/17/2018 Citalopram Unknown - Hydrobromide 08/17/2018 20mg Tablets Medications Administered in Office Medication SIG Qnty Indications Ordering Provider Date Vitamin B12 Injection 1000 Wilma Goodrich, 08/17/2018 mcg/Ml Injection Vital Signs Date Vital Result Comment 11/27/2018 8:57am BP Systolic 138 mmHg BP Diastolic 99 mmHg Body Temperature 98.2 F Heart Rate 81 /min Respiratory Rate 20 /min Weight 217.50 lb O2 % BldC Oximetry 98 % Pain Level 0 11/22/2018 10:23am BP Systolic 145 mmHg L BP Diastolic 99 mmHg L Body Temperature 97.3 F Heart Rate 82 /min Respiratory Rate 18 /min Weight 219.00 lb O2 % BldC Oximetry 99 % Pain Level 0 11/14/2018 8:34am BP Systolic 145 mmHg BP Diastolic 91 mmHg Body Temperature 97.9 F Heart Rate 85 /min Weight 216.50 lb O2 % BldC Oximetry 99 % Pain Level 0 11/01/2018 11:00am BP Systolic 143 mmHg BP Diastolic 97 mmHg Body Temperature 97.8 F Heart Rate 86 /min Respiratory Rate 20 /min Weight 215.38 lb O2 % BldC Oximetry 98 % Pain Level 0 10/11/2018 10:40am BP Systolic 155 mmHg L BP Diastolic 98 mmHg L Body Temperature 97.5 F Heart Rate 83 /min Respiratory Rate 18 /min Weight 210.12 lb O2 % BldC Oximetry 98 % Pain Level 0 09/20/2018 10:48am BP Systolic 146 mmHg BP Diastolic 95 mmHg Body Temperature 97.8 F Heart Rate 67 /min Respiratory Rate 20 /min Weight 208.00 lb O2 % BldC Oximetry 98 % Pain Level 0 09/06/2018 7:44am BP Systolic 118 mmHg BP Diastolic 78 mmHg Body Temperature 98.2 F Heart Rate 80 /min Respiratory Rate 20 /min Weight 209.25 lb O2 % BldC Oximetry 97 % Pain Level 0 08/30/2018 10:40am BP Systolic 139 mmHg Left BP Diastolic 84 mmHg Left Body Temperature 97.7 F Heart Rate 66 /min Respiratory Rate 18 /min Weight 209.50 lb O2 % BldC Oximetry 98 % Pain Level 0 08/28/2018 7:46am BP Systolic 117 mmHg BP Diastolic 79 mmHg Body Temperature 98.7 F Heart Rate 68 /min Respiratory Rate 17 /min Weight 212.12 lb O2 % BldC Oximetry 97 % Pain Level 0 08/17/2018 8:42am BP Systolic 133 mmHg BP Diastolic 87 mmHg Body Temperature 98.6 F Heart Rate 64 /min Respiratory Rate 16 /min Height 61.25 inches 5'1.25" Weight 212.00 lb BMI (Body Mass Index) 39.7 kg/m2 BSA (Body Surface Area) 1.94 m2 Burr body weight in kilograms 48 kg O2 % BldC Oximetry 96 % Pain Level 0 06/01/2016 9:11am BP Systolic Sitting Left Arm 142 mmHg BP Diastolic Sitting Left Arm 78 mmHg Heart Rate 63 /min Respiratory Rate 16 /min Height 62 inches 5'2" Weight 237.00 lb BMI (Body Mass Index) 43.3 kg/m2 BSA (Body Surface Area) 2.05 m2 Burr body weight in kilograms 50 kg Results Test Date Facility Test Result H/L Range Note CBC 11/27/2018 [facility] White Blood 4.0 K/uL Normal 3.1-10.7 1 W/Automated [address] [place] [place] [address] [phone] Red Blood Count 3.96 M/uL Normal 3.90-5.40 [...] 40.4-72.8 Lymph % 12.3 % Low 20.0-42.0 [place] % 6.0 % Normal 4.3-13.2 Eo% 1.3 % Normal 0.0-6.6 Bas% 0.8 % Normal 0.0-1.1 Immature Grans 0.5 % Normal 0.0-5.0 NRBC % 0.0 /100WBC < 10/ 100 WBC Neut# 3.17 K/uL Normal 1.8-7.0 Lymph # 0.49 K/uL Low 1.0-4.0 [place] # 0.24 K/uL Low 0.3-0.9 Eos # 0.05 K/uL Normal 0.0-0.5 Baso # 0.03 K/uL Normal 0.0-0.1 Immature Grans Absolute 0.02 K/uL NRBC # 0.00 K/uL Comprehensive 11/27/2018 [facility] Glucose 78 mg/dL Normal 74-106 Metabolic Panel [address] [place] [address] [phone] BUN 21 mg/dL High 7-18 Creatinine 0.9 mg/dL Normal 0.6-1.3 Glom Filtration Rate, Estimate >60 mL/min >60 If >60 mL/min >60 2 BUN/Creat 23.3 ratio Sodium 139 mmol/L Normal [...] 145 U/L High 45-117 Laboratory test 11/27/2018 [facility] Magnesium 2.4 mg/dL Normal 1.8-2.4 [address] [place] [address] [phone] CBC W/Automated 11/21/2018 [facility] White Blood 4.3 K/uL Normal 3.1-10.7 [address] [place] [address] [phone] Red Blood Count 3.63 M/uL Low 3.90-5.40 [...] 40.4-72.8 Lymph % 9.6 % Low 20.0-42.0 [place] % 6.1 % Normal 4.3-13.2 Eo% 0.0 % Normal 0.0-6.6 Bas% 0.2 % Normal 0.0-1.1 Immature Grans 1.2 % Normal 0.0-5.0 NRBC % 0.0 /100WBC < 10/ 100 WBC Neut# 3.56 K/uL Normal 1.8-7.0 Lymph # 0.41 K/uL Low 1.0-4.0 [place] # 0.26 K/uL Low 0.3-0.9 Eos # 0.00 K/uL Normal 0.0-0.5 Baso # 0.01 K/uL Normal 0.0-0.1 Immature Grans Absolute 0.05 K/uL NRBC # 0.00 K/uL Comprehensive Metabolic 11/21/2018 [facility] Glucose 209 mg/dL High 74-106 Panel [address] [place] [address] [phone] BUN 17 mg/dL Normal 7-18 Creatinine 1.0 mg/dL Normal 0.6-1.3 Glom Filtration Rate, Estimate >60 mL/min >60 If >60 mL/min >60 5 BUN/Creat 17.0 ratio Sodium 139 mmol/L Normal [...] 12-78 Alkaline Phosphatase 153 U/L High 45-117 Laboratory test 11/21/2018 [facility] Magnesium 2.3 mg/dL Normal 1.8-2.[address] [place] [address] [phone] Slide Review 11/21/2018 [facility] Slide Review (SEE [address] NOTE) [place] [address] [phone] CBC W/Automated 10/31/2018 [facility] White Blood 4.2 K/uL Normal 3.1-10.7 [address] [place] [address] [phone] Red Blood Count 3.93 M/uL Normal 3.90-5.40 [...] 40.4-72.8 Lymph % 10.3 % Low 20.0-42.0 [place] % 7.9 % Normal 4.3-13.2 Eo% 0.0 % Normal 0.0-6.6 Bas% 0.2 % Normal 0.0-1.1 Immature Grans 1.0 % Normal 0.0-5.0 NRBC % 0.0 /100WBC < 10/ 100 WBC Neut# 3.38 K/uL Normal 1.8-7.0 Lymph # 0.43 K/uL Low 1.0-4.0 [place] # 0.33 K/uL Normal 0.3-0.9 Eos # 0.00 K/uL Normal 0.0-0.5 Baso # 0.01 K/uL Normal 0.0-0.1 Immature Grans Absolute 0.04 K/uL NRBC # 0.00 K/uL Comprehensive Metabolic 10/31/2018 [facility] Glucose 112 mg/dL High 74-106 Panel [address] [place] [address] [phone] BUN 15 mg/dL Normal 7-18 Creatinine 0.9 mg/dL Normal 0.6-1.3 Glom Filtration Rate, Estimate >60 mL/min >60 If >60 mL/min >60 8 BUN/Creat 16.6 ratio Sodium 136 mmol/L Normal [...] 170 U/L High 45-117 Laboratory test 10/31/2018 [facility] Magnesium 2.3 mg/dL Normal 1.8-2.4 9 finding [address] [place] [address] [phone] Differential-WB 10/10/2018 [facility] Total Cells 100 C Confirm [address] [place] Counted #[place] [address] [phone] Neutrophils% 91 % High 33-73 Lymph% 4 % Low 20-42 Monocyte% 3 % Normal 0-10 Eosinophil% 1 % Normal 0-5 Basophil% 1 % Normal 0-2 Platelet Estimate NORMAL Polychromasia 0-1+ Anisocytosis 0-1+ Differential Comment LARGE PLATELETS <SEE NOTE> 10 Laboratory test 10/10/2018 [facility] Path Review: <pending> finding [address] [place] [address] [phone] Slide Review 10/10/2018 [facility] Slide Review DIFF ORDERED [address] [place] [address] [phone] Laboratory test 10/10/2018 [facility] Magnesium 2.2 mg/dL Normal 1.8- finding [address] 2.4 [place] [address] [phone] Comprehensive 10/10/2018 [facility] Glucose 259 mg/dL High 74-1 Metabolic Panel [address] [place] [address] [phone] BUN 12 mg/dL Normal 7-18 Creatinine 0.9 mg/dL Normal 0.6-1.3 Glom Filtration Rate, Estimate >60 mL/min >60 If >60 mL/min >60 11 BUN/Creat 13.3 ratio Sodium 136 mmol/L Normal [...] 12-78 Alkaline Phosphatase 132 U/L High 45-117 CBC W/Automated 10/10/2018 [facility] White Blood 2.9 K/uL Low 3.1-10.[address] Count [place] [address] [phone] Red Blood Count 3.91 M/uL Normal 3.90-5.40 [...] 40.4-72.8 Lymph % 5.6 % Low 20.0-42.0 [place] % 4.2 % Low 4.3-13.2 Eo% 0.0 % Normal 0.0-6.6 Bas% 0.3 % Normal 0.0-1.1 Immature Grans 0.7 % Normal 0.0-5.0 NRBC % 0.0 /100WBC < 10/ 100 WBC Neut# 2.56 K/uL Normal 1.8-7.0 Lymph # 0.16 K/uL Low 1.0-4.0 [place] # 0.12 K/uL Low 0.3-0.9 Eos # 0.00 K/uL Normal 0.0-0.5 Baso # 0.01 K/uL Normal 0.0-0.1 Immature Grans Absolute 0.02 K/uL NRBC # 0.00 K/uL CBC W/Automated 09/19/2018 [facility] White Blood 4.5 K/uL Normal 3.1-10.[address] Count [place], [place] [phone] Red Blood Count 4.19 M/uL Normal 3.90-5.40 [...] 40.4-72.8 Lymph % 8.0 % Low 20.0-42.0 [place] % 4.5 % Normal 4.3-13.2 Eo% 0.0 % Normal 0.0-6.6 Bas% 0.4 % Normal 0.0-1.1 Immature Grans 1.3 % Normal 0.0-5.0 NRBC % 0.0 /100WBC < 10/ 100 WBC Neut# 3.85 K/uL Normal 1.8-7.0 Lymph # 0.36 K/uL Low 1.0-4.0 [place] # 0.20 K/uL Low 0.3-0.9 Eos # 0.00 K/uL Normal 0.0-0.5 Baso # 0.02 K/uL Normal 0.0-0.1 Immature Grans Absolute 0.06 K/uL NRBC # 0.00 K/uL Comprehensive Metabolic 09/19/2018 [facility] Glucose 191 mg/dL High 74-106 Panel [address] [place], [place] [address] [phone] BUN 11 mg/dL Normal 7-18 Creatinine 0.9 mg/dL 0.6-1.3 Glom Filtration Rate, Estimate >60 mL/min >60 If >60 mL/min >60 12 BUN/Creat 12.2 ratio Sodium 135 mmol/L Low [...] mg/dL Normal 1.8-2.[address] [place], [place] [phone] [phone] CBC W/Automated 09/13/2018 [facility] White Blood 3.5 K/uL Normal 3.1-10.[address] [place] [address] [phone] Red Blood Count 3.74 M/uL Low 3.90-5.40 [...] 40.4-72.8 Lymph % 18.7 % Low 20.0-42.0 [place] % 12.1 % Normal 4.3-13.2 Eo% 1.2 % Normal 0.0-6.6 Bas% 0.3 % Normal 0.0-1.1 Immature Grans 0.3 % Normal 0.0-5.0 NRBC % 0.0 /100WBC < 10/ 100 WBC Neut# 2.34 K/uL Normal 1.8-7.0 Lymph # 0.65 K/uL Low 1.0-4.0 [place] # 0.42 K/uL Normal 0.3-0.9 Eos # 0.04 K/uL Normal 0.0-0.5 Baso # 0.01 K/uL Normal 0.0-0.1 Immature Grans Absolute 0.01 K/uL NRBC # 0.00 K/uL CBC W/Automated 09/06/2018 [facility] White 4.1 K/uL Normal 3.1-10.7 [address] [place] [address] Count [phone] Red Blood Count 3.76 M/uL Low 3.90-5.40 [...] 40.4-72.8 Lymph % 17.4 % Low 20.0-42.0 [place] % 12.0 % Normal 4.3-13.2 Eo% 1.2 % Normal 0.0-6.6 Bas% 0.5 % Normal 0.0-1.1 Immature Grans 1.2 % Normal 0.0-5.0 NRBC % 0.0 /100WBC < 10/ 100 WBC Neut# 2.77 K/uL Normal 1.8-7.0 Lymph # 0.71 K/uL Low 1.0-4.0 [place] # 0.49 K/uL Normal 0.3-0.9 Eos # 0.05 K/uL Normal 0.0-0.5 Baso # 0.02 K/uL Normal 0.0-0.1 Immature Grans Absolute 0.05 K/uL NRBC # 0.00 K/uL Comprehensive 09/06/2018 [facility] Glucose 84 mg/dL Normal 74-106 Metabolic Panel [address] [place] [address] [phone] BUN 9 mg/dL Normal 7-18 Creatinine 0.7 mg/dL Normal 0.6-1.3 Glom Filtration Rate, Estimate >60 mL/min >60 If >60 mL/min >60 14 BUN/Creat 12.8 ratio Sodium 133 mmol/L Low [...] Magnesium 2.5 mg/dL High 1.8-2.4 finding [address] [place], [place] [address] [phone] Laboratory test 08/29/2018 [facility] Ferritin 228 ng/mL Normal 8-252 15 finding [address] [place], [place] [address] [phone] Iron-Tibc-%Sat 08/29/2018 [facility] Serum Iron 26 g/dL Low 50-170 [address] [place], [place] [address] [phone] Total Iron Binding Capacity 231 g/dL Low 250-450 Transferrin %Saturation 11 % Low 12-57 Comprehensive Metabolic 08/29/2018 [facility] Glucose 163 mg/dL High 74-106 Panel [address] [place], [place] [address] [phone] BUN 17 mg/dL Normal 7-18 Creatinine 0.9 mg/dL Normal 0.6-1.3 Glom Filtration Rate, Estimate >60 mL/min >60 If >60 mL/min >60 16 BUN/Creat 18.8 ratio Sodium 135 mmol/L Low [...] 12-78 Alkaline Phosphatase 91 U/L Normal 45-117 CBC W/Automated 08/29/2018 [facility] White Blood 9.3 K/uL Normal 3.1-10.[address] [place] [address] [phone] Red Blood Count 4.07 M/uL Normal 3.90-5.40 [...] 40.4-72.8 Lymph % 21.8 % Normal 20.0-42.0 [place] % 8.4 % Normal 4.3-13.2 Eo% 2.3 % Normal 0.0-6.6 Bas% 0.9 % Normal 0.0-1.1 Immature Grans 0.6 % Normal 0.0-5.0 NRBC % 0.0 /100WBC < 10/ 100 WBC Neut# 6.13 K/uL Normal 1.8-7.0 Lymph # 2.02 K/uL Normal 1.0-4.0 [place] # 0.78 K/uL Normal 0.3-0.9 Eos # 0.21 K/uL Normal 0.0-0.5 Baso # 0.08 K/uL Normal 0.0-0.1 Immature Grans Absolute 0.06 K/uL NRBC # 0.00 K/uL Laboratory 08/29/2018 [facility] Vitamin 24.1 Low 30.0-100.0 17 test finding [address] D,25-Hydroxy ng/[place] [address] [phone] Vitamin B12 08/29/2018 [facility] Vitamin B12 719 Normal 193-[address] pg/mL [place], [place] [phone] [phone] Folic Acid > 20.0 ng/mL High 3.1-17.5 Vitamin B12 And 08/17/2018 [facility] Vitamin B12 515 pg/mL Normal 193-[address] [place], [place] [address] [phone] Folic Acid 9.7 ng/mL Normal 3.1-17.5 Laboratory 08/17/2018 [facility] Vitamin 15.5 Low 30.0-100.0 18 test finding [address] D,25-Hydroxy ng/[place] [address] [phone] CBC 08/17/2018 [facility] White Blood 9.1 K/uL Normal 3.1-10.7 W/Automated [address] [place] [place] [address] [phone] Red Blood Count 4.33 M/uL Normal 3.90-5.40 [...] 40.4-72.8 Lymph % 23.4 % Normal 20.0-42.0 [place] % 7.1 % Normal 4.3-13.2 Eo% 1.5 % Normal 0.0-6.6 Bas% 0.7 % Normal 0.0-1.1 Immature Grans 0.4 % Normal 0.0-5.0 NRBC % 0.0 /100WBC < 10/ 100 WBC Neut# 6.06 K/uL Normal 1.8-7.0 Lymph # 2.12 K/uL Normal 1.0-4.0 [place] # 0.64 K/uL Normal 0.3-0.9 Eos # 0.14 K/uL Normal 0.0-0.5 Baso # 0.06 K/uL Normal 0.0-0.1 Immature Grans Absolute 0.04 K/uL NRBC # 0.00 K/uL TSH Reflex 06/07/2016 [facility] Thyroid Stim 1.99 uIU/mL Normal 0.30-4.20 19 FT4 And/Or [address] Hormone FT3 [place] [address] [phone] Reflex add FT3? Y Reflex add FT4? Y Celiac 06/07/2016 [facility] Immunoglobulin A 270 mg/dL Normal 87-352 [address] Comp [address] [place] [address] [phone] Antigliadin Abs, IgG 1 units Normal 0-19 20 Antigliadin Abs, IgA 4 units Normal 0-19 21 Endomysial IgA Antibody Negative Normal Negative t-Transglutaminase IgA <2 U/mL Normal 0-3 22 t-Transglutaminase IgG <2 U/mL Normal 0-5 23 C-Reactive 06/07/2016 [facility] C-Reactive 4.70 Normal <3.0 Protein,Cardiac [address] Protein,Cardiac mg/[place] [address] [phone] Reflex add FT3? Y Reflex add FT4? Y Laboratory 06/07/2016 [facility] Sedimentation Rate 13 mm/hr Normal 0-30 test finding [address] [place] [address] [phone] Laboratory 06/06/2016 [facility] C. Difficile Toxin NEGATIVE 24, test finding [address] A/B FOR C. 25 [place] [address] <SEE NOTE> [phone] Ova & 06/06/2016 [facility] Cryptosporidium NEGATIVE [address] Specific [place] [address] <SEE NOTE> Screen [phone] Giardia Specific Antigen NEGATIVE FOR WENDIE <SEE NOTE> 27 Laboratory test 06/06/2016 [facility] Calprotectin, 27 ug/g 0-120 28, [address] Fecal [place], [place] [address] [phone] Fecal Fat, 06/06/2016 [facility] Fats, Neutral Normal . [address] [place] [address] [phone] Fats, Total Normal . 31 Stool Culture 06/06/2016 [facility] Stool Culture NO ENTERIC PATHO [address] <SEE NOTE> [place], [place] [address] [phone] . ................ <SEE NOTE> Normal 33 Note: INCLUDES TESTING <SEE NOTE> Normal 34 . PLESIOMONAS, CAM <SEE NOTE> Normal 35 . ................ <SEE NOTE> Normal 36 . YERSINIA AND VIB <SEE NOTE> Normal 37 . SHOULD BE REQUES <SEE NOTE> Normal 38 Shiga Toxin 1 Antigen SHIGA TOXIN 1 NO <SEE NOTE> 39 Shiga Toxin 2 Antigen SHIGA TOXIN 2 NO <SEE NOTE> 40 Laboratory test 06/06/2016 [facility] Pancreatic > 500.0 Normal >[address] Elastase (Pe-1) ug/[place] [address] [phone] 1 Z51.11 C34.31 C78.7 E86.0 E56.9 E55.9 D64.81 2 Note: Persistent reduction for 3 months or more in an eGFR <60 mL/min/1.73 m2 defines CKD. Patients with eGFR values >/=60 mL/min/1.73 m2 may also have CKD if evidence of persistent proteinuria is present. The original MDRD equation for estimated GFR is not valid for patients less than 18 years of age. Additional information may be found at [email or web address]. 3 STAT [facility] NEUROSURGICAL NURSE PORT DRAW 4 Z51.11 C34.31 C78.7 5 Note: Persistent reduction for 3 months or more in an eGFR <60 mL/min/1.73 m2 defines CKD. Patients with eGFR values >/=60 mL/min/1.73 m2 may also have CKD if evidence of persistent proteinuria is present. The original MDRD equation for estimated GFR is not valid for patients less than 18 years of age. Additional information may be found at [email or web address]. 6 Instrument flagged sample for slide review. Less than 10% Bands seen, no other immature WBC's seen. RBC morphology essentially normal. Platelet estimate = NORMAL 7 C34.31 8 Note: Persistent reduction for 3 months or more in an eGFR <60 mL/min/1.73 m2 defines CKD. Patients with eGFR values >/=60 mL/min/1.73 m2 may also have CKD if evidence of persistent proteinuria is present. The original MDRD equation for estimated GFR is not valid for patients less than 18 years of age. Additional information may be found at [email or web address]. [address] GOODRICH 10 LARGE PLATELETS PRESENT. 11 Note: Persistent reduction for 3 months or more in an eGFR <60 mL/min/1.73 m2 defines CKD. Patients with eGFR values >/=60 mL/min/1.73 m2 may also have CKD if evidence of persistent proteinuria is present. The original MDRD equation for estimated GFR is not valid for patients less than 18 years of age. Additional information may be found at [email or web address]. 12 Note: Persistent reduction for 3 months or more in an eGFR <60 mL/min/1.73 m2 defines CKD. Patients with eGFR values >/=60 mL/min/1.73 m2 may also have CKD if evidence of persistent proteinuria is present. The original MDRD equation for estimated GFR is not valid for patients less than 18 years of age. Additional information may be found at [email or web address]. 13 C34.31 E86.0 14 Note: Persistent reduction for 3 months or more in an eGFR <60 mL/min/1.73 m2 defines CKD. Patients with eGFR values >/=60 mL/min/1.73 m2 may also have CKD if evidence of persistent proteinuria is present. The original MDRD equation for estimated GFR is not valid for patients less than 18 years of age. Additional information may be found at [email or web address]. 15 E56.9 16 Note: Persistent reduction for 3 months or more in an eGFR <60 mL/min/1.73 m2 defines CKD. Patients with eGFR values >/=60 mL/min/1.73 m2 may also have CKD if evidence of persistent proteinuria is present. The original MDRD equation for estimated GFR is not valid for patients less than 18 years of age. Additional information may be found at [email or web address]. 17 Vitamin D deficiency has been defined by the [place] of [employer] and an Endocrine Society practice guideline as a level of serum 25-OH vitamin D less than 20 ng/mL (1,2). The Endocrine Society went on to further define vitamin D insufficiency as a level between 21 and 29 ng/mL (2). 1. IOM ([place] of [employer]). 2010. Dietary reference intakes for calcium and D. [place]: The National Academies Press. 2. Shawn Nicole, Sultana PEARL, et al. Evaluation, treatment, and prevention of vitamin D deficiency: an Endocrine Society clinical practice guideline. JCEM. 2010; 96(7):1911-. Performed at: [facility] [id number] Division Controller: Carlee Ramos MD, Phone: [phone] 18 Vitamin D deficiency has been defined by the [place] of [employer] and an Endocrine Society practice guideline as a level of serum 25-OH vitamin D less than 20 ng/mL (1,2). The Endocrine Society went on to further define vitamin D insufficiency as a level between 21 and 29 ng/mL (2). 1. IOM ([place] of [employer]). 2010. Dietary reference intakes for calcium and D. [place]: The National Academies Press. 2. Shawn Nicole, Sultana PEARL, et al. Evaluation, treatment, and prevention of vitamin D deficiency: an Endocrine Society clinical practice guideline. JCEM. 2010; 96(7):1911-. Performed at: [facility] [id number] Division Controller: Carlee Ramos MD, Phone: [phone] 19 Z02.9 R19.4 20 Negative 0 - 19 Weak Positive 20 - 30 Moderate to Strong Positive >30 21 Negative 0 - 19 Weak Positive 20 - 30 Moderate to Strong Positive >30 22 Negative 0 - 3 Weak Positive 4 - 10 Positive >10 Tissue Transglutaminase (tTG) has been identified as the endomysial antigen. Studies have demonstr- ated that endomysial IgA antibodies have over 99% specificity for gluten sensitive enteropathy. 23 Negative 0 - 5 Weak Positive 6 - 9 Positive >9 Performed at: [address] [id number] Division Controller: Carlee Ramos MD, Phone: [phone] 24 Z02.9 25 NEGATIVE FOR C. DIFFICILE TOXIN A/B. CORRELATE RESULTS WITH CLINICAL CONDITION. 26 NEGATIVE FOR CRYPTOSPORIDIUM SPECIFIC ANTIGEN 27 NEGATIVE FOR GIARDIA SPECIFIC ANTIGEN. The specimen will be held for 5 days. Additional testing may be performed upon request if the antigen tests are negative, and the patient is still symptomatic or has traveled to an endemic region. 28 R19.4 29 Concentration Interpretation Follow-Up <16 - 50 ug/g Normal None >50 -120 ug/g Borderline Re-evaluate in 4-6 weeks >120 ug/g Abnormal Repeat as clinically indicated Performed at: [address] [id number] Division Controller: Carlee Ramos MD, Phone: [phone] Performed at: [address] [id number] Division Controller: Sriram Bruno MD, Phone: [phone] 30 Normal (<60 Droplets/HPF) 31 Normal (<100 Droplets/HPF) 32 NO ENTERIC PATHOGENS ISOLATED 33 ................................................... 34 INCLUDES TESTING FOR SALMONELLA, SHIGELLA, AEROMONAS, 35 PLESIOMONAS, CAMPYLOBACTER, AND E. COLI 0157:H7 36 ................................................... 37 YERSINIA AND VIBRIO ARE NOT ROUTINELY SCREENED FOR AND 38 SHOULD BE REQUESTED SEPARATELY 39 SHIGA TOXIN 1 NOT DETECTED 40 SHIGA TOXIN 2 NOT DETECTED 41 INFCE Result Units: ug Elast./g Severe Pancreatic Insufficiency: <100 Moderate Pancreatic Insufficiency: 100 - 200 Normal: >200 Performed at: [address] [id number] Division Controller: Sriram Bruno MD, Phone: [phone] Procedures Date Code Description Status 08/29/2018 36921 Irrigation Implanted Venous Access Device For Drug System Completed 08/29/2018 67349 Collect Blood Specimen From Completely Implant Venous Completed Access Dev 08/17/2018 90573 Theraputic Or Diagnostic Injection Completed 08/15/2018 57792 Bronchospasm Provocation Evaluation Multi Spirometric Completed Determinati 08/15/2018 14427 Spirometry Completed 06/30/2016 37726 Colonoscopy With Biopsy Completed Encounters Type Date Location Provider Dx Diagnosis Office Visit 11/01/2018 [facility] Albert LeaBhavana Z51.11 Encounter for 11:00a B., NEUROSURGICAL NURSE antineoplastic chemotherapy C34.31 Malignant neoplasm of lower lobe, right bronchus or lung 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 D64.81 Anemia due to antineoplastic chemotherapy Office Visit 10/11/2018 10:30a [facility] Ellyn Z51.11 Encounter for Bhavana Ayala., antineoplastic NEUROSURGICAL NURSE chemotherapy C34.31 Malignant neoplasm of lower lobe, right bronchus or lung 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 D64.81 Anemia due to antineoplastic chemotherapy Office Visit 09/20/2018 10:30a [facility] Ellyn Z51.11 Encounter for Bhavana Ayala., antineoplastic NEUROSURGICAL NURSE chemotherapy C34.31 Malignant neoplasm of lower lobe, right bronchus or lung 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 D64.81 Anemia due to antineoplastic chemotherapy Office Visit 09/06/2018 7:30a [facility] Bhavana RaglandYaakov, E86.0 Dehydration NEUROSURGICAL NURSE C34.31 Malignant neoplasm of lower lobe, right bronchus or lung 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 D64.81 Anemia due to antineoplastic chemotherapy Office Visit 08/30/2018 9:00a [facility] Ellyn Z51.11 Encounter for Bhavana Ayala., antineoplastic NEUROSURGICAL NURSE chemotherapy C34.31 Malignant neoplasm of lower lobe, [...] lobe, right bronchus or lung Office Visit 06/01/2016 9:00a PRIMITIVO Moran MD R19.4 Change in bowel habit Z12.11 Encounter for screening for malignant neoplasm of colon Plan of Treatment Future Appointment(s):12/13/2018 10:30 am - Infusion Chair 2 at Infusion Knwtor3612/12/2018 3:30 pm - Oncology Nurse at Oncology Hdmlow0512/05/2018 3:30 pm - Oncology Nurse at Oncology Eecqkt7712/13/2018 10:30 am - Wilma Goodrich DO at Oncology Cwhgmf3312/18/2018 1:30 pm - Oncology Nurse at Oncology [id number] 7:45 am - Wilma Goodrich DO at Oncology Office
--- OUTSIDE RECORDS SUMMARY | 2019-01-30 08:05 | XMS REPORT | Continuity of Care Document ---
:1960 External Reference #:[id number] Author Name Bhavana Ragland, [employer] SUPERVISOR Address [address] [place] [place] [address] Care Team Providers Name Role Phone Danna Capps MD Care Team Information Coroner Forensic Technician Unavailable Danna Capps MD Primary Care Physician Unavailable Payers Date Identification Numbers Payment Provider Subscriber Policy Number: [id number] [employer] Jenny Koch PayID: [id number] [address] [address] [place] [address] Problems Active Problems Provider Date Vitamin D [...] 6caps Boufal, 08/18/2018 every week [place], [place] [address]Chpg Capsules Bupropion Rom, Hydrochloride ER (XL) Gypsy [employer] SUPER[employer]OR 300mg Tablets ER 24HR Symbicort 2 puffs PO bid Mcmullen, 80-4.5mcg/Dara Garcia M.D. Aerosol Meloxicam 1 tablet [...] kg/m2 BSA (Body Surface Area) 1.94 m2 [place] body weight in kilograms 48 kg O2 % BldC Oximetry 96 % Pain Level 0 06/01/2016 9:11am BP Systolic Sitting Left Arm 142 mmHg BP Diastolic Sitting Left Arm 78 mmHg Heart Rate 63 /min Respiratory Rate 16 /min Height 62 inches 5'2" Weight 237.00 lb BMI (Body Mass Index) 43.3 kg/m2 BSA (Body Surface Area) 2.05 m2 [place] body weight in kilograms 50 kg Results Test Date Facility Test Result H/L Range Note CBC 11/27/2018 [facility] White Blood 4.0 K/uL Normal 3.1-10.7 1 W/Automated [address] [place] [address] [phone] Red Blood Count 3.96 M/uL Normal 3.90-5.40 [...] 40.4-72.8 Lymph % 12.3 % Low 20.0-42.0 [place] % 6.0 % Normal 4.3-13.2 Eo% 1.3 % Normal 0.0-6.6 Bas% 0.8 % Normal 0.0-1.1 Immature Grans 0.5 % Normal 0.0-5.0 NRBC % 0.0 /100WBC < 10/ 100 WBC Neut# 3.17 K/uL Normal 1.8-7.0 Lymph # 0.49 K/uL Low 1.0-4.0 [place] # 0.24 K/uL Low 0.3-0.9 Eos # 0.05 K/uL Normal 0.0-0.5 Baso # 0.03 K/uL Normal 0.0-0.1 Immature Grans Absolute 0.02 K/uL NRBC # 0.00 K/uL Comprehensive 11/27/2018 [facility] Glucose 78 mg/dL Normal 74-106 Metabolic Panel [address] [place] [address] [phone] BUN 21 mg/dL High 7-18 Creatinine 0.9 [...] 145 U/L High 45-117 Laboratory test 11/27/2018 [facility] Magnesium 2.4 mg/dL Normal 1.8-2.4 [address] [place] [address] [phone] CBC W/Automated 11/21/2018 [facility] White Blood 4.3 K/uL Normal 3.1-10.[address] [place] [address] [phone] Red Blood Count 3.63 M/uL Low 3.90-5.40 [...] 40.4-72.8 Lymph % 9.6 % Low 20.0-42.0 [place] % 6.1 % Normal 4.3-13.2 Eo% 0.0 % Normal 0.0-6.6 Bas% 0.2 % Normal 0.0-1.1 Immature Grans 1.2 % Normal 0.0-5.0 NRBC % 0.0 /100WBC < 10/ 100 WBC Neut# 3.56 K/uL Normal 1.8-7.0 Lymph # 0.41 K/uL Low 1.0-4.0 [place] # 0.26 K/uL Low 0.3-0.9 Eos # 0.00 K/uL Normal 0.0-0.5 Baso # 0.01 K/uL Normal 0.0-0.1 Immature Grans Absolute 0.05 K/uL NRBC # 0.00 K/uL Comprehensive Metabolic 11/21/2018 [facility] Glucose 209 mg/dL High 74-106 Panel [address] [place] [address] [phone] BUN 17 mg/dL Normal 7-18 Creatinine 1.0 [...] 153 U/L High 45-117 Laboratory test 11/21/2018 [facility] Magnesium 2.3 mg/dL Normal 1.8-2.[address] [place] [address] [phone] Slide Review 11/21/2018 [facility] Slide Review (SEE [address] NOTE) [place] [address] [phone] CBC W/Automated 10/31/2018 [facility] White Blood 4.2 K/uL Normal 3.1-10.7 [address] [place] [address] [phone] Red Blood Count 3.93 M/uL Normal 3.90-5.40 [...] 40.4-72.8 Lymph % 10.3 % Low 20.0-42.0 [place] % 7.9 % Normal 4.3-13.2 Eo% 0.0 % Normal 0.0-6.6 Bas% 0.2 % Normal 0.0-1.1 Immature Grans 1.0 % Normal 0.0-5.0 NRBC % 0.0 /100WBC < 10/ 100 WBC Neut# 3.38 K/uL Normal 1.8-7.0 Lymph # 0.43 K/uL Low 1.0-4.0 [place] # 0.33 K/uL Normal 0.3-0.9 Eos # 0.00 K/uL Normal 0.0-0.5 Baso # 0.01 K/uL Normal 0.0-0.1 Immature Grans Absolute 0.04 K/uL NRBC # 0.00 K/uL Comprehensive Metabolic 10/31/2018 [facility] Glucose 112 mg/dL High 74-106 Panel [address] [place] [address] [phone] BUN 15 mg/dL Normal 7-18 Creatinine 0.9 [...] 170 U/L High 45-117 Laboratory test 10/31/2018 [facility] Magnesium 2.3 mg/dL Normal 1.8-2.4 9 finding [address] [place] [address] [phone] Differential-WB 10/10/2018 [facility] Total Cells 100 C Confirm [address] [place] Counted #CE[place] [address] [phone] Neutrophils% 91 % High 33-73 Lymph% 4 % Low 20-42 Monocyte% 3 % Normal 0-10 Eosinophil% 1 % Normal 0-5 Basophil% 1 % Normal 0-2 Platelet Estimate NORMAL Polychromasia 0-1+ Anisocytosis 0-1+ Differential Comment LARGE PLATELETS <SEE NOTE> 10 Laboratory test 10/10/2018 [facility] Path Review: <pending> finding [address] [place] [address] [phone] Slide Review 10/10/2018 [facility] Slide Review DIFF ORDERED [address] [place] [address] [phone] Laboratory test 10/10/2018 [facility] Magnesium 2.2 mg/dL Normal 1.8- finding [address] 2.4 [place] [address] [phone] Comprehensive 10/10/2018 [facility] Glucose 259 mg/dL High 74-1 Metabolic Panel [address] [place] [address] [phone] BUN 12 mg/dL Normal 7-18 Creatinine 0.9 [...] 132 U/L High 45-117 CBC W/Automated 10/10/2018 [facility] White Blood 2.9 K/uL Low 3.1-10.[address] [place] [address] [phone] Red Blood Count 3.91 M/uL Normal 3.90-5.40 [...] 40.4-72.8 Lymph % 5.6 % Low 20.0-42.0 [place] % 4.2 % Low 4.3-13.2 Eo% 0.0 % Normal 0.0-6.6 Bas% 0.3 % Normal 0.0-1.1 Immature Grans 0.7 % Normal 0.0-5.0 NRBC % 0.0 /100WBC < 10/ 100 WBC Neut# 2.56 K/uL Normal 1.8-7.0 Lymph # 0.16 K/uL Low 1.0-4.0 [place] # 0.12 K/uL Low 0.3-0.9 Eos # 0.00 K/uL Normal 0.0-0.5 Baso # 0.01 K/uL Normal 0.0-0.1 Immature Grans Absolute 0.02 K/uL NRBC # 0.00 K/uL CBC W/Automated 09/19/2018 [facility] White Blood 4.5 K/uL Normal 3.1-10.[address] Count [place], [place] [address] [phone] Red Blood Count 4.19 M/uL Normal 3.90-5.40 [...] 40.4-72.8 Lymph % 8.0 % Low 20.0-42.0 [place] % 4.5 % Normal 4.3-13.2 Eo% 0.0 % Normal 0.0-6.6 Bas% 0.4 % Normal 0.0-1.1 Immature Grans 1.3 % Normal 0.0-5.0 NRBC % 0.0 /100WBC < 10/ 100 WBC Neut# 3.85 K/uL Normal 1.8-7.0 Lymph # 0.36 K/uL Low 1.0-4.0 [place] # 0.20 K/uL Low 0.3-0.9 Eos # 0.00 K/uL Normal 0.0-0.5 Baso # 0.02 K/uL Normal 0.0-0.1 Immature Grans Absolute 0.06 K/uL NRBC # 0.00 K/uL Comprehensive Metabolic 09/19/2018 [facility] Glucose 191 mg/dL High 74-106 Panel [address] [place], [place] [address] [phone] BUN 11 mg/dL Normal 7-18 Creatinine 0.9 [...] mg/dL Normal 1.8-2.[address] [place], [place] [address] [phone] CBC W/Automated 09/13/2018 [facility] White Blood 3.5 K/uL Normal 3.1-10.[address] [place] [address] [phone] Red Blood Count 3.74 M/uL Low 3.90-5.40 [...] 40.4-72.8 Lymph % 18.7 % Low 20.0-42.0 [place] % 12.1 % Normal 4.3-13.2 Eo% 1.2 % Normal 0.0-6.6 Bas% 0.3 % Normal 0.0-1.1 Immature Grans 0.3 % Normal 0.0-5.0 NRBC % 0.0 /100WBC < 10/ 100 WBC Neut# 2.34 K/uL Normal 1.8-7.0 Lymph # 0.65 K/uL Low 1.0-4.0 [place] # 0.42 K/uL Normal 0.3-0.9 Eos # 0.04 K/uL Normal 0.0-0.5 Baso # 0.01 K/uL Normal 0.0-0.1 Immature Grans Absolute 0.01 K/uL NRBC # 0.00 K/uL CBC W/Automated 09/06/2018 [facility] White 4.1 K/uL Normal 3.1-10.[address] [place] [address] Count [phone] Red Blood Count 3.76 M/uL Low 3.90-5.40 [...] 40.4-72.8 Lymph % 17.4 % Low 20.0-42.0 [place] % 12.0 % Normal 4.3-13.2 Eo% 1.2 % Normal 0.0-6.6 Bas% 0.5 % Normal 0.0-1.1 Immature Grans 1.2 % Normal 0.0-5.0 NRBC % 0.0 /100WBC < 10/ 100 WBC Neut# 2.77 K/uL Normal 1.8-7.0 Lymph # 0.71 K/uL Low 1.0-4.0 [place] # 0.49 K/uL Normal 0.3-0.9 Eos # 0.05 K/uL Normal 0.0-0.5 Baso # 0.02 K/uL Normal 0.0-0.1 Immature Grans Absolute 0.05 K/uL NRBC # 0.00 K/uL Comprehensive 09/06/2018 [facility] Glucose 84 mg/dL Normal 74-106 Metabolic Panel [address] [place] [address] [phone] BUN 9 mg/dL Normal 7-18 Creatinine 0.7 [...] Magnesium 2.5 mg/dL High 1.8-2.4 finding [address] [place], [place] [address] [phone] Laboratory test 08/29/2018 [facility] Ferritin 228 ng/mL Normal 8-252 15 finding [address] [place], [place] [address] [phone] Iron-Tibc-%Sat 08/29/2018 [facility] Serum Iron 26 g/dL Low 50-170 [address] [place], [place] [address] [phone] Total Iron Binding Capacity 231 g/dL Low 250-450 Transferrin %Saturation 11 % Low 12-57 Comprehensive Metabolic 08/29/2018 [facility] Glucose 163 mg/dL High 74-106 Panel [address] [place], [place] [address] [phone] BUN 17 mg/dL Normal 7-18 Creatinine 0.9 [...] 91 U/L Normal 45-117 CBC W/Automated 08/29/2018 [facility] White Blood 9.3 K/uL Normal 3.1-10.[address] [place] [address] [phone] Red Blood Count 4.07 M/uL Normal 3.90-5.40 [...] 40.4-72.8 Lymph % 21.8 % Normal 20.0-42.0 [place] % 8.4 % Normal 4.3-13.2 Eo% 2.3 % Normal 0.0-6.6 Bas% 0.9 % Normal 0.0-1.1 Immature Grans 0.6 % Normal 0.0-5.0 NRBC % 0.0 /100WBC < 10/ 100 WBC Neut# 6.13 K/uL Normal 1.8-7.0 Lymph # 2.02 K/uL Normal 1.0-4.0 [place] # 0.78 K/uL Normal 0.3-0.9 Eos # 0.21 K/uL Normal 0.0-0.5 Baso # 0.08 K/uL Normal 0.0-0.1 Immature Grans Absolute 0.06 K/uL NRBC # 0.00 K/uL Laboratory 08/29/2018 [facility] Vitamin 24.1 Low 30.0-100.0 17 test finding [address] D,25-Hydroxy ng/[place] [address] [phone] Vitamin B12 08/29/2018 [facility] Vitamin B12 719 Normal 193-[address] pg/mL [place], [place] [address] [phone] Folic Acid > 20.0 ng/mL High 3.1-17.5 Vitamin B12 And 08/17/2018 [facility] Vitamin B12 515 pg/mL Normal 193-[address] [place], [place] [address] [phone] Folic Acid 9.7 ng/mL Normal 3.1-17.5 Laboratory 08/17/2018 [facility] Vitamin 15.5 Low 30.0-100.0 18 test finding [address] D,25-Hydroxy ng/[place] [address] [phone] CBC 08/17/2018 [facility] White Blood 9.1 K/uL Normal 3.1-10.7 W/Automated [address] [place] [address] [phone] Red Blood Count 4.33 M/uL Normal 3.90-5.40 [...] 40.4-72.8 Lymph % 23.4 % Normal 20.0-42.0 [place] % 7.1 % Normal 4.3-13.2 Eo% 1.5 % Normal 0.0-6.6 Bas% 0.7 % Normal 0.0-1.1 Immature Grans 0.4 % Normal 0.0-5.0 NRBC % 0.0 /100WBC < 10/ 100 WBC Neut# 6.06 K/uL Normal 1.8-7.0 Lymph # 2.12 K/uL Normal 1.0-4.0 [place] # 0.64 K/uL Normal 0.3-0.9 Eos # 0.14 K/uL Normal 0.0-0.5 Baso # 0.06 K/uL Normal 0.0-0.1 Immature Grans Absolute 0.04 K/uL NRBC # 0.00 K/uL TSH Reflex 06/07/2016 [facility] Thyroid Stim 1.99 uIU/mL Normal 0.30-4.20 19 FT4 And/Or [address] [place] Hormone FT3 [place] [address] [phone] Reflex add FT3? Y Reflex add FT4? Y Celiac 06/07/2016 [facility] Immunoglobulin A 270 mg/dL Normal 87-[address] [place] [address] [phone] Antigliadin Abs, IgG 1 units Normal 0-19 20 Antigliadin Abs, IgA 4 units Normal 0-19 21 Endomysial IgA Antibody Negative Normal Negative t-Transglutaminase IgA <2 U/mL Normal 0-3 22 t-Transglutaminase IgG <2 U/mL Normal 0-5 23 C-Reactive 06/07/2016 [facility] C-Reactive 4.70 Normal <3.0 Protein,Cardiac [address] Protein,Cardiac mg/[place] [address] [phone] Reflex add FT3? Y Reflex add FT4? Y Laboratory 06/07/2016 [facility] Sedimentation Rate 13 mm/hr Normal 0-30 test finding [address] [place] [address] [phone] Laboratory 06/06/2016 [facility] C. Difficile Toxin NEGATIVE 24, test finding [address] A/B FOR C. 25 [place] [address] <SEE NOTE> [phone] Ova & 06/06/2016 [facility] Cryptosporidium NEGATIVE [address] Specific [place] [address] <SEE NOTE> Screen [phone] Giardia Specific Antigen NEGATIVE FOR WENDIE <SEE NOTE> 27 Laboratory test 06/06/2016 [facility] Calprotectin, 27 ug/g 0-120 28, [address] Fecal [place], [place] [address] [phone] Fecal Fat, 06/06/2016 [facility] Fats, Neutral Normal . [address] [place] [address] [phone] Fats, Total Normal . 31 Stool Culture 06/06/2016 [facility] Stool Culture NO ENTERIC PATHO [address] <SEE NOTE> [place], [place] [address] [phone] . ................ <SEE NOTE> Normal 33 Note: [...] NO <SEE NOTE> 40 Laboratory test 06/06/2016 [facility] Pancreatic > 500.0 Normal >[address] Elastase (Pe-1) ug/[place] [address] [phone] 1 Z51.11 C34.31 C78.7 E86.0 E56.9 E55.9 [...] found at www.kdoqi.org. 3 STAT BHAVANA RAGLAND [employer] SUPERVISOR PORT DRAW 4 Z51.11 C34.31 C78.7 5 [...] D deficiency has been defined by the Coleman of Medicine and an Endocrine Society practice guideline as a level of serum 25-OH vitamin D less than 20 ng/mL (1,2). The Endocrine Society went on to further define vitamin D insufficiency as a level between 21 and 29 ng/mL (2). 1. IOM (Coleman of Medicine). 2010. Dietary reference intakes for calcium and D. Devi [place]: The National Academies Press. 2. Shawn Nicole, Sultana PEARL, et al. Evaluation, treatment, and prevention of vitamin D deficiency: an Endocrine Society clinical practice guideline. JCEM. 2010; 96(7):1911-. Performed at: [facility] [id number] Portrait Photographer: Carlee Ramos MD, Phone: [phone] 18 Vitamin D deficiency has been defined by the Coleman of Medicine and an Endocrine Society practice guideline as a level of serum 25-OH vitamin D less than 20 ng/mL (1,2). The Endocrine Society went on to further define vitamin D insufficiency as a level between 21 and 29 ng/mL (2). 1. IOM (Coleman of Medicine). 2010. Dietary reference intakes for calcium and D. Devi [place]: The National Academies Press. 2. Shawn Nicole, Sultana PEARL, et al. Evaluation, treatment, and prevention of vitamin D deficiency: an Endocrine Society clinical practice guideline. JCEM. 2010; 96(7):1911-. Performed at: [facility] [id number] Portrait Photographer: Carlee Ramos MD, Phone: [phone] 19 Z02.9 R19.4 20 Negative 0 - [...] 6 - 9 Positive >9 Performed at: [address] [id number] Portrait Photographer: Carlee Ramos MD, Phone: [phone] 24 Z02.9 25 NEGATIVE FOR C. DIFFICILE [...] Abnormal Repeat as clinically indicated Performed at: [address] [id number] Portrait Photographer: Carlee Ramos MD, Phone: [phone] Performed at: [address] [id number] Portrait Photographer: Sriram Bruno MD, Phone: [phone] Normal (<60 Droplets/HPF) 31 Normal (<100 [...] 100 - 200 Normal: >200 Performed at: [address] [id number] Portrait Photographer: Sriram Bruno MD, Phone: [phone] Procedures Date Code Description Status 08/29/2018 57200 Irrigation Implanted Venous Access Device For Drug System Completed 08/29/2018 41298 Collect Blood Specimen From Completely Implant Venous Completed Access Dev 08/17/2018 75136 Theraputic Or Diagnostic Injection Completed 08/15/2018 45595 Bronchospasm Provocation Evaluation Multi Spirometric Completed Determinati 08/15/2018 24208 Spirometry Completed 06/30/2016 78694 Colonoscopy With Biopsy Completed Encounters Type Date Location Provider Dx Diagnosis Office Visit 11/01/2018 [facility] [place] Z51.11 Encounter for 11:00a B., [employer] SUPERVISOR antineoplastic chemotherapy C34.31 Malignant neoplasm of lower lobe, right bronchus or lung 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 D64.81 Anemia due to antineoplastic chemotherapy Office Visit 10/11/2018 10:30a [facility] [place] Z51.11 Encounter for Bhavana Ayala., antineoplastic [employer] SUPERVISOR chemotherapy C34.31 Malignant neoplasm of lower lobe, right bronchus or lung 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 D64.81 Anemia due to antineoplastic chemotherapy Office Visit 09/20/2018 10:30a [facility] [place] Z51.11 Encounter for Bhavana Ayala., antineoplastic [employer] SUPERVISOR chemotherapy C34.31 Malignant neoplasm of lower lobe, right bronchus or lung 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 D64.81 Anemia due to antineoplastic chemotherapy Office Visit 09/06/2018 7:30a [facility] Bhavana RaglandYaakov, E86.0 Dehydration [employer] SUPERVISOR C34.31 Malignant neoplasm of lower lobe, right bronchus or lung 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
[2019-01-30 08:08] VITALS: BP 134/102
--- NOTE | 2019-01-30 08:26 | ED ---
Abdominal Pain/Female - HPI Summary HPI Summary: 58 yr old female with the complaint of epigastric abdominal pain. Onset of pain was yesterday, and it is 6/10. She has pain that is worse with eating and drinking. Associated nausea. She gets chemo for lung cancer. last chemo was two days ago. - History of Current Complaint Chief Complaint: UCAbdominalPain Stated Complaint: ABD PAIN Time Seen by Provider: 01/30/19 08:10 Pain Intensity: 8 Allergies/Adverse Reactions: Allergies Allergy/AdvReac Type Severity Reaction Status Date / Time Decongestants Allergy See Comment Uncoded 01/30/19 08:06 Home Medications: Home Medications Bevacizumab* [Avastin*] 400 mg .SEE ORDER SEE INSTRUCTIONS 01/30/19 [History Confirmed 01/30/19] Ondansetron ODT TAB* [Zofran 4 MG Odt TAB*] 4 mg PO Q6H PRN 01/30/19 [History Confirmed 01/30/19] PemETREXed* [Alimta*] 500 mg IV SEE INSTRUCTIONS 01/30/19 [History Confirmed ] PMH/Surg Hx/FS Hx/Imm Hx - Cancer History Cancer Type, Location and Year: lung cancer on chemo, last treatment 01/24 Hx Radiation Therapy: No Infectious Disease History: No Infectious Disease History: Denies: Traveled Outside the [place] in Last 30 Days - Family History Known Family History: Positive: None - Social History Occupation: Employed Full-time Alcohol Use: None Substance Use Type: Reports: None Smoking Status (MU): Former Smoker Type: Cigarettes Amount Used/How Often: 1 PPD Length of Time of Smoking/Using Tobacco: On and Off for 27 Years Have You Smoked in the Last Year: No Review of Systems Constitutional: Negative Positive: Abdominal Pain All Other Systems Reviewed And Are Negative: Yes Physical Exam Triage Information Reviewed: Yes Vital Signs On Initial Exam: Initial Vitals Temp Pulse Resp BP Pulse Ox 97.8 F 100 20 134/102 99 01/30/19 08:04 01/30/19 08:04 01/30/19 08:04 01/30/19 08:04 01/30/19 08:04 Vital Signs Reviewed: Yes Appearance: Positive: Well-Appearing, No Pain Distress Skin: Positive: Warm, Skin Color Reflects Adequate Perfusion Head/Face: Positive: Normal Head/Face Inspection Eyes: Positive: EOMI ENT: Positive: Normal ENT inspection Neck: Positive: Nontender Respiratory/Lung Sounds: Positive: Clear to Auscultation, Breath Sounds Present Cardiovascular: Positive: RRR. Negative: Murmur Abdomen Description: Positive: Other: - epigastric tenderness Musculoskeletal: Positive: Strength/ROM Intact Neurological: Positive: Sensory/Motor Intact, Alert, Oriented to Person Place, Time, CN Intact II-III, Normal Gait, Speech Normal Psychiatric: Positive: Normal Diagnostics - Vital Signs Vital Signs Temp Pulse Resp BP Pulse Ox 01/30/19 08:04 97.8 F 100 20 134/102 99 - Laboratory Lab Statement: Any lab studies that have been ordered have been reviewed, and results considered in the medical decision making process. Abdominal Pain Fem Course/Dx - Course Course Of Treatment: 58 yr old with epigastric tenderness. She will go to the ER for further work up. She does not want an ambulance. She wants to drive her. - Diagnoses Provider Diagnoses: Epigastric pain, Hypertension Discharge ED - Sign-Out/Discharge Documenting (check all that apply): Patient Departure All imaging exams completed and their final reports reviewed: No Studies - Discharge Plan Condition: Good Disposition: HOME-RECOMMEND TO ED Patient Education Materials: Acute Abdominal Pain (ED), Hypertension (ED) Referrals: Danna Capps MD [Primary Care Provider] - Additional Instructions: GO TO THE ER FOR FURTHER WORK UP NOW> SEE YOUR DOCTOR FOR A BLOOD PRESSURE RECHECK IN THE NEXT 48 hours. - Billing Disposition and Condition Condition: GOOD Disposition: Home-Recommend to ED
== END 2019-01-30 08:31 | disposition home health service (06) ==
LOC: UCCORT 07:50
DX: R10.13 Epigastric pain (principal); I10 Essential (primary) hypertension; C34.90 Malignant neoplasm of unspecified part of unspecified bronchus or lung; Z87.891 Personal history of nicotine dependence
CPT/HCPCS: 99212; G0463